=== PATIENT | male | born 1935 | race Caucasian/White ===

== ENCOUNTER 2018-03-19 13:29 | Observation (INO) | payer OTHER ==
[2018-03-19 15:13] LABS: Albumin 4.1 g/dL (3.2-5.5); Bilirubin Total 0.6 mg/dL (0.3-1.2); Protein, Total 7.3 g/dL (6.0-8.3)
--- NOTE | 2018-03-19 15:19 | RAD REPORT ---
EXAM DESCRIPTION: RAD - Chest Pa And Lat (2 Views) - 03/19/2018 3:00 pm CLINICAL HISTORY: Chest pain COMPARISON: September 2017 TECHNIQUE: PA and lateral views of the chest were obtained. FINDINGS: The lungs are clear of an acute infiltrate, failure or mass. Interstitial markings are pro minent but unchanged. Sternotomy wires are in place. Heart size is normal and central vasculature i s within normal limits. No pleural effusion or pneumothorax seen. No acute bony finding noted. Den se aortic calcifications are present without aneurysm. IMPRESSION: No acute cardiopulmonary process. Above detailed chest findings are stable from compari son.
[2018-03-19 15:27] LABS: Absolute Monocytes 0.8 K/uL (0.1-1.3); Absolute Neutrophil 3.9 K/uL (1.8-8.0); Basophils % 0.6 % (0-1.3); Eosinophils % 1.6 % (0-4.4); Hematocrit 42.4 % (39.6-49.0); Lymphocytes % 29.4 % (15.3-44.8); MCH 30.4 pg (27.0-35.0); MCV 90.2 fL (80-100); MPV 9.1 fL (7.6-11.3); Monocytes % 11.5 % (3.3-12.3)
[2018-03-19 15:45] LABS: CKMB Creatine Kinase MB 2.7 ng/ml (0.3-4.0)
[2018-03-19 16:15] LABS: Thyroid Stimulating Hormone 1.14 uIU/mL (0.34-5.60)
[2018-03-19] MEDS ORDERED: CLONIDINE HCL 0.1 MG PO PRN (18:49)
[2018-03-19] MEDS ORDERED: FINASTERIDE 5 MG PO SCH (21:00)
[2018-03-19] MEDS ORDERED: MULTIVIT MIN PO SCH (21:00)
[2018-03-19] MEDS ORDERED: SOTALOL HCL 80 MG PO SCH (21:00)
[2018-03-19] MEDS ORDERED: HYDRALAZINE 10 MG PO SCH (21:00)
[2018-03-19] MEDS ORDERED: Rosuvastatin Calcium (Crestor) 40 MG TABLET PO SCH (21:00)
[2018-03-19] MEDS ORDERED: AMLODIPINE 10 MG PO SCH (21:00)
[2018-03-19] MEDS ORDERED: LYCOPEN PO SCH (21:00)
[2018-03-19] MEDS ORDERED: LUTEIN PO SCH (21:00)
[2018-03-19] MEDS ORDERED: [UNRECOGNIZED DRUG - OTHER] PO SCH (21:00)
--- NOTE | 2018-03-19 22:52 | EKG ---
Test Date: 2018-03-19 Test Time: 15:27:30 Geology Scientist: DELMA MEASUREMENT RESULTS: Intervals: Rate: 72 HI: 192 QRSD: 84 QT: 404 QTc: 442 Grulla: P: 42 HI: 192 QRS: 30 T: 59 INTERPRETIVE STATEMENTS: Normal sinus rhythm Nonspecific ST and T wave abnormality Abnormal ECG Compared to ECG 10/25/2017 12:05:15 ST (T wave) deviation now present Sinus bradycardia no longer present Electronically Signed On 03-19-18 22:51:38 CDT by Aneudy Joel
--- NOTE | 2018-03-20 02:12 | HP ---
Date of Admission: 03/19/2018 Chief Complaint: Chest pain. History Of Present Illness: This is an 82-year-old male patient with multiple comorbidities includin g hypertension, prior history of coronary artery disease, atrial fibrillation, hyperlipidemia, takes his medications regularly. He was feeling fine until today he started to have some chest pain. The patient says that yesterday he noted that his heart rate was faster than normal and it was around 80 to 90 beats per minute and same thing happened today and today he also felt like having some chest pa in describing as pressure type of sensation in the center of his chest and this was while he was rest ing. It lasted for a while, had some associated shortness of breath. No nausea, vomiting. No diaph oresis. He has similar type of chest discomfort about 2 weeks ago as he says. After he was evaluate d at the office, decision was made to admit him to the hospital. Medications: List reviewed. Review of Systems: Cardiovascular: As mentioned above. All other systems reviewed and negative. Allergies: TO IODINE, CIPRO, AND PENICILLIN. Social History: Prior history of smoking in the past, not at present time. Use of alcohol negative. Family History: Significant for hypertension and coronary artery disease. Past Medical History: Significant for coronary artery disease, hypertension, hypothyroidism, impaire d fasting glucose, gastroesophageal reflux disease, hyperlipidemia, benign prostatic hypertrophy, ost eoarthritis at multiple sites, depression, hyperlipidemia. Cardiac cath done August 31, 2015 showed that 2 out of 3 grafts were patent and the patient did not require any intervention at that time. Past Surgical History: Significant for coronary artery bypass surgery in 2013, back surgery, laparos copic knee surgery, appendectomy, cholecystectomy, hernia repair, tonsillectomy, angioplasty with yola nt placement in leg. Physical Examination: Vital Signs: Last temperature 98, pulse 72, respiratory rate 16, blood pressure 132/68, oxygen satur ation 96%. Height 5 feet 8 inches. Weight 197 pounds. General: Awake, alert, oriented, not in distress. HEENT: Head atraumatic, normocephalic. Conjunctivae nonerythematous. Sclerae white. Mouth, no thr ush or edema noted. Ears/Nose, no mass, lesion, discharge noted. Neck: Supple. No JVD, lymph nodes, bruit, thyromegaly noted. Lungs: Bilateral good equal air entry. Clear to auscultation. No rhonchi. No rales. Heart: Presence of systolic murmur. No gallop. Abdomen: Soft, bowel sounds normal. No guarding, rigidity, tenderness, mass, hepatosplenomegaly, di stention, or bruit noted. Extremities: No leg edema. No calf tenderness. Skin: No rash, ulcer, cellulitis. Lymphatics: No lymph node enlargement in neck, supraclavicular, infraclavicular region. Neuro: No focal neurological deficit. Chest: Unremarkable. External Genitalia: Deferred. Rectal: Deferred. Diagnostic Data: Chest x-ray: No acute intrathoracic changes. EKG: No acute ST-T changes. Laboratory Data: White count 6.8, hemoglobin 14.3, platelets 170. Sodium 136, potassium 4, chloride 101, bicarb 26, BUN 15, creatinine 1.13, glucose 112. Liver function tests unremarkable. Troponin less than 0.03. TSH 1.14. Impression: 1.Angina. 2.Coronary artery disease. 3.Hypertension. 4.Hyperlipidemia. 5.Impaired fasting glucose. 6.Hypothyroidism. 7.Gastroesophageal reflux disease. 8.Benign prostatic hypertrophy. 9.Osteoarthritis, multiple sites. 10.Depression. Plan: Admit the patient to hospital for further evaluation and management of this problem. The marissa ent is appropriate for observation and we will admit him to telemetry. Consult Cardiology. We will repeat cardiac enzymes tonight. Home medications will be continued per order including his Xarelto a nd we will get echo with Doppler tomorrow. Follow up with building engineer and I will see him tomorrow m orning for followup. Details and plan of treatment discussed with the patient. APRIL/MODL Voice ID: [id number]
[2018-03-20 04:34] VITALS: O2SAT 96
--- NOTE | 2018-03-20 07:54 | ECHO ---
HEIGHT: 5 ft 8 in WEIGHT: 197 lb 8 oz DATE OF STUDY: 03/19/[address]: Kirit Justice MD 2-DIMENSIONAL: YES M.MODE: YES DOPPLER: YES COLOR FLOW: YES TDS: NO PORTABLE: NO DEFINITY: NO BUBBLE STUDY: NO DIAGNOSIS: CONGESTIVE HEART FAILURE CARDIAC HISTORY: CATHERIZATION: YES SURGERY: YES PROSTHETIC VALVE: NO PACEMAKER: NO MEASUREMENTS (cm) DIASTOLIC (NORMALS) SYSTOLIC (NORMALS) IVSd 1.2 (0.6-1.2) LA Diam 4.3 (1.9-4.0) LVEF 61% LVIDd 3.5 (3.5-5.7) LVIDs 2.4 (2.0-3.5) %FS 32% LVPWd 1.2 (0.6-1.2) Ao Diam 2.6 (2.0-3.7) 2 DIMENSIONAL ASSESSMENT: RIGHT ATRIUM: NORMAL LEFT ATRIUM: DILATED RIGHT VENTRICLE: NORMAL LEFT VENTRICLE: LEFT VENTRICULAR HYPERTROPHY TRICUSPID VALVE: NORMAL MITRAL VALVE: MILD MITRAL ANNULAR CALCIFICATION PULMONIC VALVE: NORMAL AORTIC VALVE: SCLEROSIS PERICARDIAL EFFUSION: NONE AORTIC ROOT: NORMAL LEFT VENTRICULAR WALL MOTION: PARADOXICAL SEPTAL MOTION. DOPPLER/COLOR FLOW: MILD AORTIC, MITRAL AND TRICUSPID REGURGITATION. NORMAL RIGHT VENTRICULAR SYSTOLIC PRESSURE. COMMENTS: NORMAL LEFT VENTRICULAR EJECTION FRACTION WITH PARADOXICAL SEPTAL MOTION. DILATED LEFT ATRIUM. LEFT VENTRICULAR HYPERTROPHY. MILD MITRAL ANNULAR CALCIFICATION. AORTIC SCLEROSIS WITH NO STENOSIS. MILD AORTIC, MITRAL AND TRICUSPID REGURGITATION. TECHNOLOGIST: Giovanny RAMIREZ
[2018-03-20] MEDS ORDERED: OMEPRAZOLE 40 MG PO SCH (09:00)
[2018-03-20] MEDS ORDERED: LEVOTHYROXINE 0.1 MG PO SCH (09:00)
[2018-03-20] MEDS ORDERED: CITALOPRAM HYDROBROMIDE 20 MG PO SCH (09:00)
[2018-03-20] MEDS ORDERED: NITROGLYCERIN 0.4 MG/TAB SL PRN (11:02)
[2018-03-20] MEDS ORDERED: ALPRAZOLAM 0.25 MG TABLET PO PRN (12:00)
--- NOTE | 2018-03-20 16:37 | CON ---
Date of Consultation: 03/20/[address] Justice's service on 03/19/2018. I saw the patient on 03/20/2018. Reason For Consultation: Chest pain. History Of Present Illness: Mr. FONSECA is an 82-year-old white male. He is very well known to Dr. Zachary carpenter and myself from previous office visits and admissions. He normally sees Dr. Joel as an outpat ient. He saw Dr. Justice yesterday with symptoms that are consistent with angina. Dr. Justice admitted aníbal mitchell for further evaluation and treatment. He has ruled out for an SC. His troponin was negative. CPK s, MBs, and BNPs are negative. His EKG showed nonspecific changes. Chest x-ray is negative. Echoca rdiogram, which was done before I saw him showed normal ejection fraction with paradoxical septal wal l motion, which is old. The symptoms are basically some chest pain with and without exertion that ar e substernal. They last 10-15 minutes, resolved spontaneously. Recently, Dr. Joel suddenly decrea sed his Betapace dose to 40 b.i.d. from 80 b.i.d. He does not know why. He was not aware of any issu es himself, but Dr. Joel I believe must have noticed significant bradycardia. He since then has be en noticing rapid heartbeat in the 90s, which is high for him. Whenever his heart races, he had ches t pain. Past Medical History: Include atrial fibrillation, hypertension, coronary artery disease, gastroesop hageal reflux disease, dyslipidemia, and depression. Heart catheterization in 2014, showed patent LI MA and another vein graft. He had 1 vein graft that was occluded. A stress Cardiolite, which was do ne in our office in January 2017 was normal with an ejection fraction of 75%. Allergies: IODINE, PENICILLIN, AND CIPROFLOXACIN. Review of Systems: Negative. Social History: Negative. Family History: Negative. Medications: Include Xarelto, Crestor, Betapace 40 b.i.d., hydralazine, thyroid, Neurontin, Proscar, Xanax, Norvasc, and clonidine. Physical Examination: Vital Signs: Stable. He was in normal rhythm. Heart rate was 68. HEENT: Negative. Neck: Supple. No bruits. Chest: Clear. CARDIAC: Revealed a regular rhythm and rate with S4 gallops. No murmurs or rubs. Abdomen: Benign. EXTREMITIES: Revealed no clubbing, cyanosis, or edema. Diagnostic Data: As stated earlier. Impression: 1.Coronary disease with stable angina. 2.Elevated heart rate for him with more palpitation, probably secondary to lowering the dose of Beta pace. 3.History of hypertension. 4.History of atrial fibrillation that has resolved. 5.History of gastroesophageal reflux disease. 6.Depression. 7.Dyslipidemia. Plan: I will definitely continue his present regimen for now except, I would like to go back on the Betapace to 80 mg 1 p.o. b.i.d. The patient had never complained of bradycardia type symptoms. I wi ll make sure he sees Dr. Joel sooner than his usual appointment in May. We may want to repeat a nother stress test on him. I will do that as an outpatient. The case was discussed with Dr. Justice. TORRI/RUFINA Voice ID: [id number] Report ID: [id number]
[2018-03-20] MEDS ORDERED: RIVAROXABAN 20 MG PO SCH (17:00)
[2018-03-20 17:29] VITALS: BP 143/69; TEMP 98.2
--- NOTE | 2018-03-21 18:31 | DS ---
Date of Discharge: 03/20/2018 Disposition: Discharged to go home. Physical Examination: HEENT Examination: Unremarkable. Lungs: Clear to auscultation. Heart: Sounds normal. Abdomen: Soft, bowel sounds normal. No guarding, rigidity, tenderness, or distention. Extremity Exam: No leg edema. Discharge Medications And Instructions: Continue all prior home medication, except change sotalol 80 mg, patient to take 1 tablet p.o. 2 times a day. Follow up with Dr. Joel in 2 weeks and follow up at my office in 1 month. Hospital Course: An 82-year-old male patient, admitted to the hospital with complaints of chest pain . Please see dictated H and P for more information. The patient says normally, his heart rate is ar ound 50 to 60 beats per minute, but in the last couple of days prior to admission. He noted that hea rt rate was around 80 to 90 beats per minute and he was having some chest pressure type of feeling wi th some associated shortness of breath. He has history of atrial fibrillation, and in November is year, his professional employer consultant, Dr. Joel, reduced dose of his sotalol. After he came in to see me ben souza, he was admitted to the hospital. His IA was ruled out by getting serial cardiac enzymes. The patient was seen in consultation by professional employer consultant, Dr. Miranda, and details were discussed with him to day. Echocardiogram done during this hospitalization, showed normal ejection fraction of 61%, mild a ortic, mitral and tricuspid regurgitation. The patient was asymptomatic after his admission. Detail s were discussed with Dr. Miranda, who recommended for patient to go up on the dose of his sotalol fr om half tablet 2 times a day to 1 tablet 2 times a day, and for the patient to follow up with cardiol ogist, Dr. Joel. Dr. Miranda also informed me that about a year ago, patient had a negative stress test done at office of professional employer consultant. So, another stress test was not recommended during this hospit alization. Final Diagnoses: 1.Angina. 2.Coronary artery disease. 3.Hypertension. 4.Hyperlipidemia. 5.Impaired fasting glucose. 6.Hypothyroidism. 7.Paroxysmal atrial fibrillation. 8.Gastroesophageal reflux disease. 9.Benign prostatic hypertrophy. 10.Osteoarthritis, multiple sites. 11.Depression. APRIL/MODL Voice ID: [id number] Report ID: [id number]
== END 2018-03-20 17:24 | disposition home or self-care (01) ==
LOC: 4TH 13:46
PROVIDERS: ADMIT Internal Medicine; ATTEND Internal Medicine
DX: I25.119 Atherosclerotic heart disease of native coronary artery with unspecified angina pectoris (principal); E03.9 Hypothyroidism, unspecified; I48.0 Paroxysmal atrial fibrillation; I10 Essential (primary) hypertension; K21.9 Gastro-esophageal reflux disease without esophagitis; E78.5 Hyperlipidemia, unspecified; N40.0 Benign prostatic hyperplasia without lower urinary tract symptoms; M19.90 Unspecified osteoarthritis, unspecified site; F32.9 Major depressive disorder, single episode, unspecified; R73.01 Impaired fasting glucose; Z95.1 Presence of aortocoronary bypass graft; Z88.0 Allergy status to penicillin; Z91.041 Radiographic dye allergy status
CPT/HCPCS: 36415; 71046; 80053; 82550; 82553; 83735; 84443; 84484 ×2; 85025; 93005; 93306; G0378; G0379

== ENCOUNTER 2018-10-15 12:12 | Observation (INO) | payer OTHER ==
[2018-10-15 12:32] LABS: Absolute Lymphocytes (CBC) 1.5 K/uL (0.7-4.9); Absolute Monocytes 0.5 K/uL (0.1-1.3); Absolute Neutrophil 2.4 K/uL (1.8-8.0); Basophils % 1.1 % (0-1.3); Hematocrit 42.7 % (39.6-49.0); Lymphocytes % 32.8 % (15.3-44.8); MPV 9.2 fL (7.6-11.3); Monocytes % 11.6 % (3.3-12.3)
[2018-10-15 12:35] LABS: Protime INR 1.52
[2018-10-15 12:52] LABS: ALT/SGPT 22 U/L (12-78); AST/SGOT 15 U/L (15-37); Albumin 3.6 g/dL (3.4-5.0); Alkaline Phosphatase 65 U/L (45-117); BUN Blood Urea Nitrogen 15 mg/dL (7-18); Bicarbonate 27 mmol/L (21-32); Bilirubin Direct < 0.1 mg/dL (0-0.2); Bilirubin Total 0.5 mg/dL (0.2-1.0); Glucose Level 109 mg/dL (74-106); Magnesium 2.4 mg/dL (1.8-2.4); NT PRO-BNP 177 pg/mL (<450); Potassium 4.1 mmol/L (3.5-5.1); Protein, Total 7.3 g/dL (6.4-8.2); Sodium Level 138 mmol/L (136-145); Troponin (Emerg Dept Use Only) < 0.02 ng/mL (0.0-0.045)
--- NOTE | 2018-10-15 13:17 | RAD REPORT ---
EXAM DESCRIPTION: RAD - Chest Single View - 10/15/2018 1:08 pm CLINICAL HISTORY: Left-sided chest pain COMPARISON: October 06 TECHNIQUE: AP portable chest image was obtained 1255 hour . FINDINGS: Lung volumes are low and exam is underpenetrated in technique. No peripheral mass or conso lidation. Patient has mild chronic interstitial lung disease similar to comparison. No acute failure or volume overload. Heart and vasculature are normal. No measurable pleural effusion and no pneumotho rax. No acute bony abnormality seen. No acute aortic findings suspected. IMPRESSION: Limited shallow inspiration film without acute cardiopulmonary finding. No significant change from comparison.
--- NOTE | 2018-10-15 16:33 | ER ---
Nurse's Notes [facility] Name: Thomas Glass Jr Age: 82 yrs Sex: Male : 1935 Arrival Date: 10/15/2018 Time: 12:16 Bed 6 Private MD: Diagnosis: Chest pain, unspecified Presentation: 10/15 12:06 Presenting complaint: EMS states: left sided chest pain described as "vibration" sv started around 0800 and then moved to the left lower chest wall and now describes as "throbbing pain", c/o mild SOB but has subsided. c/o generalized weakness and dizziness yesterday but has subsided. ASA 324 mg PO given. Transition of care: patient was not received from another setting of care. Onset of symptoms was October 15, 2018 at 08:00. Risk Assessment: Do you want to hurt yourself or someone else? Patient reports no desire to harm self or others. Initial Sepsis Screen: Does the patient meet any 2 criteria? No. Patient's initial sepsis screen is negative. Does the patient have a suspected source of infection? No. Patient's initial sepsis screen is negative. Care prior to arrival: Medication(s) given: ASA, 81 mg, x 4. 12:06 Method Of Arrival: EMS: [facility] sv 12:06 Acuity: NI 3 sv Triage Assessment: 12:10 General: Appears in no apparent distress. comfortable, Behavior is calm, cooperative, sv appropriate for age. Pain: Denies pain. Neuro: Level of Consciousness is awake, alert, obeys commands, Oriented to person, place, time, situation, Moves all extremities. Full function Gait is steady. Cardiovascular: Heart tones S1 S2 present Patient's skin is warm and dry. Pulses are 3+ in right radial artery and left radial artery Rhythm is sinus bradycardia. Respiratory: Airway is patent Respiratory effort is even, unlabored, Respiratory pattern is regular, symmetrical, Breath sounds are clear bilaterally. Derm: Skin is pink, warm \\T\\ dry. Historical: - Allergies: 12:37 Ciprofloxacin HCl; sv 12:37 Iodinated Contrast Media - IV Dye; sv 12:37 PENICILLINS; sv - Home Meds: 12:37 finasteride 5 mg Oral tab 1 tab nightly for Symptomatic Benign Prostatic Hyperplasia sv [Active]; levothyroxine 100 mcg tab 1 tab once daily for Hypothyroidism [Active]; gabapentin 300 mg Oral cap twice a day for Neuropathic Pain [Active]; sotalol 120 mg Oral tab 1 tab 2 times per day [Active]; Xarelto 20 mg Oral tab 1 tab nightly [Active]; alprazolam 0.25 mg Oral tab nightly for Anxiety with Depression [Active]; Crestor 40 mg Oral tab 1 tab nightly for Hypercholesterolemia [Active]; citalopram 10 mg tab 1 tab once daily for Anxiety with Depression [Active]; amlodipine 10 mg tab 1 tab once daily for Hypertension [Active]; clonidine HCl 0.1 mg Oral tab as needed [Active]; omeprazole 40 mg Oral cpDR 1 cap once daily for Gastroesophageal reflux [Active]; Centrum Silver Oral daily [Active]; furosemide 40 mg Oral tab 1 tab once daily [Active]; - PMHx: 12:37 ATHEROSCLEROSIS; BPH; Cholelithiasis; GERD; High Cholesterol; Hypertension; sv Hypothyroidism; - PSHx: 12:37 CABG; sv - Immunization history:: Flu vaccine is up to date. - Social history:: Smoking status: unknown Patient/guardian denies using alcohol. - Ebola Screening: : No symptoms or risks identified at this time. Screenin:10 Abuse screen: Denies threats or abuse. Denies injuries from another. Nutritional sv screening: No deficits noted. Tuberculosis screening: No symptoms or risk factors identified. Fall Risk None identified. Assessment: 12:44 Reassessment: Patient appears in no apparent distress at this time. No changes from sv previously documented assessment. Patient and/or family updated on plan of care and expected duration. Pain level reassessed. Patient is alert, oriented x 3, equal unlabored respirations, skin warm/dry/pink. 15:40 Reassessment: Patient appears in no apparent distress at this time. No changes from sv previously documented assessment. Patient and/or family updated on plan of care and expected duration. Pain level reassessed. Patient is alert, oriented x 3, equal unlabored respirations, skin warm/dry/pink. 17:08 Reassessment: Patient appears in no apparent distress at this time. No changes from sv previously documented assessment. Patient and/or family updated on plan of care and expected duration. Pain level reassessed. Patient is alert, oriented x 3, equal unlabored respirations, skin warm/dry/pink. Nurse to call back for report. 17:29 Reassessment: Patient appears in no apparent distress at this time. No changes from sv previously documented assessment. Patient and/or family updated on plan of care and expected duration. Pain level reassessed. Patient is alert, oriented x 3, equal unlabored respirations, skin warm/dry/pink. 17:50 Reassessment: Pt eating his dinner tray before going upstairs. sv Vital Signs: 12:10 BP 144 / 71; Pulse 57; Resp 15; Temp 98; Pulse Ox 96% ; Weight 87.54 kg; Height 5 ft. 8 sv in. (172.72 cm); Pain 0/10; 13:19 BP 114 / 65; Pulse 54; Resp 14; Pulse Ox 95% ; sv 14:05 BP 134 / 66; Pulse 53; Resp 12; Pulse Ox 95% ; sv 14:44 BP 140 / 63; Pulse 60; Resp 17; Pulse Ox 99% ; sv 15:39 BP 146 / 76; Pulse 53; Resp 14; Pulse Ox 99% ; sv 16:18 BP 137 / 68; Pulse 52; Resp 14; Pulse Ox 99% ; sv 17:09 BP 155 / 70; Pulse 53; Resp 16; Pulse Ox 99% ; sv 12:10 Body Mass Index 29.35 (87.54 kg, 172.72 cm) sv ED Course: 12:10 Arm band placed on. sv 12:10 Patient has correct armband on for positive identification. Placed in gown. Bed in low sv position. Call light in reach. Side rails up X 1. eyelet riveter on. Pulse ox on. NIBP on. Door closed. Head of bed elevated. 12:16 Patient arrived in ED. sv 12:17 Jenni Padgett, MARIANN is Primary Nurse. sv 12:25 Initial lab(s) drawn, by nm, sent to lab. Inserted saline lock: 20 gauge in left sv forearm, using aseptic technique. Blood collected. Flushed left forearm with 5 ml normal saline. 12:27 EKG done, by remanufacturing technician. reviewed by Harry Leigh MD. at1 12:30 Harry Leigh MD is Attending Physician. kdr 12:33 Triage completed. sv 12:44 ED physician to see patient. sv 12:44 Awaiting lab results, Awaiting for x-ray. sv 12:44 Patient maintains SpO2 saturation greater than 95% on room air. sv 12:57 X-ray completed. Portable x-ray completed in exam room. Patient tolerated procedure jb2 well. 13:09 XRAY Chest (1 view) In Process Unspecified. EDMS 13:19 Awaiting radiology results. Awaiting re-evaluation by ER provider. sv 14:06 Awaiting re-evaluation by ER provider. sv 16:32 Tracy Justice MD is Hospitalizing Provider. kdr 17:07 Patient admitted, IV remains in place. intact. sv 17:08 No provider procedures requiring assistance completed. sv Administered Medications: No medications were administered Outcome: 16:32 Decision to Hospitalize by Provider. kdr 17:29 Admitted to Tele accompanied by tech, via stretcher, room 413, with chart, Report sv called to Xiomara WAITE 17:29 Condition: stable 17:29 Instructed on the need for admit. 18:01 Patient left the ED. sv Signatures: Dispatcher [employer] Jenni Narayan RN RN sv Harry Leigh MD MD kdr Buechter, Jesse jb2 Kelly Glass, fire investigation manager EKG Tat1 Corrections: (The following items were deleted from the chart) 14:45 14:44 Pulse 60bpm; Resp 17bpm; Pulse Ox 99%; sv sv
--- NOTE | 2018-10-15 16:33 | EDPHYS ---
Physician Documentation [facility] Name: Thomas Glass Jr Age: 82 yrs Sex: Male : 1935 Arrival Date: 10/15/2018 Time: 12:16 Bed 6 Private MD: ED Physician Harry Leigh HPI: 10/15 18:12 This 82 yrs old Male presents to ER via EMS with complaints of Chest Pain. kdr 18:12 The patient or guardian reports chest pain that is located primarily in the anterior kdr chest wall, left, left clavicle. Onset: suddenly, at 08:30. The pain does not radiate. Initially had an unusual sensation to left shoulder that they drifted down into left chest. 18:12 Associated signs and symptoms: The patient has no apparent associated signs or kdr symptoms. The chest pain is described as aching, sharp. Duration: The patient or guardian reports multiple episodes, that are intermittent, that wax and wane, with no pattern. Modifying factors: The symptoms are alleviated by nothing. the symptoms are aggravated by nothing. Severity of pain: At its worst the pain was mild in the emergency department the pain has improved moderately. The patient has not experienced similar symptoms in the past. The patient has not recently seen a physician. Historical: - Allergies: 12:37 Ciprofloxacin HCl; sv 12:37 Iodinated Contrast Media - IV Dye; sv 12:37 PENICILLINS; sv - Home Meds: 12:37 finasteride 5 mg Oral tab 1 tab nightly for Symptomatic Benign Prostatic Hyperplasia sv [Active]; levothyroxine 100 mcg tab 1 tab once daily for Hypothyroidism [Active]; gabapentin 300 mg Oral cap twice a day for Neuropathic Pain [Active]; sotalol 120 mg Oral tab 1 tab 2 times per day [Active]; Xarelto 20 mg Oral tab 1 tab nightly [Active]; alprazolam 0.25 mg Oral tab nightly for Anxiety with Depression [Active]; Crestor 40 mg Oral tab 1 tab nightly for Hypercholesterolemia [Active]; citalopram 10 mg tab 1 tab once daily for Anxiety with Depression [Active]; amlodipine 10 mg tab 1 tab once daily for Hypertension [Active]; clonidine HCl 0.1 mg Oral tab as needed [Active]; omeprazole 40 mg Oral cpDR 1 cap once daily for Gastroesophageal reflux [Active]; Centrum Silver Oral daily [Active]; furosemide 40 mg Oral tab 1 tab once daily [Active]; - PMHx: 12:37 ATHEROSCLEROSIS; BPH; Cholelithiasis; GERD; High Cholesterol; Hypertension; sv Hypothyroidism; - PSHx: 12:37 CABG; sv - Immunization history:: Flu vaccine is up to date. - Social history:: Smoking status: unknown Patient/guardian denies using alcohol. - Ebola Screening: : No symptoms or risks identified at this time. ROS: 18:12 Constitutional: Negative for fever, chills, and weight loss, Eyes: Negative for injury, kdr pain, redness, and discharge, ENT: Negative for injury, pain, and discharge, Neck: Negative for injury, pain, and swelling, Respiratory: Negative for shortness of breath, cough, wheezing, and pleuritic chest pain, Abdomen/GI: Negative for abdominal pain, nausea, vomiting, diarrhea, and constipation, Back: Negative for injury and pain, : Negative for injury, bleeding, discharge, and swelling, MS/Extremity: Negative for injury and deformity, Skin: Negative for injury, rash, and discoloration, Neuro: Negative for headache, weakness, numbness, tingling, and seizure activity. Psych: Negative for depression, anxiety, suicide ideation, homicidal ideation, and hallucinations, Allergy/Immunology: Negative for hives, rash, and allergies, Endocrine: Negative for neck swelling, polydipsia, polyuria, polyphagia, and marked weight changes, Hematologic/Lymphatic: Negative for swollen nodes, abnormal bleeding, and unusual bruising. 18:12 Cardiovascular: Positive for chest pain, of the left supraclavicular area, left clavicle and anterior aspect of left upper chest, Negative for edema, orthopnea, palpitations, paroxysmal nocturnal dyspnea. Exam: 18:12 Constitutional: This is a well developed, well nourished patient who is awake, alert, kdr and in no acute distress. Head/Face: Normocephalic, atraumatic. Eyes: Pupils equal round and reactive to light, extra-ocular motions intact. Lids and lashes normal. Conjunctiva and sclera are non-icteric and not injected. Cornea within normal limits. Periorbital areas with no swelling, redness, or edema. Neck: Trachea midline, no thyromegaly or masses palpated, and no cervical lymphadenopathy. Supple, full range of motion without nuchal rigidity, or vertebral point tenderness. No Meningismus. Chest/axilla: Normal chest wall appearance and motion. Nontender with no deformity. No lesions are appreciated. Cardiovascular: Regular rate and rhythm with a normal S1 and S2. No gallops, murmurs, or rubs. Normal PMI, no JVD. No pulse deficits. Respiratory: Lungs have equal breath sounds bilaterally, clear to auscultation and percussion. No rales, rhonchi or wheezes noted. No increased work of breathing, no retractions or nasal flaring. Abdomen/GI: Soft, non-tender, with normal bowel sounds. No distension or tympany. No guarding or rebound. No evidence of tenderness throughout. Back: No spinal tenderness. No costovertebral tenderness. Full range of motion. Skin: Warm, dry with normal turgor. Normal color with no rashes, no lesions, and no evidence of cellulitis. MS/ Extremity: Pulses equal, no cyanosis. Neurovascular intact. Full, normal range of motion. Neuro: Awake and alert, GCS 15, oriented to person, place, time, and situation. Cranial nerves II-XII grossly intact. Motor strength 5/5 in all extremities. Sensory grossly intact. Cerebellar exam normal. Normal gait. Psych: Awake, alert, with orientation to person, place and time. Behavior, mood, and affect are within normal limits. Vital Signs: 12:10 BP 144 / 71; Pulse 57; Resp 15; Temp 98; Pulse Ox 96% ; Weight 87.54 kg; Height 5 ft. 8 sv in. (172.72 cm); Pain 0/10; 13:19 BP 114 / 65; Pulse 54; Resp 14; Pulse Ox 95% ; sv 14:05 BP 134 / 66; Pulse 53; Resp 12; Pulse Ox 95% ; sv 14:44 BP 140 / 63; Pulse 60; Resp 17; Pulse Ox 99% ; sv 15:39 BP 146 / 76; Pulse 53; Resp 14; Pulse Ox 99% ; sv 16:18 BP 137 / 68; Pulse 52; Resp 14; Pulse Ox 99% ; sv 17:09 BP 155 / 70; Pulse 53; Resp 16; Pulse Ox 99% ; sv 12:10 Body Mass Index 29.35 (87.54 kg, 172.72 cm) sv MDM: 16:32 Patient medically screened. kdr 18:12 HEART Score: History: Moderately Suspicious (1), ECG: Non specific repolarization kdr disturbance / LBTB / PM (1), Age: > or = 65 years (2), Risk Factors: 1 or 2 risk factors (1), Troponin: < or = 1 x Normal Limit (0), Total Score =. Data reviewed: vital signs, nurses notes, lab test result(s), EKG, radiologic studies. Counseling: I had a detailed discussion with the patient and/or guardian regarding: the historical points, exam findings, and any diagnostic results supporting the discharge/admit diagnosis, lab results, radiology results, the need for further work-up and treatment in the hospital. 10/15 12:17 Order name: Basic Metabolic Panel; Complete Time: 15:11 sv 10/15 12:17 Order name: CBC with Diff; Complete Time: 15:11 sv 10/15 12:17 Order name: LFT's; Complete Time: 15:11 sv 10/15 12:17 Order name: Magnesium; Complete Time: 15:11 sv 10/15 12:17 Order name: NT PRO-BNP; Complete Time: 15:11 sv 10/15 12:17 Order name: PT-INR; Complete Time: 15:11 sv 10/15 12:17 Order name: Troponin (emerg Dept Use Only); Complete Time: 15:11 sv 10/15 16:53 Order name: Basic Metabolic Panel EDNY 10/15 16:53 Order name: Basic Metabolic Panel EDNY 10/15 16:53 Order name: CBC with Automated Diff EDMS 10/15 16:53 Order name: CBC with Automated Diff EDMS 10/15 16:54 Order name: Troponin I EDNY 10/15 16:54 Order name: Troponin I EDNY 10/15 16:54 Order name: Troponin I EDNY 10/15 12:17 Order name: XRAY Chest (1 view); Complete Time: 15:11 sv 10/15 12:17 Order name: EKG; Complete Time: 12:20 sv 10/15 12:17 Order name: Cardiac monitoring; Complete Time: 12:41 sv 10/15 12:17 Order name: EKG - Nurse/Tech; Complete Time: 12:41 sv 10/15 12:17 Order name: IV Saline Lock; Complete Time: 12:41 sv 10/15 12:17 Order name: Labs collected and sent; Complete Time: 12:41 sv 10/15 12:17 Order name: O2 Per Protocol; Complete Time: 12:41 sv 10/15 12:17 Order name: O2 Sat Monitoring; Complete Time: 12:41 sv 10/15 16:53 Order name: CONS Physician Consult EDMS 10/15 16:53 Order name: Regular EDMS 10/15 16:53 Order name: EKG Electrocardiogram EDMS 10/15 16:53 Order name: EKG Electrocardiogram EDMS 10/15 16:53 Order name: EKG Electrocardiogram EDMS 10/15 16:53 Order name: EKG Electrocardiogram EDMS Administered Medications: No medications were administered Disposition: 10/15/18 16:32 Hospitalization ordered by Tracy Justice for Observation. Preliminary diagnosis is Chest pain, unspecified. - Bed requested for Telemetry/MedSurg (observation). - Status is Observation. sv - Condition is Fair. - Problem is new. - Symptoms have improved. UTI on Admission? No Signatures: Dispatcher [facility] EDNY Jenni Padgett RN RN Cordelia David RN RN Harry Gong MD MD kdr Corrections: (The following items were deleted from the chart) 17:00 16:32 Hospitalization Ordered by A Reshma MCWILLIAMS for Observation. Preliminary diagnosis is dw Chest pain, unspecified. Bed requested for Telemetry/MedSurg (observation). Status is Observation. Condition is Fair. Problem is new. Symptoms have improved. UTI on Admission? No. kdr 18:01 17:00 10/15/2018 16:32 Hospitalization Ordered by A Reshma MCWILLIAMS for Observation. sv Preliminary diagnosis is Chest pain, unspecified. Bed requested for Telemetry/MedSurg (observation). Status is Observation. Condition is Fair. Problem is new. Symptoms have improved. UTI on Admission? No. dw
[2018-10-15] MEDS ORDERED: ACETAMINOPHEN 500 MG TAB PO PRN (16:50)
[2018-10-15] MEDS ORDERED: ONDANSETRON 4 MG/2 ML VIAL IV PRN (16:50)
--- NOTE | 2018-10-15 17:16 | EKG ---
Test Date: 2018-10-15 Test Time: 12:21:08 Needle Grader: DELMA MEASUREMENT RESULTS: Intervals: Rate: 58 AL: 194 QRSD: 78 QT: 470 QTc: 461 [place]: P: 21 AL: 194 QRS: 13 T: 60 INTERPRETIVE STATEMENTS: Sinus bradycardia Possible Left atrial enlargement Nonspecific T wave abnormality Abnormal ECG Compared to ECG 03/19/2018 15:27:30 T-wave abnormality now present Sinus rhythm no longer present ST (T wave) deviation no longer present Electronically Signed On 10-15-18 17:15:55 VAMP PRESSER by Aneudy Joel
[2018-10-15] MEDS ORDERED: NITROGLYCERIN SL PRN (19:21)
[2018-10-15] MEDS ORDERED: CLONIDINE HCL 0.1 MG PO PRN (19:21)
[2018-10-15] MEDS ORDERED: ALPRAZOLAM 0.25 MG PO PRN (19:21)
[2018-10-15] MEDS ORDERED: LYCOPEN PO SCH (21:00)
[2018-10-15] MEDS ORDERED: HOME MED 1 EA UNK (Rivaroxaban [Xarelto] 20 MG) PO SCH (21:00)
[2018-10-15] MEDS ORDERED: [UNRECOGNIZED DRUG - OTHER] PO SCH (21:00)
[2018-10-15] MEDS ORDERED: FINASTERIDE 5 MG PO SCH (21:00)
[2018-10-15] MEDS ORDERED: GABAPENTIN 300 MG PO SCH (21:00)
[2018-10-15] MEDS ORDERED: SOTALOL HCL 80 MG PO SCH (21:00)
[2018-10-15] MEDS ORDERED: HYDRALAZINE PO SCH (21:00)
[2018-10-15] MEDS ORDERED: HOME MED 1 EA UNK (Amlodipine [Norvasc*] 5 MG) PO SCH (21:00)
[2018-10-15] MEDS ORDERED: LUTEIN PO SCH (21:00)
[2018-10-15] MEDS ORDERED: MULTIVIT MIN PO SCH (21:00)
[2018-10-15] MEDS ORDERED: HOME MED 1 EA UNK (Rosuvastatin Calcium [Crestor] 40 MG) PO SCH (21:00)
[2018-10-15 23:07] VITALS: BMI 29.6
[2018-10-16 04:31] LABS: Absolute Lymphocytes (CBC) 1.8 K/uL (0.7-4.9); Absolute Monocytes 0.7 K/uL (0.1-1.3); Absolute Neutrophil 1.9 K/uL (1.8-8.0); Basophils % 1.2 % (0-1.3); Eosinophils % 3.5 % (0-4.4); Hematocrit 43.2 % (39.6-49.0); Lymphocytes % 38.6 % (15.3-44.8); MPV 9.1 fL (7.6-11.3); Monocytes % 15.4 % (3.3-12.3); RBC Red Blood Cell Count 4.78 M/uL (4.33-5.43)
[2018-10-16 05:09] LABS: BUN Blood Urea Nitrogen 15 mg/dL (7-18); Bicarbonate 26 mmol/L (21-32); Glucose Level 94 mg/dL (74-106); Potassium 3.6 mmol/L (3.5-5.1); Sodium Level 139 mmol/L (136-145)
--- NOTE | 2018-10-16 05:30 | HP ---
Date of Admission: 10/15/2018 Chief Complaint: Chest pain. History Of Present Illness: This is an 82-year-old male patient who lives at [facility] with multi ple comorbidities including underlying history of coronary artery disease, who was doing fine in his usual normal state of health until yesterday evening, started to have left-sided chest pain in the ar ea above the left breast. The pain lasted for approximately 2 hours and then got relieved. The pain originally started in the left shoulder region and then concentrated in the left chest area as menti oned here. He had some associated chills and shortness of breath type of feeling with this pain. Af ter the pain went away, he was able to go to sleep; and this morning when he woke up, he started to h ave this pain again. Denies any fall or injury. No cough, cold, or congestion. No expectoration. No hemoptysis. He called my office with this complaints, and he was advised to come to the emergency room. After he was evaluated in the ER, he was admitted to the hospital. I saw him this evening. The patient's pain has improved since he came in to emergency room. Medications: List reviewed. Review of Systems: Cardiovascular: As mentioned above. All other systems reviewed and negative. Allergies: TO IODINE, CIPRO, AND PENICILLIN. Social History: Prior history of smoking, not at present time. Use of alcohol is negative. Family History: Significant for hypertension and coronary artery disease. Past Medical History: Significant for coronary artery disease, hypertension, hyperlipidemia, hypothy roidism, impaired fasting glucose, gastroesophageal reflux disease, benign prostatic hypertrophy, ost eoarthritis at multiple sites, depression, and paroxysmal atrial fibrillation. Cardiac catheterizati on done on August 31, 2015, showing 2 out of 3 grafts were patent, and the patient did not require a ny intervention at that time. Past Surgical History: Significant for coronary artery bypass surgery in 2014, back surgery, laparos copic knee surgery, appendectomy, cholecystectomy, hernia repair, tonsillectomy, angioplasty with yola nt placement in leg. Physical Examination: Vital Signs: Temperature 98.1, pulse 58, respiratory rate 18, blood pressure 162/65, and oxygen satu ration 96%. His height 5 feet 8 inches, weight 195 pounds. General: Awake, alert, oriented, not in distress. HEENT: Head atraumatic, normocephalic. Conjunctivae nonerythematous. Sclerae white. Mouth, no thr ush or edema noted. Ears/Nose, no mass, lesion, discharge noted. Neck: Supple. No JVD, lymph nodes, bruit, thyromegaly noted. Lungs: Bilateral good equal air entry. Clear to auscultation. No rhonchi. No rales. Heart: Normal heart sounds, no murmur or gallop. Abdomen: Soft, bowel sounds normal. No guarding, rigidity, tenderness, mass, hepatosplenomegaly, dis tention, or bruit noted. Extremities: No leg edema. No calf tenderness. Skin: No rash, ulcer, cellulitis. Lymphatics: No lymph node enlargement in neck, supraclavicular, infraclavicular region. Neuro: No focal neurological deficit. Chest: Unremarkable. External Genitalia: Deferred. Rectal: Deferred. Laboratory Data: White count 4.6, hemoglobin 14.6, and platelets 198. Sodium 138, potassium 4.1, ch loride 106, bicarb 27, BUN 15, creatinine 1, glucose 109, and magnesium 2.4. Liver function tests un remarkable. Troponin less than 0.02. EKG; sinus bradycardia. No acute ST-T changes. Chest x-ray; no acute cardiopulmonary changes. Impression: 1.Chest pain. 2.Coronary artery disease. 3.Hypertension. 4.Hyperlipidemia. 5.Paroxysmal atrial fibrillation. 6.Chronic anticoagulation therapy. 7.Hypothyroidism. 8.Impaired fasting glucose. 9.Gastroesophageal reflux disease. 10.Benign prostatic hypertrophy. 11.Osteoarthritis, multiple sites. Plan: Admit the patient to hospital for further evaluation and management of this problem. The marissa ent is appropriate for observation. We will admit him to telemetry. Continue home medications per o rder. The patient has his medication supply from home. I have instructed him to take his nighttime medication dose including his Xarelto. So far, 2 sets of cardiac enzymes are negative. We will cons t audio visual arts director in the morning, and I will see him tomorrow morning for followup. APRIL/MODL Voice ID: [id number]
[2018-10-16] MEDS ORDERED: [UNRECOGNIZED DRUG - OTHER] PO SCH (09:00)
[2018-10-16] MEDS ORDERED: HOME MED 1 EA UNK (Citalopram Hydrobromide [Citalopram Hbr] 40 MG) PO SCH (09:00)
[2018-10-16] MEDS ORDERED: LYCOP PO SCH (09:00)
[2018-10-16] MEDS ORDERED: ASPIRIN EC 81 MG TAB PO SCH (09:00)
[2018-10-16] MEDS ORDERED: LEVOTHYROXINE 0.1 MG PO SCH (09:00)
[2018-10-16] MEDS ORDERED: IRON PO SCH (09:00)
[2018-10-16] MEDS ORDERED: MULTIVITS CA MIN PO SCH (09:00)
[2018-10-16] MEDS ORDERED: HOME MED 1 EA UNK (Omeprazole [Prilosec] 40 MG) PO SCH (09:00)
[2018-10-16 12:08] VITALS: O2SAT 94
[2018-10-16 13:14] VITALS: BP 125/62; TEMP 99
--- NOTE | 2018-10-17 04:28 | CON ---
Date of Consultation: 10/16/2018 Admitted on 10/15/[address] Justice's service. Reason For Consultation: Chest pain. History Of Present Illness: Mr. Glass is an 82-year-old white male. He is very well known to us fro m previous office visits and admissions. Over the last 2 days or so, has been having this chest pain that is more in the left shoulder and the left upper chest area. He has also been having some diarr hea and nausea but no vomiting or diaphoresis. Denied any shortness of breath. He denied fevers or chills or cough. Denied PND, orthopnea, pedal edema, palpitations, or syncope. Has already ruled ou t for RI. His CPKs and MBs were negative. Troponin was negative. Chest x-ray was negative. EKG sh owed nonspecific changes. Past Medical History: Includes hypertension, dyslipidemia, status post CABG, gastroesophageal reflux disease, hypothyroidism, and gallstones. His last catheterization in 2014 showed a patent CARLSON to t he LAD, patent vein graft to the RCA, and occluded vein graft to the OM. His last stress test was ne gative in January 2017. Allergies: HE IS ALLERGIC TO IODINE, CIPROFLOXACIN, AND PENICILLIN. Review of Systems: Negative. Social History: Negative. Family History: Noncontributory. Medications At Home: Include sotalol, Xanax, Norvasc, Crestor, Xarelto, Prilosec, clonidine as neede d, hydralazine, Synthroid, Neurontin, and finasteride. Physical Examination: Vital Signs: Stable. He was afebrile. General: He was alert, oriented x3. He was in no acute distress. HEENT: Negative. Neck: Supple without any bruit, lymphadenopathy, JVD, or thyromegaly. Chest: Clear to auscultation and percussion. Cardiac: Revealed a regular rhythm and rate with an aortic sclerosis murmur, but no gallops or rubs. Abdomen: Benign. Extremities: Revealed no clubbing, cyanosis, or edema. Skin: Dry and intact. Vascular: Revealed positive dorsalis pedis and posterior tibial bilaterally. Diagnostic Data: All within normal limit as stated earlier. Impression And Plan: 1.Atypical chest pain, although it could be possibly stable angina knowing his coronary anatomy. Hi s last stress test was in January 2017. I will make sure he gets another one as an outpatient and see us in the near future. I would continue his present regimen, although it is possible that we could a dd Imdur or certainly could add Ranexa as well. 2.Atrial fibrillation and sinus rhythm, on sotalol and Xarelto. We will continue monitoring that. 3.Dyslipidemia, on Crestor. He has adequate LDL. 4.Gastroesophageal reflux, on Prilosec. 5.Anxiety, on Xanax. 6.Hypertension, on Norvasc, hydralazine, and clonidine. This is well controlled. 7.Hypothyroidism, on Synthroid. 8.Neuropathy, on Neurontin. 9.Benign prostatic hypertrophy, on finasteride. 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 11.History of gallstones. The case was discussed with Dr. Justice. Case was discussed with the patient and the nurses. 45 minute s approximate were spent in the care of Mr. Glass. TORRI/RUFINA Voice ID: [id number] Report ID: [id number]
--- NOTE | 2018-10-17 07:02 | EKG ---
Test Date: 2018-10-16 Test Time: 08:20:59 Cremator: DELMA MEASUREMENT RESULTS: Intervals: Rate: 60 IL: 226 QRSD: 84 QT: 452 QTc: 452 [place]: P: 44 IL: 226 QRS: 21 T: 46 INTERPRETIVE STATEMENTS: Sinus rhythm with sinus arrhythmia with 1st degree AV block Nonspecific T wave abnormality Abnormal ECG Compared to ECG 10/15/2018 12:21:08 First degree AV block now present Sinus bradycardia no longer present T-wave abnormality still present Electronically Signed On 10-17-18 06:53:28 TOUCH UP PAINTER HAND by Toni Miranda
--- NOTE | 2018-10-17 20:10 | DS ---
Date of Discharge: 10/16/2018 The patient was seen this morning for followup. Denies any chest pain or shortness of breath. No co mplaints reported this morning. Physical Examination: Vital Signs: Reviewed. HEENT: Unremarkable. Lungs: Clear to auscultation. Heart: Sounds normal. Abdomen: Soft. Bowel sounds normal. No guarding, rigidity, tenderness, or distention. Extremities: No leg edema. Laboratory Data: This morning, white count 4.6, hemoglobin 14.8, and platelets 183. Sodium 139, pot assium 3.6, chloride 105, bicarb 26, BUN 15, creatinine 0.80, and glucose 94. Troponin less than 0.0 2 x3. Hospital Course: This is an 82-year-old male patient with multiple comorbidities including hypertens ion, hyperlipidemia, atrial fibrillation, and coronary artery disease, came into emergency room with complaints of chest pain and after he was evaluated in the ER, he was admitted to the hospital. Taj nunez see dictated H and P for more information. After the patient was admitted to the hospital, his [place] was ruled out by getting serial cardiac enzymes. This morning, cardiology consultation was obtained from Dr. Miranda. He evaluated the patient and I did talk to him after his evaluation and he inform ed me that from cardiology point of view, the patient is cleared for discharge and he will review off ice record and decide if the patient needs to have elective outpatient stress test. Depending on whe n he had one done, the patient was instructed to follow up with Dr. Miranda's office as Dr. Ruth dean informed him. Dr. Miranda suggested to start him on isosorbide mononitrate or Ranexa, so pres cription was sent for isosorbide mononitrate 30 mg daily and the patient will continue all his previo us home medications as he was taking prior to this admission. He will follow up at my office as per his scheduled appointment, which is beginning part of the next year. Final Diagnoses: 1.Chest pain. 2.Coronary artery disease. 3.Hypertension. 4.Hyperlipidemia. 5.Paroxysmal atrial fibrillation. 6.Chronic anticoagulation therapy. 7.Hypothyroidism. 8.Impaired fasting glucose. 9.Gastroesophageal reflux disease. 10.Benign prostatic hypertrophy. 11.Osteoarthritis, multiple sites. APRIL/MODL Voice ID: [id number] Report ID: [id number]
== END 2018-10-16 16:00 | disposition home or self-care (01) ==
LOC: ER 12:12 → ERHOLD 16:49 → 4TH 17:29
PROVIDERS: ADMIT Internal Medicine; ATTEND Internal Medicine
DX: R07.9 Chest pain, unspecified (principal); I25.10 Atherosclerotic heart disease of native coronary artery without angina pectoris; I10 Essential (primary) hypertension; E78.5 Hyperlipidemia, unspecified; I48.2 Chronic atrial fibrillation; E03.9 Hypothyroidism, unspecified; R73.01 Impaired fasting glucose; K21.9 Gastro-esophageal reflux disease without esophagitis; N40.0 Benign prostatic hyperplasia without lower urinary tract symptoms; M19.90 Unspecified osteoarthritis, unspecified site; G62.9 Polyneuropathy, unspecified; Z79.01 Long term (current) use of anticoagulants; Z95.1 Presence of aortocoronary bypass graft; Z88.0 Allergy status to penicillin
CPT/HCPCS: 36415; 71045; 80048 ×2; 80076; 83735; 83880; 84484 ×3; 85025 ×2; 85610; 93005 ×2; 99285; G0378 ×2

== ENCOUNTER 2020-09-05 19:43 | Emergency (ER) | payer OTHER ==
[2020-09-05 20:22] LABS: Absolute Lymphocytes (CBC) 1.9 K/uL (0.7-4.9); Basophils % 1.1 % (0-1.3); Hematocrit 42.7 % (39.6-49.0); Lymphocytes % 33.3 % (15.3-44.8); MPV 9.1 fL (7.6-11.3); RBC Red Blood Cell Count 4.76 M/uL (4.33-5.43)
[2020-09-05 20:23] LABS: Protime INR 0.95
[2020-09-05 20:50] LABS: ALT/SGPT 21 U/L (12-78); Albumin 3.7 g/dL (3.4-5.0); Alkaline Phosphatase 81 U/L (45-117); BUN Blood Urea Nitrogen 15 mg/dL (7-18); Bicarbonate 30 mmol/L (21-32); Bilirubin Direct < 0.1 mg/dL (0-0.2); Bilirubin Total 0.5 mg/dL (0.2-1.0); Glucose Level 108 mg/dL (74-106); NT PRO-BNP 283 pg/mL (<450); Protein, Total 7.8 g/dL (6.4-8.2); Sodium Level 138 mmol/L (136-145); Troponin (Emerg Dept Use Only) < 0.02 ng/mL (0.0-0.045)
[2020-09-05 20:51] LABS: AST/SGOT 27 U/L (15-37); Magnesium 2.3 mg/dL (1.8-2.4); Potassium 4.2 mmol/L (3.5-5.1)
--- NOTE | 2020-09-05 20:51 | RAD REPORT ---
EXAM DESCRIPTION: RAD - Chest Single View - 09/05/2020 8:37 pm CLINICAL HISTORY: CHEST PAIN COMPARISON: Portable May 2019 TECHNIQUE: AP portable chest image was obtained 09/05/2020 8:37 pm . FINDINGS: Lung volumes are low. No peripheral mass or consolidation. Hazy left base opacification is primarily portable technique and pericardial fat pad. Minimal left base infiltrate cannot be exclude d given a left chest pain history. Heart and vasculature are normal. No measurable pleural effusion a nd no pneumothorax. No acute bony abnormality seen. No acute aortic findings. Sternotomy wires are in place. Patient does have dense aortic calcification. IMPRESSION: Limited portable examination shows hazy left base opacification. In a patient with history of left-sided chest pain, early infiltrate while not suspected, cannot be e xcluded.
--- NOTE | 2020-09-05 22:44 | ER ---
Nurse's Notes [facility] Name: Thomas Glass Jr Age: 84 yrs Sex: Male : 1935 Arrival Date: 09/05/2020 Time: 19:44 Bed 19 Private MD: Diagnosis: Chest pain. Uncontrolled hypertension Presentation: 09/05 20:02 Chief complaint: EMS states: "pt called us reporting chest pain and high blood jd3 pressure. he took his Clonidine which took care of his blood pressure but he was still reporting that dull left sided chest pain.". Coronavirus screen: At this time, the client does not indicate any symptoms associated with coronavirus-19. Ebola Screen: Patient negative for fever greater than or equal to 101.5 degrees Fahrenheit, and additional compatible Ebola Virus Disease symptoms. Initial Sepsis Screen: Does the patient meet any 2 criteria? No. Patient's initial sepsis screen is negative. Does the patient have a suspected source of infection? No. Patient's initial sepsis screen is negative. Risk Assessment: Do you want to hurt yourself or someone else? Patient reports no desire to harm self or others. Onset of symptoms was September 05, 2020. 20:02 Method Of Arrival: EMS: [facility] jd3 20:02 Acuity: NI 3 jd3 Historical: - Allergies: 20:04 Ciprofloxacin HCl; jd3 20:04 Iodinated Contrast Media - IV Dye; jd3 20:04 PENICILLINS; jd3 - PMHx: 20:04 Hypertension; High Cholesterol; Hypothyroidism; Cholelithiasis; GERD; ATHEROSCLEROSIS; jd3 BPH; - PSHx: 20:04 Cholecystectomy; Appendectomy; Tonsillectomy; CABG; Spinal Surgery; triple bypass; jd3 - Immunization history:: Adult Immunizations up to date. - Social history:: Smoking status: Patient denies any tobacco usage or history of. Screenin:15 Abuse screen: Denies threats or abuse. Denies injuries from another. Nutritional rr5 screening: No deficits noted. Tuberculosis screening: No symptoms or risk factors identified. Fall Risk IV access (20 points). Gait- Impaired (20 pts.). Mental Status- Oriented to own ability (0 pts). Total Arriola Fall Scale indicates Low Risk Score (25-44 pts). Fall prevention measures have been instituted. Side Rails Up X 2 Placed close to Nursing Station Frequent Obs/Assesments occuring As available Patient and Family Educated on Fall Prevention Program and strategies. Assessment: 20:10 General: Appears in no apparent distress. comfortable, Behavior is calm, cooperative, rr5 appropriate for age. Pain: Complains of pain in chest Pain does not radiate. Pain currently is 3 out of 10 on a pain scale. Quality of pain is described as pressure, Pain began gradually, Is intermittent. Neuro: Level of Consciousness is awake, alert, obeys commands, Oriented to person, place, time, situation. Cardiovascular: Reports chest pain, high BP Capillary refill < 3 seconds Patient's skin is warm and dry. Respiratory: Airway is patent Respiratory effort is even, unlabored, Respiratory pattern is regular, symmetrical. GI: No signs and/or symptoms were reported involving the gastrointestinal system. : No signs and/or symptoms were reported regarding the genitourinary system. EENT: No signs and/or symptoms were reported regarding the EENT system. Derm: Skin is intact, is healthy with good turgor, Skin temperature is warm. Musculoskeletal: Circulation, motion, and sensation intact. Capillary refill < 3 seconds. 21:45 Reassessment: Patient appears in no apparent distress at this time. Patient is alert, rr5 oriented x 3, equal unlabored respirations, skin warm/dry/pink. reassessment done by ED provider with order made and carriedout. 22:55 Reassessment: Patient appears in no apparent distress at this time. Patient is alert, rr5 oriented x 3, equal unlabored respirations, skin warm/dry/pink. discharge instruction given and explained without complaints made. Vital Signs: 20:04 BP 167 / 81; Pulse 65; Resp 17 S; Pulse Ox 97% on R/A; jd3 21:00 BP 155 / 62; Pulse 69; Resp 17; Pulse Ox 98% ; rr5 21:45 BP 146 / 72; Pulse 64; Resp 19; Temp 98.4; Pulse Ox 99% ; rr5 22:55 BP 135 / 62; Pulse 60; Resp 16; Temp 98.5; Pulse Ox 99% ; rr5 ED Course: 19:44 Patient arrived in ED. am2 20:03 Mau Chakraborty, RN is Primary Nurse. rr5 20:03 Triage completed. jd3 20:05 Arm band placed on. EKG completed in triage. Results shown to MD. cheryl 20:09 Laurent Hernandez MD is Attending Physician. pkl 20:10 Patient has correct armband on for positive identification. Placed in gown. Bed in low rr5 position. Call light in reach. Side rails up X2. awake overnight monitor on. Pulse ox on. NIBP on. 20:10 Maintain EMS IV. Dressing intact. Site clean \\T\\ dry. Gauge \\T\\ site: G20 ight hand. rr 5 20:15 EKG done, by ED staff, reviewed by Laurent Hernandez MD. rr5 20:33 Patient maintains SpO2 saturation greater than 95% on room air. rr5 20:37 XRAY Chest (1 view) In Process Unspecified. EDMS 23:00 No provider procedures requiring assistance completed. IV discontinued, intact, rr5 bleeding controlled, No redness/swelling at site. Pressure dressing applied. Administered Medications: No medications were administered Outcome: 22:43 Discharge ordered by . pkl 22:55 Discharged to home via wheelchair. rr5 22:55 Condition: stable 22:55 Discharge instructions given to patient, Instructed on discharge instructions, follow up and referral plans. Demonstrated understanding of instructions, follow-up care. 23:00 Patient left the ED. rr5 Signatures: Dispatcher [employer] EDMS Laurent Hernandez MD MD pkKelly Argueta Jonathon RN RN jMau West RN RN rr5
--- NOTE | 2020-09-05 22:44 | EDPHYS ---
Physician Documentation [facility] Name: Thomas Glass Jr Age: 84 yrs Sex: Male : 1935 Arrival Date: 09/05/2020 Time: 19:44 Bed 19 Private MD: ED Physician Laurent Hernandez HPI: 09/05 20:23 This 84 yrs old Male presents to ER via EMS with complaints of High Blood pkl Pressure, Chest Pressure. 20:23 The patient or guardian reports chest pain that is located primarily in the left upper pkl chest. Onset: just prior to arrival, 4 hour(s) ago. The pain does not radiate. Associated signs and symptoms: Pertinent positives: Elevated blood pressure. The chest pain is described as a pressure. Patient said he took a Clonidine 0.1 mg earlier and noticed his BP is coming down. Historical: - Allergies: 20:04 Ciprofloxacin HCl; jd3 20:04 Iodinated Contrast Media - IV Dye; jd3 20:04 PENICILLINS; jd3 - PMHx: 20:04 Hypertension; High Cholesterol; Hypothyroidism; Cholelithiasis; GERD; ATHEROSCLEROSIS; jd3 BPH; - PSHx: 20:04 Cholecystectomy; Appendectomy; Tonsillectomy; CABG; Spinal Surgery; triple bypass; jd3 - Immunization history:: Adult Immunizations up to date. - Social history:: Smoking status: Patient denies any tobacco usage or history of. ROS: 20:23 Eyes: Negative for injury, pain, redness, and discharge, ENT: Negative for injury, pkl pain, and discharge, Neck: Negative for injury, pain, and swelling. 20:23 Cardiovascular: Positive for chest pain, of the left upper chest. 20:23 Respiratory: Negative for cough, shortness of breath. 20:23 Abdomen/GI: Negative for abdominal pain, nausea, vomiting, and diarrhea. 20:23 Back: Negative for acute changes. 20:23 : Negative for injury or acute deformity. 20:23 MS/extremity: Negative for acute changes. 20:23 Skin: Negative for rash. 20:23 Neuro: Negative for altered mental status. Exam: 20:23 Head/Face: Normocephalic, atraumatic. Eyes: Pupils equal round and reactive to light, pkl extra-ocular motions intact. Lids and lashes normal. Conjunctiva and sclera are non-icteric and not injected. Cornea within normal limits. Periorbital areas with no swelling, redness, or edema. ENT: Nares patent. No nasal discharge, no septal abnormalities noted. Tympanic membranes are normal and external auditory canals are clear. Oropharynx with no redness, swelling, or masses, exudates, or evidence of obstruction, uvula midline. Mucous membranes moist. Neck: Trachea midline, no thyromegaly or masses palpated, and no cervical lymphadenopathy. Supple, full range of motion without nuchal rigidity, or vertebral point tenderness. No Meningismus. Chest/axilla: Normal chest wall appearance and motion. Nontender with no deformity. No lesions are appreciated. Cardiovascular: Regular rate and rhythm with a normal S1 and S2. No gallops, murmurs, or rubs. Normal PMI, no JVD. No pulse deficits. Respiratory: Lungs have equal breath sounds bilaterally, clear to auscultation and percussion. No rales, rhonchi or wheezes noted. No increased work of breathing, no retractions or nasal flaring. Abdomen/GI: Soft, non-tender, with normal bowel sounds. No distension or tympany. No guarding or rebound. No evidence of tenderness throughout. Back: No spinal tenderness. No costovertebral tenderness. Full range of motion. Skin: Warm, dry with normal turgor. Normal color with no rashes, no lesions, and no evidence of cellulitis. MS/ Extremity: Pulses equal, no cyanosis. Neurovascular intact. Full, normal range of motion. Neuro: Awake and alert, GCS 15, oriented to person, place, time, and situation. Cranial nerves II-XII grossly intact. Motor strength 5/5 in all extremities. Sensory grossly intact. Cerebellar exam normal. Normal gait. Vital Signs: 20:04 BP 167 / 81; Pulse 65; Resp 17 S; Pulse Ox 97% on R/A; jd3 21:00 BP 155 / 62; Pulse 69; Resp 17; Pulse Ox 98% ; rr5 21:45 BP 146 / 72; Pulse 64; Resp 19; Temp 98.4; Pulse Ox 99% ; rr5 22:55 BP 135 / 62; Pulse 60; Resp 16; Temp 98.5; Pulse Ox 99% ; rr5 MDM: 20:09 Patient medically screened. pkl 22:38 Data reviewed: vital signs, nurses notes, lab test result(s), EKG, radiologic studies, pkl plain films. ED course: Patient feeling better. BP is now normal. Chest pain has resolved. Patient not in any distress. Discussed lab, EKG and X "rays results with patient. Advised to follow up with PCP in 2 to 3 days. Patient understood instructions. 09/05 20:04 Order name: Basic Metabolic Panel; Complete Time: 21:42 rr5 09/05 20:04 Order name: CBC with Diff; Complete Time: 21:42 rr5 09/05 20:04 Order name: LFT's; Complete Time: 21:42 rr5 09/05 20:04 Order name: Magnesium; Complete Time: 21:42 rr5 09/05 20:04 Order name: NT PRO-BNP; Complete Time: 21:42 rr5 09/05 20:04 Order name: PT-INR; Complete Time: 21:42 rr5 09/05 20:04 Order name: Troponin (emerg Dept Use Only); Complete Time: 21:42 rr5 09/05 20:04 Order name: XRAY Chest (1 view); Complete Time: 21:42 rr5 09/05 20:04 Order name: EKG; Complete Time: 20:05 rr5 09/05 20:04 Order name: Cardiac monitoring; Complete Time: 20:22 rr5 09/05 20:04 Order name: EKG - Nurse/Tech; Complete Time: 20:22 rr5 09/05 20:04 Order name: IV Saline Lock; Complete Time: 20:23 rr5 09/05 21:47 Order name: EKG; Complete Time: 21:47 pkl 09/05 21:47 Order name: Troponin (emerg Dept Use Only); Complete Time: 22:44 pkl 09/05 20:04 Order name: Labs collected and sent; Complete Time: 20:23 rr5 09/05 20:04 Order name: O2 Per Protocol; Complete Time: 20:23 rr5 09/05 20:04 Order name: O2 Sat Monitoring; Complete Time: 20:23 rr5 Administered Medications: No medications were administered Disposition: 09/05/20 22:43 Discharged to Home. Impression: Chest pain. Uncontrolled hypertension. - Condition is Stable. - Medication Reconciliation Form, Thank You Letter, Antibiotic Education, Prescription Opioid Use form. - Follow up: Private Physician; When: 2 - 3 days; Reason: Re-evaluation by your physician. - Problem is new. - Symptoms have improved. Signatures: Dispatcher [employer] Laurent Miller MD MD pkKip Whitt RN RN jd3 Mau Chakraborty RN RN rr5 Corrections: (The following items were deleted from the chart) 23:00 22:43 09/05/2020 22:43 Discharged to Home. Impression: Chest pain. Uncontrolled rr5 hypertension. Condition is Stable. Forms are Medication Reconciliation Form, Thank You Letter, Antibiotic Education, Prescription Opioid Use. Follow up: Private Physician; When: 2 - 3 days; Reason: Re-evaluation by your physician. Problem is new. Symptoms have improved. pkl
[2020-09-06 07:53] VITALS: BP 146/72; TEMP 98.4; O2SAT 99
--- NOTE | 2020-09-06 12:05 | EKG ---
Test Date: 2020-09-05 Test Time: 19:49:31 Lab Clerk: RR MEASUREMENT RESULTS: Intervals: Rate: 63 IN: 212 QRSD: 82 QT: 446 QTc: 456 Basile: P: 48 IN: 212 QRS: 53 T: 34 INTERPRETIVE STATEMENTS: Sinus rhythm with 1st degree AV block Nonspecific T wave abnormality Abnormal ECG Compared to ECG 06/10/2019 07:47:50 Sinus bradycardia no longer present Prolonged QT interval no longer present T-wave abnormality still present Electronically Signed On 09-06-20 12:03:11 [employer]GER [employer] by Toni Miranda
--- NOTE | 2020-09-06 12:05 | EKG ---
Test Date: 2020-09-05 Test Time: 21:50:22 Hide Paster: RR MEASUREMENT RESULTS: Intervals: Rate: 59 LA: 206 QRSD: 86 QT: 470 QTc: 465 [place]: P: 31 LA: 206 QRS: 35 T: 73 INTERPRETIVE STATEMENTS: Sinus bradycardia Cannot rule out Anterior infarct, age undetermined Abnormal ECG Compared to ECG 09/05/2020 19:49:31 Myocardial infarct finding now present Sinus rhythm no longer present First degree AV block no longer present T-wave abnormality no longer present Electronically Signed On 09-06-20 12:03:09 SECURITY [employer] by Toni Miranda
== END 2020-09-05 23:00 | disposition home or self-care (01) ==
LOC: ER 19:43
DX: I10 Essential (primary) hypertension (principal); Z88.0 Allergy status to penicillin; Z88.1 Allergy status to other antibiotic agents; Z95.1 Presence of aortocoronary bypass graft; Z91.041 Radiographic dye allergy status
CPT/HCPCS: 36415; 71045; 80048; 80076; 83735; 83880; 84484; 85025; 85610; 93005; 99285

== ENCOUNTER 2020-11-29 10:34 | Observation (INO) | payer OTHER ==
--- NOTE | 2020-11-29 11:18 | RAD REPORT ---
EXAM DESCRIPTION: RAD - Chest Single View - 11/29/2020 11:07 am CLINICAL HISTORY: CHEST PAIN Chest pain. COMPARISON: Chest Single View dated 09/05/2020; Chest Single View dated 06/09/2019; Chest Single View dated 10/15/2018; Chest Pa And Lat (2 Views) dated 10/06/2018 FINDINGS: Portable technique limits examination quality. Mild interstitial pulmonary edema. The heart is mildly prominent size with aortic atherosclerosis. St ernotomy wires present. IMPRESSION: Mild CHF.
[2020-11-29 11:39] LABS: Absolute Lymphocytes (CBC) 1.5 K/uL (0.7-4.9); Hematocrit 40.7 % (39.6-49.0); Lymphocytes % 29.5 % (15.3-44.8); MPV 9.4 fL (7.6-11.3); RBC Red Blood Cell Count 4.46 M/uL (4.33-5.43)
[2020-11-29 11:45] LABS: Protime INR 1.27
[2020-11-29 11:54] LABS: ALT/SGPT 21 U/L (12-78); AST/SGOT 14 U/L (15-37); Albumin 3.4 g/dL (3.4-5.0); Alkaline Phosphatase 64 U/L (45-117); BUN Blood Urea Nitrogen 14 mg/dL (7-18); Bicarbonate 29 mmol/L (21-32); Bilirubin Direct 0.1 mg/dL (0-0.2); Bilirubin Total 0.4 mg/dL (0.2-1.0); Glucose Level 103 mg/dL (74-106); Magnesium 2.3 mg/dL (1.8-2.4); NT PRO-BNP 287 pg/mL (<450); Potassium 4.7 mmol/L (3.5-5.1); Protein, Total 6.9 g/dL (6.4-8.2); Sodium Level 142 mmol/L (136-145); Troponin (Emerg Dept Use Only) < 0.02 ng/mL (0.0-0.045)
[2020-11-29] MEDS ORDERED: NA CHLORIDE 0.9% 500 ML ONE (12:23)
[2020-11-29] MEDS ORDERED: FUROSEMIDE 20 MG/ 2ML VIAL ONE (13:02)
--- NOTE | 2020-11-29 13:36 | EDPHYS ---
Physician Documentation [facility] Name: Thomas Glass Jr Age: 85 yrs Sex: Male : 1935 Arrival Date: 11/29/2020 Time: 10:47 Bed 13 Private MD: ED Physician Alice Wiggins HPI: 11/29 11:00 This 85 yrs old Male presents to ER via EMS with complaints of Chest Pain > cp 30 y/o. 11:00 The patient or guardian reports chest pain that is located primarily in the anterior cp chest wall, left. 11:00 Onset: 1 hour(s) ago. cp 11:00 The pain does not radiate. Associated signs and symptoms: Pertinent negatives: cp abdominal pain, diaphoresis, dizziness, lower extremity pain, lower extremity swelling, palpitations, shortness of breath, syncope. The chest pain is described as crushing. Duration: The patient or guardian reports a single episode, that is still ongoing, but improving. Modifying factors: The symptoms are alleviated by ASA, 325mg NTG, X2. Severity of pain: in the emergency department the pain has improved markedly. EMS care prior to arrival includes: aspirin, nitroglycerin, x 2 with marked improvement. Historical: - Allergies: 10:58 Ciprofloxacin HCl; ca1 10:58 Iodinated Contrast Media - IV Dye; ca1 10:58 PENICILLINS; ca1 - PMHx: 10:58 ATHEROSCLEROSIS; BPH; Cholelithiasis; GERD; High Cholesterol; Hypertension; ca1 Hypothyroidism; - PSHx: 10:58 Cholecystectomy; Appendectomy; Tonsillectomy; CABG; Spinal Surgery; triple bypass; ca1 - Immunization history:: Pneumococcal vaccine is up to date, Flu vaccine is up to date. Covid 1st shot. - Social history:: Smoking status: Patient denies any tobacco usage or history of. ROS: 11:05 Constitutional: Negative for body aches, chills, fever, poor PO intake. cp 11:05 Eyes: Negative for injury, pain, redness, and discharge. cp 11:05 ENT: Negative for ear pain, sore throat, difficulty swallowing, difficulty handling secretions. 11:05 Neck: Negative for pain with movement, pain at rest, stiffness. 11:05 Cardiovascular: Positive for chest pain, Negative for edema, palpitations. 11:05 Respiratory: Negative for cough, shortness of breath, wheezing. 11:05 Abdomen/GI: Negative for abdominal pain, nausea, vomiting, and diarrhea. 11:05 Back: Negative for radiated pain. 11:05 Neuro: Negative for altered mental status, dizziness, headache, numbness, syncope, weakness. 11:05 All other systems are negative. Exam: 10:50 ECG was reviewed by the Attending Physician. cp 11:10 Head/Face: Normocephalic, atraumatic. cp 11:10 Constitutional: The patient appears in no acute distress, alert, awake, non-diaphoretic, non-toxic, well developed, well nourished. 11:10 Eyes: Periorbital structures: appear normal, Conjunctiva: normal, no exudate, no injection, Sclera: no appreciated abnormality, Lids and lashes: appear normal, bilaterally. 11:10 ENT: External ear(s): are unremarkable, Nose: is normal, Mouth: Lips: moist, Oral mucosa: pink and intact, moist, Posterior pharynx: Airway: no evidence of obstruction, patent. 11:10 Neck: ROM/movement: is normal, is supple, without pain, no range of motions limitations, no nuchal rigidity. 11:10 Chest/axilla: Inspection: normal, Palpation: is normal, no crepitus, no tenderness. 11:10 Cardiovascular: Rate: bradycardic, Rhythm: regular, Pulses: Pulses are 2+ in right radial artery and left radial artery. Edema: is not appreciated, JVD: is not appreciated. 11:10 Respiratory: the patient does not display signs of respiratory distress, Respirations: normal, no use of accessory muscles, no retractions, labored breathing, is not present, Breath sounds: are clear throughout, no decreased breath sounds, no stridor, no wheezing. 11:10 Abdomen/GI: Inspection: abdomen appears normal, Bowel sounds: active, all quadrants, Palpation: abdomen is soft and non-tender, in all quadrants, rebound tenderness, is not appreciated, voluntary guarding, is not appreciated, involuntary guarding, is not appreciated. 11:10 Back: pain, is absent, ROM is normal. 11:10 Skin: no rash present. 11:10 Neuro: Orientation: to person, place \T\ time. Mentation: is normal, Cerebellar function: is grossly normal, Motor: moves all fours, strength is normal, Sensation: is normal. Vital Signs: 10:51 BP 124 / 63; Pulse 56; Resp 15 S; Temp 98.2(O); Pulse Ox 97% on R/A; Weight 92.99 kg ca1 (R); Height 5 ft. 8 in. (172.72 cm) (R); Pain 3/10; 11:48 BP 91 / 55; Pulse 51; Resp 14 S; Pulse Ox 97% on R/A; ca1 12:30 BP 144 / 69; Pulse 53; Resp 16 S; Pulse Ox 98% on R/A; ca1 13:50 BP 95 / 63; Pulse 49; Resp 15 S; Pulse Ox 95% on R/A; ca1 14:44 BP 108 / 65; Pulse 47; Resp 15 S; Pulse Ox 95% on R/A; ca1 15:50 BP 146 / 72; Pulse 52; Resp 16 S; Pulse Ox 96% on R/A; ca1 16:57 BP 143 / 72; Pulse 61; Resp 15 S; Pulse Ox 99% on R/A; ca1 10:51 Body Mass Index 31.17 (92.99 kg, 172.72 cm) ca1 MDM: 11:02 Patient medically screened. cp 11:40 Differential diagnosis: abnormal EKG, acute myocardial infarction, chest wall pain, cp pleurisy, pneumonia, pneumothorax, pulmonary embolus, stable angina, thoracic aortic disection, unstable angina. 13:21 Physician consultation: A Reshma MCWILLIAMS was called at 13:21, will call back to discuss cp patient. 13:30 Test interpretation: by ED physician or midlevel provider: ECG, plain radiologic cp studies. 13:32 The patient was not given aspirin in the Emergency Department. Administered by EMS. cp Data reviewed: vital signs, nurses notes, lab test result(s), radiologic studies, plain films, and as a result, I will admit patient. Physician consultation: Tracy Justice MD was contacted at 13:33, regarding admission, to the telemetry unit. patient's condition, would like consultation with Dr. Miranda. 11/29 10:52 Order name: Basic Metabolic Panel cp 11/29 10:52 Order name: CBC with Diff cp 11/29 10:52 Order name: LFT's cp 11/29 10:52 Order name: Magnesium cp 11/29 10:52 Order name: NT PRO-BNP cp 11/29 10:52 Order name: PT-INR cp 11/29 10:52 Order name: Troponin (emerg Dept Use Only) cp 11/29 11:45 Order name: CBC with Automated Diff; Complete Time: 12:06 EDMS 11/29 11:48 Order name: Protime (+INR); Complete Time: 12:06 EDMS 11/29 11:55 Order name: Basic Metabolic Panel; Complete Time: 12:06 EDMS 11/29 11:55 Order name: Liver (Hepatic) Function; Complete Time: 12:06 EDMS 11/29 11:55 Order name: Troponin (Emerg Dept Use Only); Complete Time: 12:06 EDMS 11/29 11:55 Order name: NT PRO-BNP; Complete Time: 12:06 EDMS 11/29 11:55 Order name: Magnesium; Complete Time: 12:06 EDMS 11/29 10:52 Order name: XRAY Chest (1 view) 11/29 10:52 Order name: EKG; Complete Time: 11:42 11/29 11:44 Order name: RAD; Complete Time: 12:06 EDMS 11/29 13:14 Order name: Urine Dipstick--Ancillary (enter results) bd 11/29 13:57 Order name: SARS-COV-2 RT PCR EDDC 11/29 14:01 Order name: Basic Metabolic Panel EDDC 11/29 14:01 Order name: Basic Metabolic Panel EDDC 11/29 14:01 Order name: CBC with Automated Diff EDDC 11/29 14:01 Order name: CBC with Automated Diff EDDC 11/29 14:01 Order name: Troponin I EDDC 11/29 14:01 Order name: Troponin I EDDC 11/29 14:01 Order name: Troponin I EDDC 11/29 10:52 Order name: Cardiac monitoring; Complete Time: 11:01 11/29 10:52 Order name: EKG - Nurse/Tech; Complete Time: 11:01 11/29 10:52 Order name: IV Saline Lock; Complete Time: 11: 11/29 10:52 Order name: Labs collected and sent; Complete Time: 11:30 11/29 10:52 Order name: O2 Per Protocol; Complete Time: 11: 11/29 10:52 Order name: O2 Sat Monitoring; Complete Time: 11: 11/29 12:08 Order name: Urine Dipstick-Ancillary (obtain specimen); Complete Time: 13:12 cp 11/29 14:01 Order name: CONS Physician Consult EDDC 11/29 14:01 Order name: Regular EDMS 11/29 14:01 Order name: EKG Electrocardiogram EDMS 11/29 14:01 Order name: EKG Electrocardiogram EDMS 11/29 14:01 Order name: EKG Electrocardiogram EDDC 11/29 14:01 Order name: EKG Electrocardiogram EDDC EC:50 Rate is 56 beats/min. Rhythm is regular. RI interval is prolonged at 212 msec. QRS cp interval is normal. QT interval is normal. Interpreted by me. Reviewed by me. Administered Medications: 12:12 Not Given (Hemodynamic Parameters): morphine 2 mg IVP once; RASS on ADMIN: Combtv4, ca1 Very Agttd3, Agttd2, Rstlss1, AlertClm0, Drwsy-1, Lt Sdtn-2, Mod Sdtn-3, Dp Sdtn-4, UnArsble-5 12:12 Drug: NS 0.9% 500 ml Route: IV; Rate: bolus; Site: left forearm; ca1 13:00 Follow up: Response: No adverse reaction; IV Status: Completed infusion; IV Intake: ca1 500ml 12:40 Drug: Lasix 20 mg Route: IVP; Site: left forearm; ca1 16:00 Follow up: Urine output 1500 ml; Response: No adverse reaction ca1 Disposition: 18:22 Co-signature as Attending Physician, Alice Wiggins MD. ma2 Disposition: 11/29/20 13:35 Hospitalization ordered by Tracy Justice for Observation. Preliminary diagnosis are Chest pain, unspecified, Unspecified combined systolic (congestive) and diastolic (congestive) heart failure. - Bed requested for Telemetry/MedSurg (observation). - Status is Observation. ca1 - Condition is Stable. - Problem is new. - Symptoms have improved. Signatures: Dispatcher [employer] EDDC Cordelia See RN RN Buddy Garvey PA PA cp Alzahri, Mohammad, MD MD ma2 Acob, Cheryl, RN RN ca1 Corrections: (The following items were deleted from the chart) 12:59 12:08 CORONAVIRUS+MR.LAB.BRZ ordered. EDDC EDMS 16:33 13:35 Hospitalization Ordered by A Reshma MCWILLIAMS for Observation. Preliminary diagnosis is dw Chest pain, unspecified; Unspecified combined systolic (congestive) and diastolic (congestive) heart failure. Bed requested for Telemetry/MedSurg (observation). Status is Observation. Condition is Stable. Problem is new. Symptoms have improved. cp 17:19 16:33 11/29/2020 13:35 Hospitalization Ordered by A Reshma MCWILLIAMS for Observation. ca1 Preliminary diagnosis is Chest pain, unspecified; Unspecified combined systolic (congestive) and diastolic (congestive) heart failure. Bed requested for Telemetry/MedSurg (observation). Status is Observation. Condition is Stable. Problem is new. Symptoms have improved. dw
--- NOTE | 2020-11-29 13:36 | ER ---
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 Pain described as crushing on ca1 the upper L chest. Given ASA 324, Nitro SL x 2. IV G20 RAC. EKG12L NSR with 1st degree heart block. HX of Double CABG 5 years ago. BGL 85. Negative Respi s/s. Negative fever. Coronavirus screen: Client denies travel out of the [place] in the last 14 days. At this time, the client does not indicate any symptoms associated with coronavirus-19. Ebola Screen: Patient negative for fever greater than or equal to 101.5 degrees Fahrenheit, and additional compatible Ebola Virus Disease symptoms Patient denies exposure to infectious person. Patient denies travel to an Ebola-affected area in the 21 days before illness onset. No symptoms or risks identified at this time. Initial Sepsis Screen: Does the patient meet any 2 criteria? No. Patient's initial sepsis screen is negative. Does the patient have a suspected source of infection? No. Patient's initial sepsis screen is negative. Risk Assessment: Do you want to hurt yourself or someone else? Patient reports no desire to harm self or others. Onset of symptoms was November 29, 2020 at 10:00. 10:51 Acuity: NI 3 ca1 10:51 Method Of Arrival: EMS: [facility] ca1 Triage Assessment: 10:58 General: Appears in no apparent distress. comfortable, Behavior is calm, cooperative, ca1 appropriate for age. Pain: Complains of pain in anterior aspect of left upper chest Pain does not radiate. Pain currently is 3 out of 10 on a pain scale. Quality of pain is described as crushing, Pain began 1 hour ago. Is continuous. EENT: No signs and/or symptoms were reported regarding the EENT system. Neuro: Level of Consciousness is awake, alert, obeys commands, Oriented to person, place, time, situation. Cardiovascular: Heart tones S1 S2 present Capillary refill < 3 seconds Patient's skin is warm and dry. Rhythm is sinus rhythm with 1st degree heart block. Respiratory: Airway is patent Respiratory effort is even, unlabored, Respiratory pattern is regular, symmetrical, Breath sounds are clear bilaterally. GI: Abdomen is round non-distended, Bowel sounds present X 4 quads. Abd is soft and non tender X 4 quads. : No signs and/or symptoms were reported regarding the genitourinary system. Derm: Skin is intact, is healthy with good turgor, Skin is pink, warm \T\ dry. Musculoskeletal: Circulation, motion, and sensation intact. Capillary refill < 3 seconds. Historical: - Allergies: 10:58 Ciprofloxacin HCl; ca1 10:58 Iodinated Contrast Media - IV Dye; ca1 10:58 PENICILLINS; ca1 - PMHx: 10:58 ATHEROSCLEROSIS; BPH; Cholelithiasis; GERD; High Cholesterol; Hypertension; ca1 Hypothyroidism; - PSHx: 10:58 Cholecystectomy; Appendectomy; Tonsillectomy; CABG; Spinal Surgery; triple bypass; ca1 - Immunization history:: Pneumococcal vaccine is up to date, Flu vaccine is up to date. Covid 1st shot. - Social history:: Smoking status: Patient denies any tobacco usage or history of. Screenin:00 Abuse screen: Denies threats or abuse. Denies injuries from another. Nutritional ca1 screening: No deficits noted. Tuberculosis screening: No symptoms or risk factors identified. Fall Risk IV access (20 points). Assessment: 11:00 Reassessment: see triage notes. Pain: Complains of pain in anterior aspect of left ca1 upper chest Pain does not radiate. Pain currently is 3 out of 10 on a pain scale. Quality of pain is described as crushing, Pain began 1 hour ago. Is continuous. 11:48 Reassessment: Patient appears in no apparent distress at this time. Patient and/or ca1 family updated on plan of care and expected duration. Pain level reassessed. Patient is alert, oriented x 3, equal unlabored respirations, skin warm/dry/pink. Patient states feeling better. Patient states symptoms have improved. 12:49 Reassessment: Patient appears in no apparent distress at this time. Patient and/or ca1 family updated on plan of care and expected duration. Pain level reassessed. Patient is alert, oriented x 3, equal unlabored respirations, skin warm/dry/pink. 13:50 Reassessment: Patient appears in no apparent distress at this time. Patient and/or ca1 family updated on plan of care and expected duration. Pain level reassessed. Patient is alert, oriented x 3, equal unlabored respirations, skin warm/dry/pink. 14:52 Reassessment: Patient appears in no apparent distress at this time. Patient and/or ca1 family updated on plan of care and expected duration. Pain level reassessed. Patient is alert, oriented x 3, equal unlabored respirations, skin warm/dry/pink. 15:50 Reassessment: Patient appears in no apparent distress at this time. Patient and/or ca1 family updated on plan of care and expected duration. Pain level reassessed. Patient is alert, oriented x 3, equal unlabored respirations, skin warm/dry/pink. 16:57 Reassessment: Patient appears in no apparent distress at this time. Patient and/or ca1 family updated on plan of care and expected duration. Pain level reassessed. Patient is alert, oriented x 3, equal unlabored respirations, skin warm/dry/pink. Vital Signs: 10:51 BP 124 / 63; Pulse 56; Resp 15 S; Temp 98.2(O); Pulse Ox 97% on R/A; Weight 92.99 kg ca1 (R); Height 5 ft. 8 in. (172.72 cm) (R); Pain 3/10; 11:48 BP 91 / 55; Pulse 51; Resp 14 S; Pulse Ox 97% on R/A; ca1 12:30 BP 144 / 69; Pulse 53; Resp 16 S; Pulse Ox 98% on R/A; ca1 13:50 BP 95 / 63; Pulse 49; Resp 15 S; Pulse Ox 95% on R/A; ca1 14:44 BP 108 / 65; Pulse 47; Resp 15 S; Pulse Ox 95% on R/A; ca1 15:50 BP 146 / 72; Pulse 52; Resp 16 S; Pulse Ox 96% on R/A; ca1 16:57 BP 143 / 72; Pulse 61; Resp 15 S; Pulse Ox 99% on R/A; ca1 10:51 Body Mass Index 31.17 (92.99 kg, 172.72 cm) ca1 ED Course: 10:47 Patient arrived in ED. ca1 10:52 Buddy Mcmullen PA is PHCP. cp 10:52 Alice Wiggins MD is Attending Physician. cp 10:57 Triage completed. ca1 10:58 Arm band placed on right wrist. ca1 11:00 Patient has correct armband on for positive identification. Placed in gown. Bed in low ca1 position. Call light in reach. Side rails up X2. monitoring engineer on. Pulse ox on. NIBP on. Warm blanket given. 11:01 Cande De La Garza RN is Primary Nurse. ca1 11:01 No provider procedures requiring assistance completed. Patient maintains SpO2 ca1 saturation greater than 95% on room air. 11:15 IV discontinued, intact, bleeding controlled, No redness/swelling at site. Pressure ca1 dressing applied, EMS IV not flushing and drawing blood. 11:31 Initial lab(s) drawn, by ED staff, sent to lab. Inserted saline lock: 20 gauge in left ca1 forearm, using aseptic technique. 13:34 Tracy Justice MD is Hospitalizing Provider. cp Administered Medications: 12:12 Not Given (Hemodynamic Parameters): morphine 2 mg IVP once; RASS on ADMIN: Combtv4, ca1 Very Agttd3, Agttd2, Rstlss1, AlertClm0, Drwsy-1, Lt Sdtn-2, Mod Sdtn-3, Dp Sdtn-4, UnArsble-5 12:12 Drug: NS 0.9% 500 ml Route: IV; Rate: bolus; Site: left forearm; ca1 13:00 Follow up: Response: No adverse reaction; IV Status: Completed infusion; IV Intake: ca1 500ml 12:40 Drug: Lasix 20 mg Route: IVP; Site: left forearm; ca1 16:00 Follow up: Urine output 1500 ml; Response: No adverse reaction ca1 Intake: 13:00 IV: 500ml; Total: 500ml. ca1 Output: 16:00 Urine: 1500ml; Total: 1500ml. ca1 Outcome: 13:35 Decision to Hospitalize by Provider. cp 16:58 Admitted to Med/surg accompanied by tech, via wheelchair, room 224. ca1 16:58 Condition: stable 16:58 Instructed on the need for admit. 17:19 Patient left the ED. ca1 Signatures: Buddy Mcmullen PA PA cp Cande De La Garza RN RN ca1 Corrections: (The following items were deleted from the chart) 11:32 11:01 Maintain EMS IV. Dressing intact. Good blood return noted. Site clean \T\ dry. ca1 Gauge \T\ site: 20G RAC. ca1
[2020-11-29 13:57] LABS: Urine Blood NEGATIVE (NEG); Urine Glucose NEGATIVE (NEG); Urine Protein NEGATIVE (NEG)
[2020-11-29] MEDS ORDERED: ONDANSETRON 4 MG/2 ML VIAL IV PRN (13:58)
[2020-11-29] MEDS ORDERED: MORPHINE 2 MG/ML SYR IV PRN (13:58)
[2020-11-29 17:40] VITALS: BMI 32.8
[2020-11-30 05:38] LABS: Absolute Lymphocytes (CBC) 1.6 K/uL (0.7-4.9); Basophils % 1.1 % (0-1.3); Hematocrit 40.9 % (39.6-49.0); Lymphocytes % 33.2 % (15.3-44.8); MPV 9.1 fL (7.6-11.3); RBC Red Blood Cell Count 4.48 M/uL (4.33-5.43)
[2020-11-30 05:58] LABS: Potassium 3.7 mmol/L (3.5-5.1)
--- NOTE | 2020-11-30 07:03 | HP ---
Date of Admission: 11/29/2020 Chief Complaint: Chest pain. History Of Present Illness: This is an 85-year-old very pleasant male patient, who lives at [facility] and was in his usual state of health until yesterday late evening. He started to have some vague ch est pain in the left upper anterior chest area. The patient says that this chest pain was mild and w as continuous and it persisted since it started all throughout the night and this morning when he wok e up and as he went for breakfast and came back, he noted that the pain had intensified. His blood p ressure was high, when he checked it was around 174/94. He took his blood pressure medication and bl ood pressure did not come down, went up and he was still having chest pain, so he came to emergency r oom. After he came to ER, he was evaluated and admitted to the hospital. Gelatin Maker Utility, Dr. Miranda has evaluated him and when I saw him, he was asymptomatic. Denies any aggravating or relieving facto r for the chest pain. Allergies: TO PENICILLIN, CAUSING SHORTNESS OF BREATH; CIPRO AND IODINE, CAUSING THROAT SWELLING TYP E OF FEELING. Medications: List reviewed. Review of Systems: Cardiovascular: As mentioned above. All other systems reviewed and negative. Past Medical History: Significant for peripheral neuropathy, impaired fasting glucose, hypothyroidis m, hypertension, mixed hyperlipidemia, coronary artery disease, chronic atrial fibrillation, chronic anticoagulation therapy, diverticulosis, leg edema, osteoarthritis at multiple sites, vitamin B12 def iciency, anxiety, vitamin D deficiency. Past Surgical History: Cataract surgery, tonsillectomy, coronary artery bypass surgery in June 10, 2014, cholecystectomy, appendectomy, hernia repair, back surgery. Family History: Father , details unknown. Mother had hypertension and uterine cancer. Sister h ad hepatitis C. Social History: Prior history of smoking, not at present time. Use of alcohol negative. Physical Examination: Vital Signs: Temperature 97.6, pulse 47, respiratory rate 18, blood pressure 158/73, oxygen saturati on 96%. Height 5 feet 8 inches, weight 216 pounds. General: Awake, alert, oriented, not in distress. HEENT: Head atraumatic, normocephalic. Conjunctivae nonerythematous. Sclerae white. Mouth, no thr ush or edema noted. Ears/Nose, no mass, lesion, discharge noted. Neck: Supple. No JVD, lymph nodes, bruit, thyromegaly noted. Lungs: Bilateral good equal air entry. Clear to auscultation. No rhonchi. No rales. Heart: Normal heart sounds, no murmur or gallop. Abdomen: Soft, bowel sounds normal. No guarding, rigidity, tenderness, mass, hepatosplenomegaly, di stention, or bruit noted. Extremities: No leg edema. No calf tenderness. Skin: No rash, ulcer, cellulitis. Lymphatics: No lymph node enlargement in neck, supraclavicular, infraclavicular region. Neuro: No focal neurological deficit. Chest: Unremarkable. External Genitalia: Deferred. Rectal: Deferred. Laboratory Data: White count 5, hemoglobin 13.4, platelets 185. Sodium 142, potassium 4.7, chloride 106, bicarb 29, BUN 14, creatinine 1, glucose 103. Liver function tests normal. Troponin less than 0.02. Urinalysis negative. COVID-19 test negative. Chest x-ray shows mild CHF pattern. EKG, no a cute ST-T changes. Impression: 1.Chest pain. 2.Coronary artery disease. 3.Hypertension. 4.Mixed hyperlipidemia. 5.Hypothyroidism. 6.Peripheral neuropathy. 7.Chronic atrial fibrillation. 8.Chronic anticoagulation therapy. 9.Osteoarthritis, multiple sites. 10.Anxiety. Plan: We will go ahead and admit patient to hospital. Keep him on telemetry. Get serial cardiac en zymes. Consult ladle handler and Dr. Miranda has evaluated him, details were discussed with him. Irena e medications will be continued and I will see him tomorrow for followup. Dr. Miranda will evaluate his office record to see when was the last time patient had echocardiogram and stress test and then h e will provide appropriate recommendation about those test to be done. Details were discussed with t he patient. APRIL/MODL Voice ID: [id number]
[2020-11-30 08:46] VITALS: TEMP 97.8
[2020-11-30] MEDS ORDERED: ASPIRIN EC 81 MG TAB PO SCH (09:00)
[2020-11-30 11:48] VITALS: O2SAT 95
--- NOTE | 2020-11-30 12:19 | EKG ---
Test Date: 2020-11-29 Test Time: 10:43:09 Wrapper Layer And Examiner Soft Work: DEDRA MEASUREMENT RESULTS: Intervals: Rate: 56 MA: 212 QRSD: 78 QT: 460 QTc: 443 [place]: P: 38 MA: 212 QRS: 40 T: 103 INTERPRETIVE STATEMENTS: Sinus bradycardia with 1st degree AV block Nonspecific ST and T wave abnormality Abnormal ECG Compared to ECG 09/05/2020 21:50:22 First degree AV block now present ST (T wave) deviation now present Myocardial infarct finding no longer present Electronically Signed On 11-30-20 12:15:38 HOME HEALTH CARE PROVIDER by Toni Miranda
[2020-11-30 13:44] VITALS: BP 130/65
--- NOTE | 2020-12-03 21:31 | CON ---
Date of Consultation: 11/29/2020 Reason For Consultation: Chest pain. History Of Present Illness: Mr. Glass is an 85-year-old male. He is known to me from previous [facility] visits and admissions. He has a history of hypertension, dyslipidemia, gastroesophageal reflux dis ease, cholelithiasis, benign prostatic hypertrophy, coronary artery disease, and hypothyroidism. He has had a history of CABG in the past along other surgeries including spinal surgery, tonsillectomy, appendectomy, and cholecystectomy. Came in with left upper chest pain that was sharp, did not radiat e. No nausea, vomiting, diaphoresis, PND, orthopnea, pedal edema, palpitation, or syncope. At one oi, he described the pain as crushing and his symptoms were alleviated in the hospital with aspirin and nitroglycerin. Allergies: INCLUDE CIPROFLOXACIN, IODINE, AND PENICILLIN. Past Medical History: As stated above. Review of Systems: Negative. Social History: Negative. Family History: Noncontributory. Medications: At home include Xanax, Norvasc, citalopram, Proscar, gabapentin, hydralazine, Imdur, Sy nthroid, magnesium, omeprazole, Xarelto, Crestor, sotalol, clonidine. Physical Examination: General: When I saw him, he was pleasant. He was in no acute distress. He weighed 216 pounds. Vital Signs: Blood pressure is 137/67. He was in sinus rhythm at 56. Room air saturation was 95%. HEENT: Negative. Neck: Supple without any bruit, lymphadenopathy, JVD, or thyromegaly. Chest: Clear to auscultation and percussion. Cardiac: Regular rhythm and rate with an S4 gallops. Abdomen: Benign. Extremities: No clubbing, cyanosis, or edema. Laboratory Data: Chest x-ray showed mild congestive heart failure. EKG shows sinus bradycardia with first-degree AV block. His laboratory evaluation was fairly unremarkable with a negative troponin. Impression And Plan: 1.Atypical chest pain, except that it was relieved with nitroglycerin and aspirin, and certainly cou ld be related to his coronary artery disease. I will check my office records and see when was the la st time he had a stress test and an echocardiogram, and I will see him in the office in the near [facility], but I am comfortable with him going home with his home regimen. 2.Paroxysmal atrial fibrillation and sinus rhythm, on sotalol and Xarelto. 3.Anxiety. 4.Hypertension. 5.Hypothyroidism. 6.Dyslipidemia, on Crestor. 7.Allergy to contrast media. I am comfortable with Mr. Glass going home whenever it is okay with Dr. Justice. I will see him in the near future in the office. No cardiac workup recommended at this point. TORRI/RUFINA Voice ID: [id number] Report ID: [id number]
--- NOTE | 2020-12-13 15:52 | DS ---
Date of Discharge: 11/30/2020 Disposition: Discharged to go home. Physical Examination: HEENT: Unremarkable. Lungs: Clear to auscultation. Heart: Sounds normal. Abdomen: Soft. Bowel sounds normal. No guarding, rigidity, tenderness, distention. Extremities: No leg edema. Discharge Medications And Instructions: 1. Continue all prior home medications. 2. Follow up at my office next week on Saturday. Call office to schedule appointment. 3. Follow up with Dr. Miranda, staff research scientist and call his office to schedule appointment. Hospital Course: This is an 85-year-old pleasant male patient, who was admitted to the hospital with complaints of chest pain. Please see dictated H and P for more information. After the patient came into emergency room, he was evaluated and admitted to the hospital. He has underlying history of coronary artery disease. Cardiology consultation was requested from Dr. Miranda. The patient's OH was ruled out by getting serial cardiac enzymes. He did not have any recurrence of chest pain during this hospital stay. His home medications were continued. He is on chronic anticoagulation therapy because of atrial fibrillation and Dr. Miranda did not recommend any change in the medication during this hospital stay and he will pursue further cardiac workup on outpatient basis through his office. Laboratory Data: His chest x-ray; no acute cardiopulmonary changes noted except chest x-ray was reported as mild CHF pattern, but clinically the patient has no sign and symptoms of congestive heart failure. Initial white count 5, hemoglobin 13.4, platelets 185. Sodium 142, potassium 4.7, chloride 106, bicarb 29, BUN 14, creatinine 1, glucose 103. Liver function test unremarkable. Troponin less than 0.02 x3. Urinalysis negative. COVID-19 test negative. Final Diagnoses: 1. Chest pain. 2. Coronary artery disease. 3. Hypertension. 4. Mixed hyperlipidemia. 5. Hypothyroidism. 6. Peripheral neuropathy. 7. Chronic atrial fibrillation. 8. Chronic anticoagulation therapy. 9. Osteoarthritis, multiple sites. 10. Anxiety. APRIL/MODL Voice ID: [id number] Report ID: [id number] HANSEL
== END 2020-11-30 12:47 | disposition home or self-care (01) ==
LOC: ER 10:34 → ERHOLD 14:26 → 2ND 17:04
PROVIDERS: ADMIT Internal Medicine; ATTEND Internal Medicine
DX: R07.9 Chest pain, unspecified (principal); Z20.822 Contact with and (suspected) exposure to COVID-19; R94.31 Abnormal electrocardiogram [ECG] [EKG]; I11.0 Hypertensive heart disease with heart failure; I50.9 Heart failure, unspecified; E78.5 Hyperlipidemia, unspecified; K21.9 Gastro-esophageal reflux disease without esophagitis; K80.20 Calculus of gallbladder without cholecystitis without obstruction; N40.0 Benign prostatic hyperplasia without lower urinary tract symptoms; I25.10 Atherosclerotic heart disease of native coronary artery without angina pectoris; E03.9 Hypothyroidism, unspecified; Z95.1 Presence of aortocoronary bypass graft; I48.0 Paroxysmal atrial fibrillation; F41.9 Anxiety disorder, unspecified; G62.9 Polyneuropathy, unspecified; E78.2 Mixed hyperlipidemia; E53.8 Deficiency of other specified B group vitamins; E55.9 Vitamin D deficiency, unspecified; Z87.891 Personal history of nicotine dependence; I48.20 Chronic atrial fibrillation, unspecified
CPT/HCPCS: 96361; 93005 ×2; 85025 ×2; 80048 ×2; 36415; 83735; 85610; 80076; 81003; 84484 ×3; 83880; 71045; 96374; 99285; U0003; J1940; J7040; G0378

== ENCOUNTER 2021-01-02 14:52 | Emergency (ER) | payer OTHER ==
[2021-01-02 19:47] LABS: Absolute Lymphocytes (CBC) 2.2 K/uL (0.7-4.9); Basophils % 1.2 % (0-1.3); Hematocrit 44.3 % (39.6-49.0); Lymphocytes % 35.5 % (15.3-44.8); MPV 8.9 fL (7.6-11.3); RBC Red Blood Cell Count 4.86 M/uL (4.33-5.43)
[2021-01-02 20:00] LABS: Bilirubin Direct 0.2 mg/dL (0-0.2); Bilirubin Total 0.6 mg/dL (0.2-1.0); Potassium 4.6 mmol/L (3.5-5.1); Protein, Total 8.3 g/dL (6.4-8.2)
[2021-01-02 20:20] LABS: Urine Blood TRACE (NEG); Urine Glucose NEGATIVE (NEG); Urine Protein NEGATIVE (NEG); Urine pH 7.5 (5.0-7.0)
[2021-01-02] MEDS ORDERED: NA CHLORIDE 0.9% 500 ML ONE (20:49)
[2021-01-02] MEDS ORDERED: CEFTRIAXONE/SWI 1gm 1 GM/10 ML SYR ONE (20:49)
[2021-01-02] MEDS ORDERED: METRONIDAZOLE 500mg IVPB 500 MG/100 ML BAG IV ONE (20:50)
--- NOTE | 2021-01-02 22:36 | ER ---
Nurse's Notes [facility] Name: Thomas Glass Jr Age: 85 yrs Sex: Male : 1935 Arrival Date: 01/02/2021 Time: 14:53 Bed 23 Private MD: Diagnosis: Abdominal tenderness;Diverticular disease of intestine Presentation: 01/02 14:54 Chief complaint: EMS states: RLQ pain that began yesterday. Pt believed it was ss constipation and felt better after having a BM, but states that it is coming back and he noticed black streaking in stool. Coronavirus screen: Client denies travel out of the [place] in the last 14 days. Ebola Screen: Patient denies exposure to infectious person. Patient denies travel to an Ebola-affected area in the 21 days before illness onset. Onset of symptoms was January 01, 2021. 14:54 Method Of Arrival: EMS: [facility] ss 14:54 Acuity: NI 3 ss 15:03 Initial Sepsis Screen: Does the patient meet any 2 criteria? No. Patient's initial ll1 sepsis screen is negative. Does the patient have a suspected source of infection? Yes: Acute abdominal pain. Risk Assessment: Do you want to hurt yourself or someone else? Patient reports no desire to harm self or others. Historical: - Allergies: 14:58 Ciprofloxacin HCl; ss 14:58 Iodinated Contrast Media - IV Dye; ss 14:58 PENICILLINS; ss - Home Meds: 21:27 Xarelto 20 mg Oral tab 1 tab nightly [Active]; sotalol 120 mg Oral tab 1 tab 2 times sf per day [Active]; alprazolam 0.25 mg Oral tab nightly for Anxiety with Depression [Active]; amlodipine 10 mg tab 1 tab once daily for Hypertension [Active]; Centrum Silver Oral daily [Active]; citalopram 10 mg tab 1 tab once daily for Anxiety with Depression [Active]; clonidine HCl 0.1 mg Oral tab as needed [Active]; Crestor 40 mg Oral tab 1 tab nightly for Hypercholesterolemia [Active]; finasteride 5 mg Oral tab 1 tab nightly for Symptomatic Benign Prostatic Hyperplasia [Active]; furosemide 40 mg Oral tab 1 tab once daily [Active]; gabapentin 300 mg Oral cap twice a day for Neuropathic Pain [Active]; Isosorbide Mononitrate Oral [Active]; levothyroxine 100 mcg tab 1 tab once daily for Hypothyroidism [Active]; Nitrostat 0.4 mg SL subl 1 tab [Active]; omeprazole 40 mg Oral cpDR 1 cap once daily for Gastroesophageal reflux [Active]; rosuvastatin Oral [Active]; - PMHx: 14:58 ATHEROSCLEROSIS; Hypothyroidism; High Cholesterol; Hypertension; Cholelithiasis; GERD; ss BPH; - PSHx: 14:58 Cholecystectomy; Appendectomy; Tonsillectomy; CABG; Spinal Surgery; triple bypass; ss - Immunization history:: Adult Immunizations up to date, Flu vaccine is up to date. - Social history:: Smoking status: Patient denies any tobacco usage or history of. - Family history:: not pertinent. Screenin:10 Abuse screen: Denies threats or abuse. Denies injuries from another. Nutritional sf screening: No deficits noted. Tuberculosis screening: No symptoms or risk factors identified. Never had TB. Possible symptoms: None Risk factors: None. Fall Risk No fall in past 12 months (0 pts). No secondary diagnosis (0 pts). IV access (20 points). Ambulatory Aid- Crutches/Cane/Walker (15 pts). Gait- Weak (10 pts.). Mental Status- Oriented to own ability (0 pts). Total Arriola Fall Scale indicates High Risk Score (45 or more points). Fall prevention measures have been instituted. Side Rails Up X 2 Placed Close to Nursing Station. Assessment: 19:10 General: Appears in no apparent distress. comfortable, Behavior is calm, cooperative, sf appropriate for age. Pain: Complains of pain in right lower quadrant. Neuro: No deficits noted. Level of Consciousness is awake, alert, obeys commands, Oriented to person, place, time, situation, Appropriate for age. Cardiovascular: No deficits noted. Patient's skin is warm and dry. Respiratory: No deficits noted. Airway is patent Respiratory effort is even, unlabored, Respiratory pattern is regular, symmetrical. GI: Abdomen is non-distended, Abd is soft and non tender X 4 quads. Reports lower abdominal pain, Patient currently denies normal bowel habits. : No signs and/or symptoms were reported regarding the genitourinary system. Vital Signs: 15:03 BP 111 / 60; Pulse 60; Resp 17; Temp 98.2; Pulse Ox 97% ; Weight 89.36 kg; Height 5 ft. ll1 8 in. (172.72 cm); Pain 6/10; 20:15 BP 158 / 82; Pulse 56; Resp 16; Pulse Ox 93% ; sf 21:21 BP 137 / 72; Pulse 72; Resp 16; Pulse Ox 93% ; sf 23:20 BP 155 / 75; Pulse 62; Resp 17; Temp 97.9; Pulse Ox 98% on R/A; Pain 2/10; ar5 15:03 Body Mass Index 29.95 (89.36 kg, 172.72 cm) ll1 ED Course: 14:53 Patient arrived in ED. ll1 14:56 Triage completed. ss 14:58 Arm band placed on right wrist. ss 19:06 Buddy Mccall MD is Attending Physician. rivka 19:10 Donte Argueta RN is Primary Nurse. sf 19:10 Patient has correct armband on for positive identification. Placed in gown. Bed in low sf position. Call light in reach. Side rails up X 1. Pulse ox on. NIBP on. Door closed. Noise minimized. Visitors limited. Lights dimmed. Warm blanket given. Verbal reassurance given. 20:11 Basic Metabolic Panel Sent. sf 20:11 CBC with Diff Sent. sf 20:20 Inserted saline lock: 20 gauge in right antecubital area, using aseptic technique. sf 21:13 Abdomen Sent. sf 21:28 Abdomen In Process Unspecified. EDMS 22:35 Tracy Justice MD is Referral Physician. rivka 23:33 No provider procedures requiring assistance completed. IV discontinued, intact, sf bleeding controlled, No redness/swelling at site. Pressure dressing applied. Administered Medications: 20:30 Drug: NS 0.9% 500 ml Route: IV; Rate: bolus; Site: right antecubital; sf 21:05 Follow up: IV Status: Completed infusion; IV Intake: 500ml sf 21:05 Follow up: Response: No adverse reaction sf 20:32 Drug: Rocephin 1 grams Route: IV; Rate: per protocol; Site: right antecubital; sf 20:38 Follow up: IV Status: Completed infusion; IV Intake: 10ml sf 21:05 Follow up: Response: No adverse reaction sf 20:38 Drug: Flagyl 500 mg Volume: 100 ml; Route: IVPB; Rate: 200 ml/hr; Infused Over: 30 sf mins; Site: right antecubital; 21:05 Follow up: IV Status: Completed infusion; IV Intake: 200ml sf Intake: 20:38 IV: 10ml; Total: 10ml. sf 21:05 IV: 500ml; Total: 510ml. sf 21:05 IV: 200ml; Total: 710ml. sf Output: 23:33 Urine: 325ml (Voided); Total: 325ml. sf Outcome: 22:35 Discharge ordered by MD. tineo 23:33 Discharged to home ambulatory. sf 23:33 Condition: stable 23:33 Discharge instructions given to patient, Instructed on discharge instructions, follow up and referral plans. medication usage, Demonstrated understanding of instructions, follow-up care, medications, Prescriptions given X 2. 23:52 Patient left the ED. mw2 Signatures: Dispatcher [employer] EDMS Buddy Mccall MD MD cha Smirch, Shelby RN RN Emily Han mw2 Sonya Aggarwal ar5 Tamia Bell RN RN 1 Donte Argueta RN RN sf
--- NOTE | 2021-01-02 22:36 | EDPHYS ---
Physician Documentation [facility] Name: [facility] Glass [facility] Age: 85 yrs Sex: Male : 1935 Arrival Date: 01/02/2021 Time: 14:53 Bed 23 Private MD: NED Physician Buddy Mccall HPI: 01/02 19:23 This 85 yrs old Male presents to ER via EMS with complaints of Abdominal Pain.rivka 19:23 The patient presents with abdominal pain right lower quadrant, abdominal distention in rivka the upper abdomen, in the lower abdomen. Onset: The symptoms/episode began/occurred 2 day(s) ago. The patient presents to the emergency department with rectal bleeding, a small amount, dark red blood with bowel movement. Onset: The symptoms/episode began/occurred 2 day(s) ago. Abdominal pain: described as achy, crampy, located in the right lower quadrant. Modifying factors: The symptoms are alleviated by nothing, the symptoms are aggravated by nothing. Associated signs and symptoms: The patient has no apparent associated signs or symptoms. The symptoms do not radiate. Modifying factors: The symptoms are alleviated by nothing, the symptoms are aggravated by movement. Historical: - Allergies: 14:58 Ciprofloxacin HCl; ss 14:58 Iodinated Contrast Media - IV Dye; ss 14:58 PENICILLINS; ss - Home Meds: 21:27 Xarelto 20 mg Oral tab 1 tab nightly [Active]; sotalol 120 mg Oral tab 1 tab 2 times sf per day [Active]; alprazolam 0.25 mg Oral tab nightly for Anxiety with Depression [Active]; amlodipine 10 mg tab 1 tab once daily for Hypertension [Active]; Centrum Silver Oral daily [Active]; citalopram 10 mg tab 1 tab once daily for Anxiety with Depression [Active]; clonidine HCl 0.1 mg Oral tab as needed [Active]; Crestor 40 mg Oral tab 1 tab nightly for Hypercholesterolemia [Active]; finasteride 5 mg Oral tab 1 tab nightly for Symptomatic Benign Prostatic Hyperplasia [Active]; furosemide 40 mg Oral tab 1 tab once daily [Active]; gabapentin 300 mg Oral cap twice a day for Neuropathic Pain [Active]; Isosorbide Mononitrate Oral [Active]; levothyroxine 100 mcg tab 1 tab once daily for Hypothyroidism [Active]; Nitrostat 0.4 mg SL subl 1 tab [Active]; omeprazole 40 mg Oral cpDR 1 cap once daily for Gastroesophageal reflux [Active]; rosuvastatin Oral [Active]; - PMHx: 14:58 ATHEROSCLEROSIS; Hypothyroidism; High Cholesterol; Hypertension; Cholelithiasis; GERD; ss BPH; - PSHx: 14:58 Cholecystectomy; Appendectomy; Tonsillectomy; CABG; Spinal Surgery; triple bypass; ss - Immunization history:: Adult Immunizations up to date, Flu vaccine is up to date. - Social history:: Smoking status: Patient denies any tobacco usage or history of. - Family history:: not pertinent. ROS: 19:23 Constitutional: Negative for fever, chills, and weight loss, Eyes: Negative for injury, rivka pain, redness, and discharge, ENT: Negative for injury, pain, and discharge, Neck: Negative for injury, pain, and swelling, Cardiovascular: Negative for chest pain, palpitations, and edema, Respiratory: Negative for shortness of breath, cough, wheezing, and pleuritic chest pain, Back: Negative for injury and pain, : Negative for injury, bleeding, discharge, and swelling, MS/Extremity: Negative for injury and deformity, Skin: Negative for injury, rash, and discoloration, Neuro: Negative for headache, weakness, numbness, tingling, and seizure, Psych: Negative for depression, anxiety, suicide ideation, homicidal ideation, and hallucinations, Allergy/Immunology: Negative for hives, rash, and allergies, Endocrine: Negative for neck swelling, polydipsia, polyuria, polyphagia, and marked weight changes, Hematologic/Lymphatic: Negative for swollen nodes, abnormal bleeding, and unusual bruising. 19:23 Abdomen/GI: Positive for abdominal pain, black/tarry stool, of the right lower quadrant. Exam: 19:23 Constitutional: This is a well developed, well nourished patient who is awake, alert, rivka and in no acute distress. Head/Face: Normocephalic, atraumatic. Eyes: Pupils equal round and reactive to light, extra-ocular motions intact. Lids and lashes normal. Conjunctiva and sclera are non-icteric and not injected. Cornea within normal limits. Periorbital areas with no swelling, redness, or edema. ENT: Nares patent. No nasal discharge, no septal abnormalities noted. Tympanic membranes are normal and external auditory canals are clear. Oropharynx with no redness, swelling, or masses, exudates, or evidence of obstruction, uvula midline. Mucous membranes moist. Neck: Trachea midline, no thyromegaly or masses palpated, and no cervical lymphadenopathy. Supple, full range of motion without nuchal rigidity, or vertebral point tenderness. No Meningismus. Chest/axilla: Normal chest wall appearance and motion. Nontender with no deformity. No lesions are appreciated. Cardiovascular: Regular rate and rhythm with a normal S1 and S2. No gallops, murmurs, or rubs. Normal PMI, no JVD. No pulse deficits. Respiratory: Lungs have equal breath sounds bilaterally, clear to auscultation and percussion. No rales, rhonchi or wheezes noted. No increased work of breathing, no retractions or nasal flaring. Back: No spinal tenderness. No costovertebral tenderness. Full range of motion. Male : Normal genitalia with no discharge or lesions. Skin: Warm, dry with normal turgor. Normal color with no rashes, no lesions, and no evidence of cellulitis. MS/ Extremity: Pulses equal, no cyanosis. Neurovascular intact. Full, normal range of motion. Neuro: Awake and alert, GCS 15, oriented to person, place, time, and situation. Cranial nerves II-XII grossly intact. Motor strength 5/5 in all extremities. Sensory grossly intact. Cerebellar exam normal. Normal gait. Psych: Awake, alert, with orientation to person, place and time. Behavior, mood, and affect are within normal limits. 19:23 Abdomen/GI: Inspection: abdomen appears normal, Bowel sounds: normal, Palpation: mild abdominal tenderness, in the right lower quadrant, Liver: no appreciated palpable abnormalities, Hernia: not appreciated. 19:37 Abdomen/GI: Rectal exam: is unremarkable, rectal tone normal, Stool: guaiac negative, rivka hemorrhoid(s), are not appreciated, mass, is not appreciated, swelling, is not appreciated, tenderness, is not appreciated, fecal impaction, is not appreciated. Vital Signs: 15:03 BP 111 / 60; Pulse 60; Resp 17; Temp 98.2; Pulse Ox 97% ; Weight 89.36 kg; Height 5 ft. ll1 8 in. (172.72 cm); Pain 6/10; 20:15 BP 158 / 82; Pulse 56; Resp 16; Pulse Ox 93% ; sf 21:21 BP 137 / 72; Pulse 72; Resp 16; Pulse Ox 93% ; sf 23:20 BP 155 / 75; Pulse 62; Resp 17; Temp 97.9; Pulse Ox 98% on R/A; Pain 2/10; ar5 15:03 Body Mass Index 29.95 (89.36 kg, 172.72 cm) ll1 MDM: 19:07 Patient medically screened. [facility] 19:38 Differential diagnosis: diverticulitis, hemorrhoids, bowel obstruction, diverticulitis, rikva GI Bleed, Mesenteric ischemia or infarction, non-specific abd pain, pancreatitis, Prostatitis, Pyelonephritis, urinary tract infection. Data reviewed: vital signs, nurses notes, lab test result(s), radiologic studies, CT scan. Data interpreted: desk monitor: rate is 60 beats/min, rhythm is regular, Pulse oximetry: on room air is 97 %. Counseling: I had a detailed discussion with the patient and/or guardian regarding: the historical points, exam findings, and any diagnostic results supporting the discharge/admit diagnosis, lab results, radiology results. 01/02 19:21 Order name: Basic Metabolic Panel [facility] 01/02 19:21 Order name: CBC with Diff [facility] 01/02 19:21 Order name: Hepatic Function; Complete Time: 20:12 [facility] 01/02 19:21 Order name: Lipase; Complete Time: 20:12 [facility] 01/02 19:21 Order name: Urine Culture [facility] 01/02 19:22 Order name: Basic Metabolic Panel; Complete Time: 20:12 [facility] 01/02 19:21 Order name: IV Saline Lock; Complete Time: 20:25 [facility] 01/02 19:22 Order name: CBC with Automated Diff; Complete Time: 20:12 [facility] 01/02 19:45 Order name: Abdomen [facility] 01/02 19:58 Order name: Urine Dipstick--Ancillary (enter results); Complete Time: 21:28 [facility] 01/02 19:21 Order name: Labs collected and sent; Complete Time: 19:57 [facility] 01/02 19:21 Order name: Urine Dipstick-Ancillary (obtain specimen); Complete Time: 19:57 [facility] Administered Medications: 20:30 Drug: NS 0.9% 500 ml Route: IV; Rate: bolus; Site: right antecubital; sf 21:05 Follow up: IV Status: Completed infusion; IV Intake: 500ml sf 21:05 Follow up: Response: No adverse reaction sf 20:32 Drug: Rocephin 1 grams Route: IV; Rate: per protocol; Site: right antecubital; sf 20:38 Follow up: IV Status: Completed infusion; IV Intake: 10ml sf 21:05 Follow up: Response: No adverse reaction sf 20:38 Drug: Flagyl 500 mg Volume: 100 ml; Route: IVPB; Rate: 200 ml/hr; Infused Over: 30 sf mins; Site: right antecubital; 21:05 Follow up: IV Status: Completed infusion; IV Intake: 200ml sf Disposition: 01/02/21 22:35 Discharged to Home. Impression: Abdominal tenderness, Diverticular disease of intestine. - Condition is Stable. - Discharge Instructions: Abdominal Pain, Adult, High-Fiber Diet, Diverticulosis, Abdominal Pain, Adult, [id number], Fiber Content in Foods. - Prescriptions for Bentyl 20 mg Oral Tablet - take 1 tablet by ORAL route every 6 hours As needed; 20 tablet. Flagyl 500 mg Oral Tablet - take 1 tablet by ORAL route every 12 hours for 7 days; 14 tablet. - Medication Reconciliation Form, Thank You Letter, Antibiotic Education, Prescription Opioid Use form. - Follow up: A Justice; When: 2 - 3 days; Reason: Recheck today's complaints, Continuance of care, Re-evaluation by your physician. - Problem is new. - Symptoms have improved. Signatures: Dispatcher [employer] [facility] Buddy Mccall MD MD cha Smirch, Shelby, RN RN Emily Han mw2 Tamia Bell RN RN ll1 Donte Argueta RN RN sf Corrections: (The following items were deleted from the chart) 19:45 19:22 Abdomen Pelvis W Con+CT.[id number].[id number] ordered. [facility] 23:52 22:35 01/02/2021 22:35 Discharged to Home. Impression: Abdominal tenderness; mw2 Diverticular disease of intestine. Condition is Stable. Discharge Instructions: Abdominal Pain, Adult, Diverticulosis, Abdominal Pain, Adult, [id number], High-Fiber Diet, Fiber Content in Foods. Prescriptions for Bentyl 20 mg Oral Tablet - take 1 tablet by ORAL route every 6 hours As needed; 20 tablet, Flagyl 500 mg Oral Tablet - take 1 tablet by ORAL route every 12 hours for 7 days; 14 tablet. and Forms are Medication Reconciliation Form, Thank You Letter, Antibiotic Education, Prescription Opioid Use. Follow up: Tracy Justice; When: 2 - 3 days; Reason: Recheck today's complaints, Continuance of care, Re-evaluation by your physician. Problem is new. Symptoms have improved. rivka
[2021-01-03 00:17] VITALS: BP 155/75; TEMP 97.9; O2SAT 98
--- NOTE | 2021-01-03 10:44 | RAD REPORT ---
EXAM DESCRIPTION: CT - Abdomen Pelvis Wo Contrast - 01/03/2021 6:54 am CLINICAL HISTORY: Right lower quadrant pain. COMPARISON: None. TECHNIQUE: CT scan of the abdomen and pelvis was performed without IV contrast. This exam was perfor med according to our departmental dose-optimization program, which includes automated exposure contro l, adjustment of the mA and/or kV according to patient size and/or use of iterative reconstruction te chnique. FINDINGS: The lung bases are clear. No pleural or pericardial effusions. There is no hiatal hernia. There has been a prior cholecystectomy. The liver, spleen, pancreas, and adrenal glands are unremarka ble. There is a tiny nonobstructing calcification in the right kidney. There is also a simple cyst in the left kidney. No hydronephrosis. The pelvic organs are normal. Oral contrast is seen throughout the small and large bowel. There is no evidence of bowel obstruction or inflammation. There has been a prior appendectomy. The stomach is also normal. There is no intrap eritoneal adenopathy, free fluid, or free air. There is fixation hardware throughout the lumbosacral spine. The aorta is normal caliber and contains atherosclerotic calcifications. No abnormal body wall hernia is evident. IMPRESSION: No acute abdominal or pelvic findings. Electronically signed by: Mckinley Crocker MD 01/02/2021 10:21 PM [employer] Due to temporary technical issues with the PACS/Fluency reporting system, reports are being signed by the in house radiologist without review as a courtesy to ensure prompt reporting. The interpreting r adiologist is fully responsible for the content of the report.
== END 2021-01-02 23:52 | disposition home or self-care (01) ==
LOC: ER 14:52
DX: K57.90 Diverticulosis of intestine, part unspecified, without perforation or abscess without bleeding (principal); I10 Essential (primary) hypertension; E78.00 Pure hypercholesterolemia, unspecified; E03.9 Hypothyroidism, unspecified; F41.8 Other specified anxiety disorders; Z79.01 Long term (current) use of anticoagulants; Z88.0 Allergy status to penicillin; Z88.1 Allergy status to other antibiotic agents; Z91.041 Radiographic dye allergy status
CPT/HCPCS: 96365; 87088; 85025; 87086; 80048; 36415; 80076; 81003; 83690; 74176; 96375; 99284; J0696; J7040

== ENCOUNTER 2021-10-24 12:03 | Emergency (ER) | payer OTHER ==
[2021-10-24 12:45] LABS: Absolute Lymphocytes (CBC) 1.4 K/uL (0.7-4.9); Hematocrit 39.9 % (39.6-49.0); Lymphocytes % 28.4 % (15.3-44.8); MPV 8.2 fL (7.6-11.3); RBC Red Blood Cell Count 4.34 M/uL (4.33-5.43)
[2021-10-24 12:50] LABS: Protime INR 1.01
--- NOTE | 2021-10-24 12:52 | RAD REPORT ---
EXAM DESCRIPTION: RAD - Chest Single View - 10/24/2021 12:34 pm CLINICAL HISTORY: CHEST PAIN Chest pain. COMPARISON: Chest Single View dated 11/29/2020; Chest Single View dated 09/05/2020; Chest Single View d ated 06/09/2019; Chest Single View dated 10/15/2018 FINDINGS: Portable technique limits examination quality. Mild bilateral interstitial lung opacities are seen which probably represent viral infection or mild pulmonary edema. . The heart is moderately enlarged with changes of a prior CABG noted. No displaced fractures.Aortic atherosclerosis. IMPRESSION: Mild CHF versus viral infection pattern.
[2021-10-24 13:04] LABS: ALT/SGPT 24 U/L (12-78); AST/SGOT 12 U/L (15-37); Alkaline Phosphatase 72 U/L (45-117); BUN Blood Urea Nitrogen 16 mg/dL (7-18); Bicarbonate 26 mmol/L (21-32); Bilirubin Direct 0.1 mg/dL (0-0.2); Bilirubin Total 0.5 mg/dL (0.2-1.0); Glucose Level 117 mg/dL (74-106); Magnesium 2.3 mg/dL (1.8-2.4); NT PRO-BNP 256 pg/mL (<450); Potassium 3.7 mmol/L (3.5-5.1); Protein, Total 6.7 g/dL (6.4-8.2); Sodium Level 138 mmol/L (136-145); Troponin (Emerg Dept Use Only) < 0.02 ng/mL (0.0-0.045)
--- NOTE | 2021-10-24 14:30 | EDPHYS ---
Physician Documentation [facility] Name: Thomas Glass Jr Age: 85 yrs Sex: Male : 1935 Arrival Date: 10/24/2021 Time: 12:06 Bed 9 Private MD: ED Physician Harry Leigh HPI: 10/24 14:30 This 85 yrs old Male presents to ER via EMS with complaints of Chest Pain. kdr 14:30 The patient or guardian reports chest pain that is located primarily in the substernal kdr area. Onset: suddenly, just prior to arrival. The pain does not radiate. Associated signs and symptoms: The patient has no apparent associated signs or symptoms. Patient states that he awoke from a nap and felt that his blood pressure was elevated. When he took his blood pressure it was noted to be approximately 210/100. He also experienced some chest discomfort at that time, mid chest nonradiating. He did not have any other associated signs or symptoms at the time. He took 1 clonidine (0.1 mg) and began to feel better within a few minutes. He presented to the ED in no pain and was otherwise comfortable and nontoxic. Historical: - Allergies: 12:07 Ciprofloxacin HCl; ll1 12:07 Iodinated Contrast Media - IV Dye; ll1 12:07 PENICILLINS; ll1 - PMHx: 12:07 ATHEROSCLEROSIS; GERD; Hypertension; High Cholesterol; Cholelithiasis; Hypothyroidism; ll1 BPH; - PSHx: 12:07 Coronary artery bypass graft; ll1 - Immunization history:: Adult Immunizations up to date, Client reports receiving the 2nd dose of the Covid vaccine. - Social history:: Smoking status: Patient denies any tobacco usage or history of. ROS: 14:30 Constitutional: Negative for fever, chills, and weight loss, Eyes: Negative for injury, kdr pain, redness, and discharge, ENT: Negative for injury, pain, and discharge, Neck: Negative for injury, pain, and swelling, Respiratory: Negative for shortness of breath, cough, wheezing, and pleuritic chest pain, Abdomen/GI: Negative for abdominal pain, nausea, vomiting, diarrhea, and constipation, Back: Negative for injury and pain, : Negative for injury, bleeding, discharge, and swelling, MS/Extremity: Negative for injury and deformity, Skin: Negative for injury, rash, and discoloration, Neuro: Negative for headache, weakness, numbness, tingling, and seizure activity. Psych: Negative for depression, anxiety, suicide ideation, homicidal ideation, and hallucinations, Allergy/Immunology: Negative for hives, rash, and allergies, Endocrine: Negative for neck swelling, polydipsia, polyuria, polyphagia, and marked weight changes, Hematologic/Lymphatic: Negative for swollen nodes, abnormal bleeding, and unusual bruising. 14:30 Cardiovascular: Positive for chest pain, of the chest, Negative for edema, orthopnea, palpitations, paroxysmal nocturnal dyspnea, acute changes. Exam: 14:30 Constitutional: This is a well developed, well nourished patient who is awake, alert, kdr and in no acute distress. Head/Face: Normocephalic, atraumatic. Eyes: Pupils equal round and reactive to light, extra-ocular motions intact. Lids and lashes normal. Conjunctiva and sclera are non-icteric and not injected. Cornea within normal limits. Periorbital areas with no swelling, redness, or edema. Neck: Trachea midline, no thyromegaly or masses palpated, and no cervical lymphadenopathy. Supple, full range of motion without nuchal rigidity, or vertebral point tenderness. No Meningismus. Chest/axilla: Normal chest wall appearance and motion. Nontender with no deformity. No lesions are appreciated. Cardiovascular: Regular rate and rhythm with a normal S1 and S2. No gallops, murmurs, or rubs. Normal PMI, no JVD. No pulse deficits. Respiratory: Lungs have equal breath sounds bilaterally, clear to auscultation and percussion. No rales, rhonchi or wheezes noted. No increased work of breathing, no retractions or nasal flaring. Abdomen/GI: Soft, non-tender, with normal bowel sounds. No distension or tympany. No guarding or rebound. No evidence of tenderness throughout. Back: No spinal tenderness. No costovertebral tenderness. Full range of motion. Skin: Warm, dry with normal turgor. Normal color with no rashes, no lesions, and no evidence of cellulitis. MS/ Extremity: Pulses equal, no cyanosis. Neurovascular intact. Full, normal range of motion. Neuro: Awake and alert, GCS 15, oriented to person, place, time, and situation. Cranial nerves II-XII grossly intact. Motor strength 5/5 in all extremities. Sensory grossly intact. Cerebellar exam normal. Normal gait. Psych: Awake, alert, with orientation to person, place and time. Behavior, mood, and affect are within normal limits. 16:14 ECG was reviewed by the Attending Physician. kdr Vital Signs: 12:29 BP 110 / 63; Pulse 60; Resp 17; Temp 98.0; Pulse Ox 95% on R/A; Pain 0/10; ll1 16:30 BP 148 / 77; Pulse 58; Resp 16; ll1 18:10 BP 136 / 69; Pulse 60; ll1 MDM: 14:29 Patient medically screened. kdr 16:20 Data reviewed: vital signs, nurses notes, lab test result(s), EKG, radiologic studies. kdr Counseling: I had a detailed discussion with the patient and/or guardian regarding: the historical points, exam findings, and any diagnostic results supporting the discharge/admit diagnosis, lab results, radiology results, the need for further work-up and treatment in the hospital. 10/24 12:15 Order name: Basic Metabolic Panel kdr 10/24 12:15 Order name: CBC with Diff; Complete Time: 14:27 kdr 10/24 12:15 Order name: LFT's; Complete Time: 14:27 kdr 10/24 12:15 Order name: Magnesium; Complete Time: 14:27 kdr 10/24 12:15 Order name: NT PRO-BNP; Complete Time: 14:27 kdr 10/24 12:15 Order name: PT-INR; Complete Time: 14:27 kdr 10/24 12:15 Order name: Troponin (emerg Dept Use Only); Complete Time: 14:27 kdr 10/24 12:15 Order name: XRAY Chest (1 view); Complete Time: 14:27 kdr 10/24 12:15 Order name: EKG; Complete Time: 12:16 kdr 10/24 12:15 Order name: Cardiac monitoring; Complete Time: 12:33 kdr 10/24 12:15 Order name: EKG - Nurse/Tech; Complete Time: 12:33 kdr 10/24 12:16 Order name: Basic Metabolic Panel; Complete Time: 14:27 EDMS 10/24 16:50 Order name: Troponin (emerg Dept Use Only) kdr 10/24 16:50 Order name: Troponin (Emerg Dept Use Only); Complete Time: 17:43 EDIN 10/24 12:15 Order name: IV Saline Lock; Complete Time: 12:19 kdr 10/24 12:15 Order name: Labs collected and sent; Complete Time: 12:19 kdr 10/24 12:15 Order name: O2 Per Protocol; Complete Time: 12:19 kdr 10/24 12:15 Order name: O2 Sat Monitoring; Complete Time: 12:19 kdr EC:14 Rate is 63 beats/min. Rhythm is regular, Sinus Rhythm with No ectopy. QRS Plummer is kdr Normal. FL interval is normal. QRS interval is normal. QT interval is normal. Administered Medications: No medications were administered Disposition Summary: 10/24/21 17:45 Discharge Ordered Location: Home(10/24/21 17:45) kdr Problem: new(10/24/21 17:45) kdr Symptoms: have improved(10/24/21 17:45) kdr Condition: Stable(10/24/21 17:45) kdr Diagnosis - Chest pain, unspecified kdr - Hypertensive heart disease without heart failure - Acute exacerbation, resolved kdr Followup: kdr - With: Tracy Justice MD - When: 1 week - Reason: If symptoms return, Further diagnostic work-up, Recheck today's complaints, Continuance of care, Re-evaluation by your physician Discharge Instructions: - Discharge Summary Sheet kdr - Nonspecific Chest Pain, Adult, [id number] kdr - Hypertension, Adult, [id number] kdr Forms: - Medication Reconciliation Form kdr - Thank You Letter kdr Signatures: Dispatcher [employer] EDIN Harry Leigh MD MD kdr Tamia Bell RN RN ll1 Corrections: (The following items were deleted from the chart) 17:44 14:29 Inpatient Admission kdr kdr 17:44 14:29 Tracy Justice kdr kdr 17:44 14:29 Telemetry/MedSurg (Inpatient) kdr kdr 17:44 14:29 Stable kdr kdr 17:44 14:29 new kdr kdr 17:44 14:29 are resolved kdr kdr 17:44 14:29 Standard kdr kdr 17:44 14:29 kdr kdr 17:44 14:29 Unstable angina kdr kdr 17:44 14:29 Hypertensive heart disease with heart failure kdr kdr
--- NOTE | 2021-10-24 14:30 | ER ---
Nurse's Notes [facility] Name: Thomas Glass Jr Age: 85 yrs Sex: Male : 1935 Arrival Date: 10/24/2021 Time: 12:06 Bed 9 Private MD: Diagnosis: Chest pain, unspecified;Hypertensive heart disease without heart failure-Acute exacerbation, resolved Presentation: 10/24 12:07 Chief complaint: Patient states: L sided CP for 1 day. Took BP at home 240's systolic, ll1 took clonidine and CP resolved. Coronavirus screen: Vaccine status:. Ebola Screen: Patient denies travel to an Ebola-affected area in the 21 days before illness onset. Initial Sepsis Screen: Does the patient meet any 2 criteria? No. Patient's initial sepsis screen is negative. Does the patient have a suspected source of infection? No. Patient's initial sepsis screen is negative. Risk Assessment: Do you want to hurt yourself or someone else? Patient reports no desire to harm self or others. Onset of symptoms was October 24, 2021. 12:07 Method Of Arrival: EMS ll1 12:07 Acuity: NI 3 ll1 Triage Assessment: 12:10 General: Appears in no apparent distress. Behavior is calm, cooperative, appropriate ll1 for age. Pain: Denies pain. Neuro: No deficits noted. Cardiovascular: Reports chest pain, CP earlier that resolved after taking his clonidine. Heart tones S1 S2 Capillary refill < 3 seconds Clubbing of nail beds is absent JVD is absent Patient's skin is warm and dry. Rhythm is regular. Historical: - Allergies: 12:07 Ciprofloxacin HCl; ll1 12:07 Iodinated Contrast Media - IV Dye; ll1 12:07 PENICILLINS; ll1 - PMHx: 12:07 ATHEROSCLEROSIS; GERD; Hypertension; High Cholesterol; Cholelithiasis; Hypothyroidism; ll1 BPH; - PSHx: 12:07 Coronary artery bypass graft; ll1 - Immunization history:: Adult Immunizations up to date, Client reports receiving the 2nd dose of the Covid vaccine. - Social history:: Smoking status: Patient denies any tobacco usage or history of. Screenin:30 Abuse screen: Denies threats or abuse. Nutritional screening: No deficits noted. ll1 Tuberculosis screening: No symptoms or risk factors identified. Fall Risk IV access (20 points). Total Arriola Fall Scale indicates No Risk (0-24 pts). Assessment: 13:10 Reassessment: No changes from previously documented assessment. Patient and/or family ll1 updated on plan of care and expected duration. Pain level reassessed. Patient is alert, oriented x 3, equal unlabored respirations, skin warm/dry/pink. 14:10 Reassessment: No changes from previously documented assessment. Patient and/or family ll1 updated on plan of care and expected duration. Pain level reassessed. Patient is alert, oriented x 3, equal unlabored respirations, skin warm/dry/pink. 15:10 Reassessment: No changes from previously documented assessment. Patient and/or family ll1 updated on plan of care and expected duration. Pain level reassessed. Patient is alert, oriented x 3, equal unlabored respirations, skin warm/dry/pink. Pain: Denies pain. 16:10 Reassessment: No changes from previously documented assessment. Patient and/or family ll1 updated on plan of care and expected duration. Pain level reassessed. Patient is alert, oriented x 3, equal unlabored respirations, skin warm/dry/pink. 17:10 Reassessment: No changes from previously documented assessment. Patient and/or family ll1 updated on plan of care and expected duration. Pain level reassessed. Patient is alert, oriented x 3, equal unlabored respirations, skin warm/dry/pink. 18:17 Reassessment: No changes from previously documented assessment. Patient and/or family ll1 updated on plan of care and expected duration. Pain level reassessed. Patient is alert, oriented x 3, equal unlabored respirations, skin warm/dry/pink. 18:18 Pain: Pain does not radiate. Pain began 1 day ago. ll1 Vital Signs: 12:29 BP 110 / 63; Pulse 60; Resp 17; Temp 98.0; Pulse Ox 95% on R/A; Pain 0/10; ll1 16:30 BP 148 / 77; Pulse 58; Resp 16; ll1 18:10 BP 136 / 69; Pulse 60; ll1 ED Course: 12:06 Patient arrived in ED. ll1 12:07 Arm band placed on Patient placed in an exam room, on a stretcher. ll1 12:10 Maintain EMS IV. Dressing intact. Good blood return noted. Site clean \T\ dry. Gauge \T\ ll 1 site: 22 G L FA. 12:11 Triage completed. ll1 12:15 Harry Leigh MD is Attending Physician. kdr 12:18 Tamia Bell, MARIANN is Primary Nurse. ll1 12:34 XRAY Chest (1 view) In Process Unspecified. EDMS 14:28 Tracy Justice MD is Hospitalizing Provider. kdr 14:30 Patient has correct armband on for positive identification. Bed in low position. Call ll1 light in reach. Side rails up X 1. traffic monitor specialist on. 14:31 No provider procedures requiring assistance completed. Patient maintains SpO2 ll1 saturation greater than 95% on room air. 17:45 Tracy Justice MD is Referral Physician. kdr 18:17 IV discontinued, intact, bleeding controlled, No redness/swelling at site. Pressure ll1 dressing applied. Administered Medications: No medications were administered Outcome: 14:29 Decision to Hospitalize by Provider. kdr 17:45 Discharge ordered by MD. kdr 18:18 Discharged to home via wheelchair. ll1 18:18 Condition: stable 18:18 Discharge instructions given to patient, Instructed on discharge instructions, follow up and referral plans. Demonstrated understanding of instructions, follow-up care. 18:18 Patient left the ED. ll1 Signatures: Dispatcher [employer] EDKS Harry Leigh MD MD kdr Tamia Bell, RN RN ll1 Corrections: (The following items were deleted from the chart) 14:30 12:29 BP 110 / ???; Temp 98.0F; Pain 0/10; ll1 ll1 14:30 14:28 BP 110 / 63; Pulse 60bpm; Resp 17bpm; Pulse Ox 95% RA; ll1 ll1
[2021-10-24 18:23] VITALS: BP 110/63; TEMP 98; O2SAT 95
== END 2021-10-24 18:18 | disposition home or self-care (01) ==
LOC: ER 12:03
DX: R07.9 Chest pain, unspecified (principal); I11.9 Hypertensive heart disease without heart failure; I10 Essential (primary) hypertension; Z95.1 Presence of aortocoronary bypass graft; Z88.0 Allergy status to penicillin; Z88.1 Allergy status to other antibiotic agents; Z91.041 Radiographic dye allergy status
CPT/HCPCS: 36415; 71045; 80048; 80076; 83735; 83880; 84484; 85025; 85610; 93005; 99284

== ENCOUNTER 2022-04-14 11:50 | Emergency (ER) | payer OTHER ==
[2022-04-14] MEDS ORDERED: NA CHLORIDE 0.9% 1,000 ML ONE (12:07)
[2022-04-14] MEDS ORDERED: ONDANSETRON 4 MG/2 ML VIAL ONE (12:21)
[2022-04-14] MEDS ORDERED: MORPHINE 4 MG/ML SYR ONE (12:21)
[2022-04-14 12:24] LABS: Absolute Lymphocytes (CBC) 1.5 K/uL (0.7-4.9); Hematocrit 39.6 % (39.6-49.0); Lymphocytes % 27.4 % (15.3-44.8); MPV 8.2 fL (7.6-11.3); RBC Red Blood Cell Count 4.31 M/uL (4.33-5.43)
[2022-04-14 12:43] LABS: Albumin 3.3 g/dL (3.4-5.0); Bilirubin Direct 0.1 mg/dL (0-0.2); Bilirubin Total 0.4 mg/dL (0.2-1.0); Potassium 3.9 mmol/L (3.5-5.1); Protein, Total 6.9 g/dL (6.4-8.2)
[2022-04-14] MEDS ORDERED: METHYLPREDNISOLONE 125 MG INJ ONE (13:18)
[2022-04-14] MEDS ORDERED: DIPHENHYDRAMINE 50 MG/ML VIAL ONE (13:18)
--- NOTE | 2022-04-14 13:38 | RAD REPORT ---
EXAM DESCRIPTION: CTAbdomen Pelvis W Contrast - 04/14/2022 1:27 pm CLINICAL HISTORY: Abdominal pain. Epigastric pain COMPARISON: CT ABD PELVIS W CONTRAST dated 03/12/2009 TECHNIQUE: Biphasic CT imaging of the abdomen and pelvis was performed with 100 ml non-ionic IV cont rast. All CT scans are performed using dose optimization technique as appropriate and may include automated exposure control or mA/KV adjustment according to patient size. FINDINGS: The lung bases are clear. The liver, spleen, pancreas, adrenal glands and kidneys are within normal limits. Benign cysts presen t both kidneys. Heavy aortic atherosclerosis. No bowel obstruction, free air, free fluid or abscess. Sigmoid diverticulosis coli without diverticul itis. Nonvisualized appendix. No evidence of significant lymphadenopathy. Hardware is present lumbar spine with moderate degenerative changes. IMPRESSION: No acute intra-abdominal or pelvic finding.
--- NOTE | 2022-04-14 14:14 | ER ---
Nurse's Notes [facility] Name: Thomas Glass Jr Age: 86 yrs Sex: Male : 1935 Arrival Date: 04/14/2022 Time: 11:52 Bed 7 Private MD: Diagnosis: Diarrhea, unspecified Presentation: 04/14 11:52 Chief complaint: Patient states: diarrhea with dark black/yellow stool. Coronavirus patino screen: Vaccine status: Patient reports receiving the 2nd dose of the covid vaccine. Ebola Screen: Patient denies travel to an Ebola-affected area in the 21 days before illness onset. Initial Sepsis Screen: Does the patient meet any 2 criteria? No. Patient's initial sepsis screen is negative. Does the patient have a suspected source of infection? No. Patient's initial sepsis screen is negative. Risk Assessment: Do you want to hurt yourself or someone else? Patient reports no desire to harm self or others. Onset of symptoms was April 14, 2022. 11:52 Method Of Arrival: EMS: [facility] patino 11:52 Acuity: NI 3 patino Triage Assessment: 11:53 General: Appears in no apparent distress. Behavior is calm, cooperative. Pain: Denies patino pain. Historical: - Allergies: 11:53 Ciprofloxacin HCl; patino 11:53 Iodinated Contrast Media - IV Dye; patino 11:53 PENICILLINS; patino - Home Meds: 11:53 alprazolam 0.25 mg Oral tab nightly for Anxiety with Depression [Active]; amlodipine 10 patino mg tab 1 tab once daily for Hypertension [Active]; Centrum Silver Oral daily [Active]; citalopram 10 mg tab 1 tab once daily for Anxiety with Depression [Active]; clonidine HCl 0.1 mg Oral tab as needed [Active]; Crestor 40 mg Oral tab 1 tab nightly for Hypercholesterolemia [Active]; finasteride 5 mg Oral tab 1 tab nightly for Symptomatic Benign Prostatic Hyperplasia [Active]; furosemide 40 mg Oral tab 1 tab once daily [Active]; gabapentin 300 mg Oral cap twice a day for Neuropathic Pain [Active]; Isosorbide Mononitrate Oral [Active]; levothyroxine 100 mcg tab 1 tab once daily for Hypothyroidism [Active]; Nitrostat 0.4 mg SL subl 1 tab [Active]; omeprazole 40 mg Oral cpDR 1 cap once daily for Gastroesophageal reflux [Active]; rosuvastatin Oral [Active]; sotalol 120 mg Oral tab 1 tab 2 times per day [Active]; sotalol Oral 2 times per day [Active]; Xarelto 20 mg Oral tab 1 tab nightly [Active]; - PMHx: 11:53 ATHEROSCLEROSIS; BPH; Cholelithiasis; GERD; High Cholesterol; Hypertension; patino Hypothyroidism; - PSHx: 11:53 Coronary artery bypass graft; patino - Immunization history:: Adult Immunizations up to date. - Social history:: Smoking status: Patient denies any tobacco usage or history of. Patient/guardian denies using alcohol, street drugs, The patient lives with family. - Family history:: not pertinent. Screenin:55 Abuse screen: Denies threats or abuse. Denies injuries from another. Nutritional patino screening: No deficits noted. Tuberculosis screening: No symptoms or risk factors identified. Fall Risk None identified. Assessment: 11:56 General:. GI: Reports diarrhea, bloody stool. patino 13:20 Reassessment: Patient appears in no apparent distress at this time. Patient and/or ph family updated on plan of care and expected duration. Pain level reassessed. Patient is alert, oriented x 3, equal unlabored respirations, skin warm/dry/pink. Pt states that he does not recall what his reaction is to IV contrast, pt premedicated for allergy and accompanied to CT by RN. 13:37 Reassessment: Patient appears in no apparent distress at this time. Patient and/or ph family updated on plan of care and expected duration. Pain level reassessed. Patient is alert, oriented x 3, equal unlabored respirations, skin warm/dry/pink. Pt tolerated CT well, denies itching, SOB, or throat discomfort, no hives noted. Vital Signs: 11:52 BP 189 / 71; Pulse 71; Resp 18; Temp 98.6; Pulse Ox 98% ; Weight 81.65 kg; Height 5 ft. patino 6 in. (167.64 cm); 12:45 BP 187 / 86; Pulse 64; Resp 16; Pulse Ox 98% on R/A; ph 13:47 BP 167 / 81; Pulse 65; Resp 18; Pulse Ox 96% on R/A; ph 11:52 Body Mass Index 29.05 (81.65 kg, 167.64 cm) patino ED Course: 11:52 Patient arrived in ED. patino 11:53 Triage completed. patino 11:53 Arm band placed on. patino 11:55 Nellie Garcia, RN is Primary Nurse. patino 11:55 Patient has correct armband on for positive identification. Bed in low position. patino 11:55 No provider procedures requiring assistance completed. patino 11:56 Alice Wiggins MD is Attending Physician. ma2 13:29 CT Abd/Pelvis - IV Contrast Only In Process Unspecified. EDMS 14:16 Lasha Bearden MD is Referral Physician. ma2 14:53 IV discontinued, intact, bleeding controlled, No redness/swelling at site. Pressure ss dressing applied. Administered Medications: 12:12 Drug: NS 0.9% 1000 ml Route: IV; Rate: 1000 ml; Site: left antecubital; patino 12:20 Drug: Zofran (Ondansetron) 4 mg Route: IVP; Site: left forearm; ph 12:28 Drug: morphine 4 mg Route: IVP; Infused Over: 4 mins; Site: left forearm; ph 13:20 Drug: Benadryl (diphenhydrAMINE) 25 mg Route: IVP; Site: left forearm; ph 13:20 Drug: MethylPrednisoLONE 125 mg Route: IVP; Site: left forearm; ph Medication: 11:55 VIS not applicable for this client. Outcome: 14:14 Discharge ordered by . [facility] 14:53 Discharged to home via wheelchair, with family. 14:53 Condition: good 14:53 Discharge instructions given to patient, family, Instructed on discharge instructions, follow up and referral plans. medication usage, Demonstrated understanding of instructions, follow-up care, medications, Prescriptions given X 3. 14:54 Patient left the ED. ss Signatures: Dispatcher [employer] EDMT Janine Anaya RN RN Trudy Egan RN RN Alice Wiggins MD MD [facility] Nellie Garcia RN RN
--- NOTE | 2022-04-14 14:15 | EDPHYS ---
Physician Documentation [facility] Name: Thomas Glass Jr Age: 86 yrs Sex: Male : 1935 Arrival Date: 04/14/2022 Time: 11:52 Bed 7 Private MD: ED Physician Alice Wiggins HPI: 04/14 14:12 This 86 yrs old Male presents to ER via EMS with complaints of Diarrhea. ma2 14:12 The patient presents to the emergency department with diarrhea. Onset: The ma2 symptoms/episode began/occurred gradually, 2 week(s) ago. 14:12 Associated signs and symptoms: Pertinent negatives: belching, dysuria, flatulence, GI ma2 bleeding, nausea, vomiting. Severity of symptoms: At their worst the symptoms were mild in the emergency department the symptoms are unchanged. Historical: - Allergies: 11:53 Ciprofloxacin HCl; patino 11:53 Iodinated Contrast Media - IV Dye; patino 11:53 PENICILLINS; patino - Home Meds: 11:53 alprazolam 0.25 mg Oral tab nightly for Anxiety with Depression [Active]; amlodipine 10 patino mg tab 1 tab once daily for Hypertension [Active]; Centrum Silver Oral daily [Active]; citalopram 10 mg tab 1 tab once daily for Anxiety with Depression [Active]; clonidine HCl 0.1 mg Oral tab as needed [Active]; Crestor 40 mg Oral tab 1 tab nightly for Hypercholesterolemia [Active]; finasteride 5 mg Oral tab 1 tab nightly for Symptomatic Benign Prostatic Hyperplasia [Active]; furosemide 40 mg Oral tab 1 tab once daily [Active]; gabapentin 300 mg Oral cap twice a day for Neuropathic Pain [Active]; Isosorbide Mononitrate Oral [Active]; levothyroxine 100 mcg tab 1 tab once daily for Hypothyroidism [Active]; Nitrostat 0.4 mg SL subl 1 tab [Active]; omeprazole 40 mg Oral cpDR 1 cap once daily for Gastroesophageal reflux [Active]; rosuvastatin Oral [Active]; sotalol 120 mg Oral tab 1 tab 2 times per day [Active]; sotalol Oral 2 times per day [Active]; Xarelto 20 mg Oral tab 1 tab nightly [Active]; - PMHx: 11:53 ATHEROSCLEROSIS; BPH; Cholelithiasis; GERD; High Cholesterol; Hypertension; patino Hypothyroidism; - PSHx: 11:53 Coronary artery bypass graft; patino - Immunization history:: Adult Immunizations up to date. - Social history:: Smoking status: Patient denies any tobacco usage or history of. Patient/guardian denies using alcohol, street drugs, The patient lives with family. - Family history:: not pertinent. ROS: 14:12 Constitutional: Negative for fever, chills, and weight loss. ma2 14:12 All other systems are negative. Exam: 14:12 Constitutional: This is a well developed, well nourished patient who is awake, alert, ma2 and in no acute distress. Head/Face: Normocephalic, atraumatic. Eyes: Pupils equal round and reactive to light, extra-ocular motions intact. Lids and lashes normal. Conjunctiva and sclera are non-icteric and not injected. Cornea within normal limits. Periorbital areas with no swelling, redness, or edema. ENT: Nares patent. No nasal discharge, no septal abnormalities noted. Tympanic membranes are normal and external auditory canals are clear. Oropharynx with no redness, swelling, or masses, exudates, or evidence of obstruction, uvula midline. Mucous membranes moist. Neck: Trachea midline, no thyromegaly or masses palpated, and no cervical lymphadenopathy. Supple, full range of motion without nuchal rigidity, or vertebral point tenderness. No Meningismus. Chest/axilla: Normal chest wall appearance and motion. Nontender with no deformity. No lesions are appreciated. Cardiovascular: Regular rate and rhythm with a normal S1 and S2. No gallops, murmurs, or rubs. Normal PMI, no JVD. No pulse deficits. Respiratory: Lungs have equal breath sounds bilaterally, clear to auscultation and percussion. No rales, rhonchi or wheezes noted. No increased work of breathing, no retractions or nasal flaring. Abdomen/GI: Soft, non-tender, with normal bowel sounds. No distension or tympany. No guarding or rebound. No evidence of tenderness throughout. Back: No spinal tenderness. No costovertebral tenderness. Full range of motion. Skin: Warm, dry with normal turgor. Normal color with no rashes, no lesions, and no evidence of cellulitis. MS/ Extremity: Pulses equal, no cyanosis. Neurovascular intact. Full, normal range of motion. Neuro: Awake and alert, GCS 15, oriented to person, place, time, and situation. Cranial nerves II-XII grossly intact. Motor strength 5/5 in all extremities. Sensory grossly intact. Cerebellar exam normal. Normal gait. Vital Signs: 11:52 BP 189 / 71; Pulse 71; Resp 18; Temp 98.6; Pulse Ox 98% ; Weight 81.65 kg; Height 5 ft. patino 6 in. (167.64 cm); 12:45 BP 187 / 86; Pulse 64; Resp 16; Pulse Ox 98% on R/A; ph 13:47 BP 167 / 81; Pulse 65; Resp 18; Pulse Ox 96% on R/A; ph 11:52 Body Mass Index 29.05 (81.65 kg, 167.64 cm) patino MDM: 11:56 Patient medically screened. ma2 14:12 Differential diagnosis: diverticulitis, viral gastroenteritis, gastroenteritis. Data ma2 reviewed: vital signs, nurses notes. Counseling: I had a detailed discussion with the patient and/or guardian regarding: the historical points, exam findings, and any diagnostic results supporting the discharge/admit diagnosis, the presence of at least one elevated blood pressure reading (>120/80) during this emergency department visit, the need for outpatient follow up. Response to treatment: the patient's symptoms have markedly improved after treatment. 04/14 11:58 Order name: BMP; Complete Time: 13:34 [facility] 04/14 11:58 Order name: CBC with Diff; Complete Time: 12:34 [facility] 04/14 11:58 Order name: Hepatic Function; Complete Time: 13:34 [facility] 04/14 11:58 Order name: Lipase; Complete Time: 13:34 pr04/14 11:58 Order name: CT Abd/Pelvis - IV Contrast Only; Complete Time: 13:49 pr04/14 12:23 Order name: SARS-COV-2 RT PCR (Document "Date of Onset" if Symptomatic); Complete Time: eb 14:20 04/14 11:58 Order name: IV Saline Lock; Complete Time: 12:11 [facility] 04/14 11:58 Order name: Labs collected and sent; Complete Time: 12:11 [facility] 04/14 11:58 Order name: NPO; Complete Time: 12:11 ma2 Administered Medications: 12:12 Drug: NS 0.9% 1000 ml Route: IV; Rate: 1000 ml; Site: left antecubital; patino 12:20 Drug: Zofran (Ondansetron) 4 mg Route: IVP; Site: left forearm; ph 12:28 Drug: morphine 4 mg Route: IVP; Infused Over: 4 mins; Site: left forearm; ph 13:20 Drug: Benadryl (diphenhydrAMINE) 25 mg Route: IVP; Site: left forearm; ph 13:20 Drug: MethylPrednisoLONE 125 mg Route: IVP; Site: left forearm; ph Disposition Summary: 04/14/22 14:14 Discharge Ordered Location: Home ma2 Condition: Stable ma2 Diagnosis - Diarrhea, unspecified ma2 Followup: ma2 - With: Private Physician - When: Tomorrow - Reason: If symptoms return, Continuance of care Followup: ma2 - With: Lasha Bearden MD - When: Tomorrow - Reason: If symptoms return, Continuance of care Discharge Instructions: - Discharge Summary Sheet ma2 - Diarrhea, Adult ma2 Forms: - Medication Reconciliation Form ma2 - Thank You Letter ma2 - Antibiotic Education ma2 - Prescription Opioid Use ma2 Prescriptions: - Flagyl 500 mg Oral Tablet - take 4 tablets by ORAL route one time for 1 day; 4 tablet; Refills: 0, Product ma2 Selection Permitted - Zofran 4 mg Oral Tablet - take 1 tablet by ORAL route every 12 hours As needed; 20 tablet; Refills: 0, ma2 Product Selection Permitted - Cipro 500 mg Oral Tablet - take 1 tablet by ORAL route every 12 hours for 7 days; 14 tablet; Refills: 0, ma2 Product Selection Permitted Signatures: Dispatcher [employer] Trudy Ochoa, RN RN Alice Wiggins MD MD [facility] Nellie Garcia RN RN
[2022-04-14 14:58] VITALS: TEMP 98.6
[2022-04-14 15:04] VITALS: BP 167/81; O2SAT 96
== END 2022-04-14 14:54 | disposition home or self-care (01) ==
LOC: ER 11:50
DX: R19.7 Diarrhea, unspecified (principal); Z88.0 Allergy status to penicillin; Z91.09 Other allergy status, other than to drugs and biological substances; Z88.1 Allergy status to other antibiotic agents; E03.9 Hypothyroidism, unspecified; I10 Essential (primary) hypertension; E78.00 Pure hypercholesterolemia, unspecified; Z20.822 Contact with and (suspected) exposure to COVID-19
CPT/HCPCS: 85025; 80048; 36415; 80076; 83690; 74177; U0003; Q9967; J1200; J7030; J2930; J2405; 96374; 96375; 99284

== ENCOUNTER 2022-08-22 05:43 | Emergency (ER) | payer OTHER ==
--- OUTSIDE RECORDS SUMMARY | 2022-08-22 05:46 | XMS REPORT | Continuity of Care Document ---
:1935 Author Organization [facility] t Address [address] [place] [address] [place] [id number] Care Team Providers Name Role Phone Kirit Justice Attending Clinician Unavailable Kirit Justice Admitting Clinician Unavailable Problems This patient has no known problems. Allergies, Adverse Reactions, Alerts This patient has no known allergies or adverse reactions. Medications This patient has no known medications. Procedures This patient has no known procedures. Encounters Start End Encounter Admission Attending Care Care Encounter Source Date/Time Date/Time Type Type Clinicians Facility Department ID 2022-07-[address] [facility] [id number] Common 13:32:01 Kirit [id number] [facility] Results This patient has no known results.
[2022-08-22] MEDS ORDERED: ASPIRIN 81 MG CHEWABLE TABLET ONE (06:16)
[2022-08-22] MEDS ORDERED: FAMOTIDINE 20 MG/2 ML VIAL IV ONE (06:17)
[2022-08-22 06:24] LABS: Absolute Lymphocytes (CBC) 1.4 K/uL (0.7-4.9); Hematocrit 44.6 % (39.6-49.0); MCV 91.7 fL (80-100); MPV 8.3 fL (7.6-11.3); RBC Red Blood Cell Count 4.86 M/uL (4.33-5.43)
[2022-08-22 06:27] LABS: Protime INR 1.02
[2022-08-22 06:54] LABS: Albumin 3.5 g/dL (3.4-5.0); Bilirubin Direct 0.1 mg/dL (0-0.2); Bilirubin Total 0.6 mg/dL (0.2-1.0); Magnesium 2.2 mg/dL (1.8-2.4); Potassium 3.4 mmol/L (3.5-5.1); Protein, Total 7.5 g/dL (6.4-8.2); Thyroid Stimulating Hormone 2.29 uIU/mL (0.360-3.740); Troponin High Sensitivity 27.2 pg/mL (<58.9)
[2022-08-22 07:17] LABS: SARS-CoV-2 Antigen Rapid Res Negative (Negative)
--- NOTE | 2022-08-22 07:32 | RAD REPORT ---
EXAM DESCRIPTION: RAD - Chest Single View - 08/22/2022 6:01 am CLINICAL HISTORY: CHEST PAIN COMPARISON: Chest Single View dated 10/24/2021; Chest Single View dated 11/29/2020; Chest Single View dated 09/05/2020; Chest Single View dated 06/09/2019; Abdomen Pelvis W Contrast dated 04/14/2022 FINDINGS: Lines: None. Lungs: No evidence of edema or pneumonia. Similar appearance of the chest compared with 10/16/2021 an d 12/19/2020. The left lung base remains partially obscured. Pleural: No significant pleural effusions or pneumothorax. Cardiac: Similar size and configuration. Sternotomy. Mediastinum: Within normal limits. Bones: No acute fractures. Other: None IMPRESSION: No acute cardiopulmonary disease.
--- NOTE | 2022-08-22 07:34 | RAD REPORT ---
EXAM DESCRIPTION: CT - Thorax Wo Con - 08/22/2022 7:18 am CLINICAL HISTORY: pna COMPARISON: Chest Abd Pelvis Wo Con dated 06/01/2016; CT CHEST ABD PELVIS WO CONT dated 01/01/2015; CT C HEST ABD PELVIS WO CONT dated 01/05/2013; Chest Single View dated 08/22/2022 FINDINGS: Chest Wall: No suspicious thyroid nodules or pathologic lymphadenopathy. Lungs: No acute abnormality. Pleura: No significant effusions or pneumothorax. Mediastinum/keith: No pathologic lymphadenopathy. Pulmonary arteries/Aorta: Limited evaluation without contrast. No aortic aneurysm. Heart: No significant pericardial effusion. Normal heart size. Multi-vessel coronary artery disease. Aortic valve calcifications. Sternotomy. Upper abdomen: No acute abnormality. Bones: No acute abnormality. All CT scans are performed using dose optimization technique as appropriate and may include automated exposure control or mA/KV adjustment according to patient size. IMPRESSION: No acute findings in the chest.
--- NOTE | 2022-08-22 07:36 | ER ---
Nurse's Notes [facility] Name: Thomas Glass Jr Age: 86 yrs Sex: Male : 1935 Arrival Date: 08/22/2022 Time: 05:45 Bed 13 Private MD: Diagnosis: Palpitations;Paroxysmal atrial fibrillation;Hypokalemia Presentation: 08/22 05:48 Chief complaint: EMS states: "Pt stated he woke up with palpitations and abnormal vc1 breathing. He said my heart just doesn't feel right. No c/o pain, no c/o SOB.". Coronavirus screen: Vaccine status: Patient reports receiving the 2nd dose of the covid vaccine. 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 Ebola Screen: No symptoms or risks identified at this time. Initial Sepsis Screen: Does the patient meet any 2 criteria? No. Patient's initial sepsis screen is negative. Does the patient have a suspected source of infection? No. Patient's initial sepsis screen is negative. Risk Assessment: Do you want to hurt yourself or someone else? Patient reports no desire to harm self or others. Onset of symptoms was August 22, 2022. 05:48 Method Of Arrival: EMS: [facility] vc1 05:48 Acuity: NI 3 vc1 Triage Assessment: 05:51 General: Appears in no apparent distress. Behavior is calm, cooperative, appropriate vc1 for age. Pain: Denies pain. EENT: No deficits noted. Neuro: Level of Consciousness is awake, Oriented to person, place, time, situation. Cardiovascular: Reports palpitations, Denies chest pain, shortness of breath. Respiratory: Airway is patent Respiratory effort is even, unlabored, Respiratory pattern is regular, symmetrical. GI: No deficits noted. : No deficits noted. Derm: No deficits noted. Musculoskeletal: No deficits noted. Historical: - Allergies: 05:51 Ciprofloxacin HCl; vc1 05:51 Iodinated Contrast Media - IV Dye; vc1 05:51 PENICILLINS; vc1 - Home Meds: 05:51 alprazolam 0.25 mg Oral tab nightly for Anxiety with Depression [Active]; amlodipine 10 vc1 mg tab 1 tab once daily for Hypertension [Active]; Centrum Silver Oral daily [Active]; citalopram 10 mg tab 1 tab once daily for Anxiety with Depression [Active]; clonidine HCl 0.1 mg Oral tab as needed [Active]; Crestor 40 mg Oral tab 1 tab nightly for Hypercholesterolemia [Active]; finasteride 5 mg Oral tab 1 tab nightly for Symptomatic Benign Prostatic Hyperplasia [Active]; furosemide 40 mg Oral tab 1 tab once daily [Active]; gabapentin 300 mg Oral cap twice a day for Neuropathic Pain [Active]; Isosorbide Mononitrate Oral [Active]; levothyroxine 100 mcg tab 1 tab once daily for Hypothyroidism [Active]; Nitrostat 0.4 mg SL subl 1 tab [Active]; omeprazole 40 mg Oral cpDR 1 cap once daily for Gastroesophageal reflux [Active]; rosuvastatin Oral [Active]; sotalol 120 mg Oral tab 1 tab 2 times per day [Active]; sotalol Oral 2 times per day [Active]; Xarelto 20 mg Oral tab 1 tab nightly [Active]; - PMHx: 05:51 ATHEROSCLEROSIS; BPH; Cholelithiasis; GERD; High Cholesterol; Hypertension; vc1 Hypothyroidism; - PSHx: 05:51 Coronary artery bypass graft; vc1 - Immunization history:: Client reports receiving the 2nd dose of the Covid vaccine. - Social history:: Smoking status: Patient denies any tobacco usage or history of. - Family history:: not pertinent. Screenin:54 Abuse screen: Denies threats or abuse. Nutritional screening: No deficits noted. vc1 Tuberculosis screening: No symptoms or risk factors identified. Fall Risk None identified. Assessment: 05:45 General: Appears Behavior is calm, cooperative. Pain: Denies pain. Neuro: Level of ha1 Consciousness is awake, alert, obeys commands, Oriented to person, place, time, situation. Cardiovascular: Reports palpitations, Heart tones S1 S2 Capillary refill < 3 seconds Patient's skin is warm and dry. Rhythm is sinus rhythm. Respiratory: Airway is patent Trachea midline Respiratory effort is even, unlabored, Respiratory pattern is regular, symmetrical. GI: No signs and/or symptoms were reported involving the gastrointestinal system. Abdomen is flat, non-distended, Bowel sounds present X 4 quads. : No signs and/or symptoms were reported regarding the genitourinary system. Derm: Skin is pink, warm \\T\\ dry. 06:45 Reassessment: Patient and/or family updated on plan of care and expected duration. Pain ha1 level reassessed. Patient is alert, oriented x 3, equal unlabored respirations, skin warm/dry/pink. Vital Signs: 05:45 BP 154 / 79; Pulse 81; Resp 15; Pulse Ox 96% on R/A; ha1 05:48 BP 154 / 79; Pulse 81; Resp 14; Pulse Ox 96% on R/A; Weight 81.65 kg; Height 5 ft. 7 vc1 in. (170.18 cm); Pain 0/10; 06:20 BP 144 / 70; Pulse 69; Resp 16 S; Pulse Ox 96% on R/A; ha1 08:20 BP 162 / 82; Pulse 62; Pulse Ox 98% ; ap3 05:48 Body Mass Index 28.19 (81.65 kg, 170.18 cm) vc1 ED Course: 05:45 Patient arrived in ED. rivka 05:45 Buddy Mccall MD is Attending Physician. rivka 05:50 Triage completed. vc1 05:51 Shannon Stanton, RN is Primary Nurse. ha1 05:54 Arm band placed on left wrist. vc1 05:54 Patient has correct armband on for positive identification. Bed in low position. Call vc1 light in reach. Side rails up X2. Client placed on continuous cardiac and pulse oximetry monitoring. NIBP monitoring applied. 05:58 EKG done, by ED staff, reviewed by Buddy Mccall MD. jw7 06:03 XRAY Chest (1 view) In Process Unspecified. EDMS 06:13 Initial lab(s) drawn, by ia, sent to lab. Inserted saline lock: 20 gauge in left jw7 forearm, using aseptic technique. Blood collected. 06:59 SARS RAPID Sent. oe 07:05 SARS RAPID Sent. ha1 07:20 Thorax Wo Con In Process Unspecified. EDMS 07:36 Toni Miranda MD is Referral Physician. rivka 08:19 No provider procedures requiring assistance completed. IV discontinued, intact, ap3 bleeding controlled, No redness/swelling at site. Pressure dressing applied. Administered Medications: 06:18 Drug: Aspirin Chewable Tablet 162 mg Route: PO; ha1 08:20 Follow up: Response: No adverse reaction ap3 06:20 Drug: Pepcid (famotidine) 20 mg Route: IVP; Site: left forearm; ha1 06:40 Follow up: Response: No adverse reaction ha1 07:51 Drug: Potassium Effervescent Tablet 25 mEq Route: PO; ap3 08:20 Follow up: Response: No adverse reaction ap3 Medication: 05:54 VIS not applicable for this client. vc1 Outcome: 07:36 Discharge ordered by . rivka 08:20 Discharged to [facility]. ap3 08:20 Condition: good 08:20 Discharge instructions given to patient, Instructed on discharge instructions, follow up and referral plans. Demonstrated understanding of instructions, follow-up care. 08:51 Patient left the ED. kv1 Signatures: Dispatcher [employer] EDMS Buddy Mccall MD MD cha Espinosa, [place] oe Prokisch, Amanda RN RN ap3 Dany Sousa kv1 Buffy Nava RN RN vc1 Bárbara [id number] Shannon Stanton RN RN ha1
--- NOTE | 2022-08-22 07:36 | EDPHYS ---
Physician Documentation [facility] Name: Thomas Glass Jr Age: 86 yrs Sex: Male : 1935 Arrival Date: 08/22/2022 Time: 05:45 Bed 13 Private MD: ED Physician Buddy Mccall HPI: 08/22 06:13 This 86 yrs old Male presents to ER via EMS with complaints of palpitations. rivka 06:13 The patient presents with a history of heart racing. Context: The symptoms occur at rivka rest, during sleep. Onset: The symptoms/episode began/occurred just prior to arrival. Duration: The patient or guardian reports a single episode, that is now resolved. Modifying factors: The symptoms are aggravated by nothing. The symptoms are alleviated by nothing. Associated signs and symptoms: The patient has no apparent associated signs or symptoms. Severity of symptoms: At their worst the symptoms were mild in the emergency department the symptoms are unchanged. The patient has not experienced similar symptoms in the past. Historical: - Allergies: 05:51 Ciprofloxacin HCl; vc1 05:51 Iodinated Contrast Media - IV Dye; vc1 05:51 PENICILLINS; vc1 - Home Meds: 05:51 alprazolam 0.25 mg Oral tab nightly for Anxiety with Depression [Active]; amlodipine 10 vc1 mg tab 1 tab once daily for Hypertension [Active]; Centrum Silver Oral daily [Active]; citalopram 10 mg tab 1 tab once daily for Anxiety with Depression [Active]; clonidine HCl 0.1 mg Oral tab as needed [Active]; Crestor 40 mg Oral tab 1 tab nightly for Hypercholesterolemia [Active]; finasteride 5 mg Oral tab 1 tab nightly for Symptomatic Benign Prostatic Hyperplasia [Active]; furosemide 40 mg Oral tab 1 tab once daily [Active]; gabapentin 300 mg Oral cap twice a day for Neuropathic Pain [Active]; Isosorbide Mononitrate Oral [Active]; levothyroxine 100 mcg tab 1 tab once daily for Hypothyroidism [Active]; Nitrostat 0.4 mg SL subl 1 tab [Active]; omeprazole 40 mg Oral cpDR 1 cap once daily for Gastroesophageal reflux [Active]; rosuvastatin Oral [Active]; sotalol 120 mg Oral tab 1 tab 2 times per day [Active]; sotalol Oral 2 times per day [Active]; Xarelto 20 mg Oral tab 1 tab nightly [Active]; - PMHx: 05:51 ATHEROSCLEROSIS; BPH; Cholelithiasis; GERD; High Cholesterol; Hypertension; vc1 Hypothyroidism; - PSHx: 05:51 Coronary artery bypass graft; vc1 - Immunization history:: Client reports receiving the 2nd dose of the Covid vaccine. - Social history:: Smoking status: Patient denies any tobacco usage or history of. - Family history:: not pertinent. ROS: 06:13 Constitutional: Negative for fever, chills, and weight loss, Eyes: Negative for injury, rivka pain, redness, and discharge, ENT: Negative for injury, pain, and discharge, Neck: Negative for injury, pain, and swelling, Respiratory: Negative for shortness of breath, cough, wheezing, and pleuritic chest pain, Abdomen/GI: Negative for abdominal pain, nausea, vomiting, diarrhea, and constipation, Back: Negative for injury and pain, : Negative for injury, bleeding, discharge, and swelling, MS/Extremity: Negative for injury and deformity, Skin: Negative for injury, rash, and discoloration, Neuro: Negative for headache, weakness, numbness, tingling, and seizure, Psych: Negative for depression, anxiety, suicide ideation, homicidal ideation, and hallucinations, Allergy/Immunology: Negative for hives, rash, and allergies, Endocrine: Negative for neck swelling, polydipsia, polyuria, polyphagia, and marked weight changes, Hematologic/Lymphatic: Negative for swollen nodes, abnormal bleeding, and unusual bruising. 06:13 Cardiovascular: Positive for chest pain, palpitations. Exam: 06:13 Constitutional: This is a well developed, well nourished patient who is awake, alert, rivka and in no acute distress. Head/Face: Normocephalic, atraumatic. Eyes: Pupils equal round and reactive to light, extra-ocular motions intact. Lids and lashes normal. Conjunctiva and sclera are non-icteric and not injected. Cornea within normal limits. Periorbital areas with no swelling, redness, or edema. ENT: Nares patent. No nasal discharge, no septal abnormalities noted. Tympanic membranes are normal and external auditory canals are clear. Oropharynx with no redness, swelling, or masses, exudates, or evidence of obstruction, uvula midline. Mucous membranes moist. Neck: Trachea midline, no thyromegaly or masses palpated, and no cervical lymphadenopathy. Supple, full range of motion without nuchal rigidity, or vertebral point tenderness. No Meningismus. Chest/axilla: Normal chest wall appearance and motion. Nontender with no deformity. No lesions are appreciated. Cardiovascular: Regular rate and rhythm with a normal S1 and S2. No gallops, murmurs, or rubs. Normal PMI, no JVD. No pulse deficits. Respiratory: Lungs have equal breath sounds bilaterally, clear to auscultation and percussion. No rales, rhonchi or wheezes noted. No increased work of breathing, no retractions or nasal flaring. Abdomen/GI: Soft, non-tender, with normal bowel sounds. No distension or tympany. No guarding or rebound. No evidence of tenderness throughout. Back: No spinal tenderness. No costovertebral tenderness. Full range of motion. Male : Normal genitalia with no discharge or lesions. Skin: Warm, dry with normal turgor. Normal color with no rashes, no lesions, and no evidence of cellulitis. MS/ Extremity: Pulses equal, no cyanosis. Neurovascular intact. Full, normal range of motion. Neuro: Awake and alert, GCS 15, oriented to person, place, time, and situation. Cranial nerves II-XII grossly intact. Motor strength 5/5 in all extremities. Sensory grossly intact. Cerebellar exam normal. Normal gait. Psych: Awake, alert, with orientation to person, place and time. Behavior, mood, and affect are within normal limits. 06:13 ECG was reviewed by the Attending Physician. Vital Signs: 05:45 BP 154 / 79; Pulse 81; Resp 15; Pulse Ox 96% on R/A; ha1 05:48 BP 154 / 79; Pulse 81; Resp 14; Pulse Ox 96% on R/A; Weight 81.65 kg; Height 5 ft. 7 vc1 in. (170.18 cm); Pain 0/10; 06:20 BP 144 / 70; Pulse 69; Resp 16 S; Pulse Ox 96% on R/A; ha1 08:20 BP 162 / 82; Pulse 62; Pulse Ox 98% ; ap3 05:48 Body Mass Index 28.19 (81.65 kg, 170.18 cm) vc1 MDM: 05:45 Patient medically screened. rivka 06:16 Differential diagnosis: arrythmia, dehydration, stress disorder. Data reviewed: vital rivka signs, nurses notes, lab test result(s), EKG, radiologic studies, CT scan. Data interpreted: monitoring manager: rate is 81 beats/min, rhythm is atrial fibrillation. Test interpretation: by ED physician or midlevel provider: ECG, plain radiologic studies. 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 08/22 05:47 Order name: Basic Metabolic Panel; Complete Time: 07:34 [facility] 08/22 05:47 Order name: CBC with Diff; Complete Time: 06:35 rivka 08/22 05:47 Order name: LFT's; Complete Time: 07:34 rivka 08/22 05:47 Order name: Magnesium; Complete Time: 07:34 08/22 05:47 Order name: NT PRO-BNP; Complete Time: 07:34 [facility] 08/22 05:47 Order name: PT-INR; Complete Time: 06:35 08/22 05:47 Order name: Troponin HS; Complete Time: 07:34 rivka 08/22 05:47 Order name: XRAY Chest (1 view); Complete Time: 07:34 rivka 08/22 05:47 Order name: Lipase; Complete Time: 07:34 rivka 08/22 05:47 Order name: SARS RAPID; Complete Time: 07:34 rivka 08/22 05:47 Order name: TSH; Complete Time: 07:34 [facility] 08/22 06:36 Order name: CT Chest Wo Con rivka 08/22 06:40 Order name: Thorax Wo Con EDIN 08/22 05:47 Order name: EKG; Complete Time: 05:48 rivka 08/22 05:47 Order name: Cardiac monitoring; Complete Time: 06:14 [facility] 08/22 05:47 Order name: EKG - Nurse/Tech; Complete Time: 06:14 [facility] 08/22 05:47 Order name: IV Saline Lock; Complete Time: 06:14 [facility] 08/22 05:47 Order name: Labs collected and sent; Complete Time: 06:14 [facility] 08/22 05:47 Order name: O2 Per Protocol; Complete Time: 06:14 [facility] 08/22 05:47 Order name: O2 Sat Monitoring; Complete Time: 06:14 rivka EC:13 Rate is 73 beats/min. Rhythm is regular. QRS [place] is Normal. [place] interval is normal. QRS rivka interval is normal. QT interval is normal. No Q waves. T waves are Normal. No ST changes noted. Clinical impression: Normal ECG and No evidence of ischemia. Interpreted by me. Reviewed by me. Administered Medications: 06:18 Drug: Aspirin Chewable Tablet 162 mg Route: PO; ha1 08:20 Follow up: Response: No adverse reaction ap3 06:20 Drug: Pepcid (famotidine) 20 mg Route: IVP; Site: left forearm; ha1 06:40 Follow up: Response: No adverse reaction ha1 07:51 Drug: Potassium Effervescent Tablet 25 mEq Route: PO; ap3 08:20 Follow up: Response: No adverse reaction ap3 Disposition Summary: 08/22/22 07:36 Discharge Ordered Location: Home rivka Problem: new rivka Symptoms: have improved rivka Condition: Stable rivka Diagnosis - Palpitations rivka - Paroxysmal atrial fibrillation rivka - Hypokalemia rivka Followup: rivka - With: Private Physician - When: 2 - 3 days - Reason: Recheck today's complaints, Continuance of care, Re-evaluation by your physician Followup: rivka - With: - When: 2 - 3 days - Reason: Recheck today's complaints, Continuance of care, Re-evaluation by your physician Discharge Instructions: - Discharge Summary Sheet rivka - Atrial Fibrillation rivka - Palpitations rivka - Palpitations, [id number]-[id number] rivka - Atrial Fibrillation, Qpym-za-[id number] rivka - Potassium Content of Foods rivka - Hypokalemia rivka Forms: - Medication Reconciliation Form rivka - Thank You Letter rivka - Antibiotic Education rivka - Prescription Opioid Use rivka Signatures: Dispatcher [employer] EDBuddy Lu MD MD cha Prokisch, Amanda RN RN ap3 Buffy Nava RN RN vc1 Shannon Stanton RN RN ha1 Corrections: (The following items were deleted from the chart) 08:21 05:47 Urine Dipstick-Ancillary ordered. rivka ap3
[2022-08-22] MEDS ORDERED: POTASSIUM 25 MEQ EFFERV TAB ONE (07:44)
[2022-08-22 09:15] VITALS: BP 162/82; O2SAT 98
--- NOTE | 2022-08-22 13:06 | EKG ---
Test Date: 2022-08-22 Test Time: 05:48:07 [place] Tender: SOCAR MEASUREMENT RESULTS: Intervals: Rate: 73 TN: 202 QRSD: 86 QT: 416 QTc: 458 [place]: P: -2 TN: 202 QRS: 43 T: 63 INTERPRETIVE STATEMENTS: Normal sinus rhythm Normal ECG Compared to ECG 10/24/2021 12:38:24 T-wave abnormality no longer present Electronically Signed On 08-22-22 13:06:05 CDT by Tay Mansfield
== END 2022-08-22 08:51 | disposition home or self-care (01) ==
LOC: ER 05:43
DX: I48.0 Paroxysmal atrial fibrillation (principal); E87.6 Hypokalemia; Z20.822 Contact with and (suspected) exposure to COVID-19; I10 Essential (primary) hypertension; E03.9 Hypothyroidism, unspecified; Z79.01 Long term (current) use of anticoagulants; Z95.1 Presence of aortocoronary bypass graft; Z88.0 Allergy status to penicillin; Z88.1 Allergy status to other antibiotic agents; Z91.041 Radiographic dye allergy status
CPT/HCPCS: 36415; 71045; 71250; 80048; 80076; 83690; 83735; 83880; 84443; 84484; 85025; 85610; 87811; 93005; 96374; 99284

== ENCOUNTER 2022-10-03 14:38 | Emergency (ER) | payer OTHER ==
--- OUTSIDE RECORDS SUMMARY | 2022-10-03 14:41 | XMS REPORT | Continuity of Care Document ---
:1935 Author Organization [facility] Address [address] [place] [address] Dr. Childress [address] [place] [id number] Care Team Providers Name Role Phone Kirit [...] Facility Department ID 2022-07-05 Outpatient SHAKIR Justice [facility] [id number] Common 13:32:01 Kirit [id number] [facility] Results This patient has no known results.
[2022-10-03 15:34] LABS: Absolute Lymphocytes (CBC) 1.7 K/uL (0.7-4.9); Hematocrit 37.4 % (39.6-49.0); Lymphocytes % 34.6 % (15.3-44.8); MCV 91.8 fL (80-100); RBC Red Blood Cell Count 4.07 M/uL (4.33-5.43)
[2022-10-03 15:35] LABS: Protime INR 1.01
[2022-10-03 15:52] LABS: Potassium 3.5 mmol/L (3.5-5.1); Troponin High Sensitivity 10.3 pg/mL (<58.9)
--- NOTE | 2022-10-03 15:59 | RAD REPORT ---
EXAM DESCRIPTION: CT - Chest Abd Pelvis Wo Con - 10/03/2022 3:36 pm CLINICAL HISTORY: HTN, chest painabdominal pain COMPARISON: <Comparisons>CT chest 08/22/2022, CT aortic dissection study 06/01/2016 TECHNIQUE: During dynamic enhancement using 100 milliliters nonionic IV contrast, axial 5 millimeter thick images of the chest, abdomen and pelvis were obtained. Biphasic technique was utilized through the abdomen. Oral contrast was administered. All CT scans are performed using dose optimization technique as appropriate and may include automated exposure control or mA/KV adjustment according to patient size. FINDINGS: The lungs are clear of mass and infiltrate. No pneumothorax or pleural effusion. No ches t wall mass or abnormal axillary lymphadenopathy seen. Mediastinal and hilar regions show no mass or lymphadenopathy. No cardiomegaly or pericardial effusion. Dense aortic and coronary artery calcific ations are present. The liver, spleen and pancreas show no significant findings. Gallbladder is absent. No abnormal bili [place] tree dilatation. No hydronephrosis or suspicious renal mass. A 4 centimeter simple cyst is present upper pole left kid eladio. No adrenal abnormalities. No urinary bladder abnormalities. No dilated bowel loops or focal ball bowel wall thickening. Patient has very prominent sigmoid divert iculosis without diverticulitis. No acute or active GI process seen. No free air, free fluid or infla mmatory stranding. No hernia, mass or bulky lymphadenopathy. Aortoiliac atherosclerotic calcifications are present. Dense renal artery and mesenteric calcificatio ns are also present. Bowel ischemia is not identified. Disc and bone degenerative changes are present. Surgical hardware spans the lower 3 levels. IMPRESSION: CT chest imaging shows no mass, lymphadenopathy or other emergent finding. Nonacute findings detailed in the body of the report. CT abdomen and pelvis imaging shows no significant or suspicious finding.
--- NOTE | 2022-10-03 16:22 | RAD REPORT ---
EXAM DESCRIPTION: RAD - Chest Single View - 10/03/2022 4:12 pm CLINICAL HISTORY: CHEST PAIN COMPARISON: Portable 08/22/2022 TECHNIQUE: AP portable chest image was obtained 10/03/2022 4:12 pm . FINDINGS: Lung volumes are low. Interstitial markings are prominent but not clearly different from c omparison. Increased haziness over the lower left lung field matches comparison. This is probably per icardial fat and scarring related to CABG surgical change. Sternotomy wires are in place. Heart size is stable. No acute vascular engorgement. No measurable pleural effusion and no pneumotho rax. No acute bony abnormality seen. No acute aortic findings suspected. IMPRESSION: No acute cardiopulmonary process.
--- NOTE | 2022-10-03 16:36 | EDPHYS ---
Physician Documentation [facility] Name: Thomas Glass Jr Age: 86 yrs Sex: Male : 1935 Arrival Date: 10/03/2022 Time: 14:47 Bed 23 Private MD: ED Physician Bob Case HPI: 10/03 16:03 This 86 yrs old Male presents to ER via EMS with complaints of high blood pressure. rn 16:03 The patient has shortness of breath at rest. Onset: The symptoms/episode began/occurred rn today. Duration: The symptoms are continuous, but are markedly better than the original presentation. The patient's shortness of breath is aggravated by nothing, is alleviated by prescription meds. Associated signs and symptoms: Pertinent negatives: chest pain, non-productive cough, productive cough, fever, hemoptysis. Severity of symptoms: At their worst the symptoms were moderate in the emergency department the symptoms have improved. The patient has experienced similar episodes in the past. The patient has not recently seen a physician. Pt reports felt fine, took a nap, woke up from nap with sob and high blood pressure, took an extra dose of clonidine prior to coming in and now improved. No chest pain. . Historical: - Allergies: 14:51 Ciprofloxacin HCl; em6 14:51 Iodinated Contrast Media - IV Dye; em6 14:51 PENICILLINS; em6 - Home Meds: 14:51 alprazolam 0.25 mg Oral tab nightly for Anxiety with Depression [Active]; amlodipine 10 em6 mg tab 1 tab once daily for Hypertension [Active]; Centrum Silver Oral daily [Active]; citalopram 10 mg tab 1 tab once daily for Anxiety with Depression [Active]; clonidine HCl 0.1 mg Oral tab as needed [Active]; Crestor 40 mg Oral tab 1 tab nightly for Hypercholesterolemia [Active]; finasteride 5 mg Oral tab 1 tab nightly for Symptomatic Benign Prostatic Hyperplasia [Active]; furosemide 40 mg Oral tab 1 tab once daily [Active]; gabapentin 300 mg Oral cap twice a day for Neuropathic Pain [Active]; Isosorbide Mononitrate Oral [Active]; levothyroxine 100 mcg tab 1 tab once daily for Hypothyroidism [Active]; Nitrostat 0.4 mg SL subl 1 tab [Active]; omeprazole 40 mg Oral cpDR 1 cap once daily for Gastroesophageal reflux [Active]; rosuvastatin Oral [Active]; sotalol 120 mg Oral tab 1 tab 2 times per day [Active]; sotalol Oral 2 times per day [Active]; Xarelto 20 mg Oral tab 1 tab nightly [Active]; - PMHx: 14:51 ATHEROSCLEROSIS; BPH; Cholelithiasis; GERD; High Cholesterol; Hypertension; em6 Hypothyroidism; - PSHx: 14:51 Coronary artery bypass graft; em6 - Immunization history:: Adult Immunizations up to date. - Social history:: Smoking status: Patient denies any tobacco usage or history of. - Family history:: not pertinent. - Hospitalizations: : No recent hospitalization is reported. ROS: 16:03 Constitutional: Negative for fever, chills, and weight loss, Eyes: Negative for injury, rn pain, redness, and discharge, Neck: Negative for injury, pain, and swelling, Cardiovascular: Negative for chest pain, palpitations, and edema, Respiratory: + sob Abdomen/GI: Negative for abdominal pain, nausea, vomiting, diarrhea, and constipation, Back: Negative for injury and pain, : Negative for injury, bleeding, discharge, and swelling, MS/Extremity: Negative for injury and deformity, Skin: Negative for injury, rash, and discoloration, Neuro: Negative for headache, weakness, numbness, tingling, and seizure. Exam: 16:03 Constitutional: This is a well developed, well nourished patient who is awake, alert, rn and in no acute distress. Head/Face: Normocephalic, atraumatic. Eyes: Periorbital areas with no swelling, redness, or edema. Cardiovascular: Regular rate and rhythm. No pulse deficits. Respiratory: No increased work of breathing, no retractions or nasal flaring. Abdomen/GI: Soft, non-tender Skin: Warm, dry MS/ Extremity: Pulses equal, no cyanosis Neuro: Awake and alert, GCS 15, oriented to person, place, time, and situation. Cranial nerves II-XII grossly intact. Motor strength 5/5 in all extremities. Sensory grossly intact. 16:09 ECG was reviewed by the Attending Physician. rn Vital Signs: 14:48 BP 144 / 88; Pulse 81; Resp 20; Temp 98.1; Pulse Ox 96% on R/A; Weight 86.18 kg; Height em6 5 ft. 6 in. (167.64 cm); Pain 0/10; 16:15 BP 125 / 79; Pulse 77; Resp 20; Pulse Ox 97% on R/A; em6 14:48 Body Mass Index 30.67 (86.18 kg, 167.64 cm) em6 MDM: 14:47 Patient medically screened. rn 16:34 Differential diagnosis: Anxiety Reaction Myocardial Infarction Psychogenic malignant rn HTN, hypertension. Data reviewed: vital signs, nurses notes, lab test result(s), EKG, radiologic studies, CT scan, plain films, and as a result, I will discharge patient. Counseling: I had a detailed discussion with the patient and/or guardian regarding: the historical points, exam findings, and any diagnostic results supporting the discharge/admit diagnosis, lab results, radiology results, the need for outpatient follow up, to return to the emergency department if symptoms worsen or persist or if there are any questions or concerns that arise at home. Response to treatment: the patient's symptoms have markedly improved after treatment, the patient's symptoms have resolved after treatment, the patient's condition has returned to base line, the patient is now symptom free, and as a result, I will discharge patient. Special discussion: I discussed with the patient/guardian in detail that at this point there is no indication for admission to the hospital. It is understood, however, that if the symptoms persist or worsen the patient needs to return immediately for re-evaluation. ED course: No acute findings in blood or imaging to indicate end organ damage from HTN. Will f/u with Dr. Justice and given return precautions. . 10/03 14:56 Order name: Basic Metabolic Panel; Complete Time: 16:02 rn 10/03 14:56 Order name: CBC with Diff; Complete Time: 16:02 rn 10/03 14:56 Order name: NT PRO-BNP; Complete Time: 16:02 rn 10/03 14:56 Order name: PT-INR; Complete Time: 16:02 rn 10/03 14:56 Order name: Troponin HS; Complete Time: 16:02 10/03 14:56 Order name: XRAY Chest (1 view); Complete Time: 16:34 rn 10/03 14:56 Order name: EKG; Complete Time: 14:56 rn 10/03 14:56 Order name: Cardiac monitoring; Complete Time: 15:11 rn 10/03 14:56 Order name: EKG - Nurse/Tech; Complete Time: 15:11 rn 10/03 14:56 Order name: IV Saline Lock; Complete Time: 15:22 rn 10/03 14:56 Order name: Labs collected and sent; Complete Time: 15:11 rn 10/03 14:56 Order name: O2 Per Protocol; Complete Time: 15:11 rn 10/03 15:24 Order name: Chest Abd Pelvis Wo Con; Complete Time: 16:02 EDMS 10/03 14:56 Order name: O2 Sat Monitoring; Complete Time: 15:11 rn EC:09 Rate is 69 beats/min. Rhythm is regular. QRS [place] is Normal. [place] interval is normal. QRS rn interval is normal. QT interval is normal. No Q waves. T waves are Normal. No ST changes noted. Clinical impression: NSR w/ Non-specific ST/T Changes. Interpreted by me. Reviewed by me. Administered Medications: No medications were administered Disposition Summary: 10/03/22 16:36 Discharge Ordered Location: Home rn Problem: an ongoing problem rn Symptoms: have improved rn Condition: Stable rn Diagnosis - Essential (primary) hypertension rn Followup: rn - With: Tracy Justice MD - When: As needed - Reason: Recheck today's complaints, Re-evaluation by your physician Discharge Instructions: - Discharge Summary Sheet rn - Hypertension, Adult rn - How to Take Your Blood Pressure, [id number] rn - Managing Your Hypertension rn Forms: - Medication Reconciliation Form rn - Thank You Letter rn - 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 EDVA EDMS
--- NOTE | 2022-10-03 16:36 | ER ---
Nurse's Notes [facility] Name: Thomas Glass Jr Age: 86 yrs Sex: Male : 1935 Arrival Date: 10/03/2022 Time: 14:47 Bed 23 Private MD: Diagnosis: Essential (primary) hypertension Presentation: 10/03 14:48 Chief complaint: EMS states: " patient was sleeping when he needed to go to the em6 restroom and when he got up he felt shortness of breath. he took his blood pressure and it was 183/100. for us his vitals where stable and normal sinus rhythm. BGL 153. inserted a 20 G right hand". Coronavirus screen: Client denies travel out of the [place] in the last 14 days. Ebola Screen: Patient negative for fever greater than or equal to 101.5 degrees Fahrenheit, and additional compatible Ebola Virus Disease symptoms. Initial Sepsis Screen: Does the patient meet any 2 criteria? No. Patient's initial sepsis screen is negative. Does the patient have a suspected source of infection? No. Patient's initial sepsis screen is negative. Risk Assessment: Do you want to hurt yourself or someone else? Patient reports no desire to harm self or others. Onset of symptoms was October 03, 2022. 14:48 Acuity: NI 3 em6 14:48 Method Of Arrival: EMS em6 Triage Assessment: 14:52 General: Appears in no apparent distress. Respiratory: Reports shortness of breath on em6 exertion Onset: The symptoms/episode began/occurred suddenly, the patient has mild shortness of breath. Historical: - Allergies: 14:51 Ciprofloxacin HCl; em6 14:51 Iodinated Contrast Media - IV Dye; em6 14:51 PENICILLINS; em6 - Home Meds: 14:51 alprazolam 0.25 mg Oral tab nightly for Anxiety with Depression [Active]; amlodipine 10 em6 mg tab 1 tab once daily for Hypertension [Active]; Centrum Silver Oral daily [Active]; citalopram 10 mg tab 1 tab once daily for Anxiety with Depression [Active]; clonidine HCl 0.1 mg Oral tab as needed [Active]; Crestor 40 mg Oral tab 1 tab nightly for Hypercholesterolemia [Active]; finasteride 5 mg Oral tab 1 tab nightly for Symptomatic Benign Prostatic Hyperplasia [Active]; furosemide 40 mg Oral tab 1 tab once daily [Active]; gabapentin 300 mg Oral cap twice a day for Neuropathic Pain [Active]; Isosorbide Mononitrate Oral [Active]; levothyroxine 100 mcg tab 1 tab once daily for Hypothyroidism [Active]; Nitrostat 0.4 mg SL subl 1 tab [Active]; omeprazole 40 mg Oral cpDR 1 cap once daily for Gastroesophageal reflux [Active]; rosuvastatin Oral [Active]; sotalol 120 mg Oral tab 1 tab 2 times per day [Active]; sotalol Oral 2 times per day [Active]; Xarelto 20 mg Oral tab 1 tab nightly [Active]; - PMHx: 14:51 ATHEROSCLEROSIS; BPH; Cholelithiasis; GERD; High Cholesterol; Hypertension; em6 Hypothyroidism; - PSHx: 14:51 Coronary artery bypass graft; em6 - Immunization history:: Adult Immunizations up to date. - Social history:: Smoking status: Patient denies any tobacco usage or history of. - Family history:: not pertinent. - Hospitalizations: : No recent hospitalization is reported. Screenin:48 Abuse screen: Denies threats or abuse. Nutritional screening: No deficits noted. em6 Tuberculosis screening: No symptoms or risk factors identified. Fall Risk IV access (20 points). Gait- Weak (10 pts.). Total Arriola Fall Scale indicates Low Risk Score (25-44 pts). Fall prevention measures have been instituted. Side Rails Up X 2 Placed close to Nursing Station Frequent Obs/Assesments occuring As available Patient and Family Educated on Fall Prevention Program and strategies. Assessment: 14:47 General: Appears in no apparent distress. Behavior is cooperative. Pain: Denies pain. em6 Neuro: Level of Consciousness is awake, alert, obeys commands, Oriented to person, place, time, situation. Cardiovascular: Heart tones present Patient's skin is warm and dry. Rhythm is sinus rhythm. Respiratory: Airway is patent Respiratory effort is even, unlabored, Breath sounds are clear bilaterally. GI: No signs and/or symptoms were reported involving the gastrointestinal system. : No signs and/or symptoms were reported regarding the genitourinary system. EENT: No signs and/or symptoms were reported regarding the EENT system. Derm: No signs and/or symptoms reported regarding the dermatologic system. Musculoskeletal: Circulation, motion, and sensation intact. 15:50 Reassessment: Patient appears in no apparent distress at this time. No changes from em6 previously documented assessment. Patient and/or family updated on plan of care and expected duration. Pain level reassessed. Patient is alert, oriented x 3, equal unlabored respirations, skin warm/dry/pink. 16:52 Reassessment: Patient appears in no apparent distress at this time. No changes from em6 previously documented assessment. Patient and/or family updated on plan of care and expected duration. Pain level reassessed. Patient is alert, oriented x 3, equal unlabored respirations, skin warm/dry/pink. Vital Signs: 14:48 BP 144 / 88; Pulse 81; Resp 20; Temp 98.1; Pulse Ox 96% on R/A; Weight 86.18 kg; Height em6 5 ft. 6 in. (167.64 cm); Pain 0/10; 16:15 BP 125 / 79; Pulse 77; Resp 20; Pulse Ox 97% on R/A; em6 14:48 Body Mass Index 30.67 (86.18 kg, 167.64 cm) em6 ED Course: 14:47 Patient arrived in ED. em6 14:47 Bob Case MD is Attending Physician. rn 14:47 Maintain EMS IV. Dressing intact. Good blood return noted. Site clean \\T\\ dry. Gauge \\T\\ em 6 site: 20g right hand. 14:51 Triage completed. em6 14:51 Arm band placed on. em6 14:52 Bed in low position. Call light in reach. Side rails up X 1. conveyor monitor on. Pulse em6 ox on. NIBP on. Warm blanket given. 15:02 Berta Lara, RN is Primary Nurse. em6 15:22 Basic Metabolic Panel Sent. em6 15:22 CBC with Diff Sent. em6 15:22 NT PRO-BNP Sent. em6 15:22 PT-INR Sent. em6 15:22 Troponin HS Sent. em6 15:38 Chest Abd Pelvis Wo Con In Process Unspecified. EDMS 16:14 XRAY Chest (1 view) In Process Unspecified. EDMS 16:14 IV discontinued, patient accidently removed IV. em6 16:36 Tracy Justice MD is Referral Physician. rn 16:52 No provider procedures requiring assistance completed. em6 Administered Medications: No medications were administered Medication: 16:53 VIS not applicable for this client. em6 Outcome: 16:36 Discharge ordered by . rn 16:53 Discharged to home via wheelchair. em6 16:53 Condition: stable 16:53 Discharge instructions given to patient, Instructed on discharge instructions, follow up and referral plans. Demonstrated understanding of instructions, follow-up care. 16:58 Patient left the ED. em6 Signatures: Dispatcher [employer] EDBob Claire MD MD rn Martinez, Erika, RN RN em6
[2022-10-03 21:02] VITALS: TEMP 98.1
[2022-10-03 21:04] VITALS: BP 125/79; O2SAT 97
--- NOTE | 2022-10-04 16:01 | EKG ---
Test Date: 2022-10-03 Test Time: 15:08:22 Entry Level Civil Engineer: MEASUREMENT RESULTS: Intervals: Rate: 69 ME: 208 QRSD: 90 QT: 418 QTc: 447 [place]: P: 23 ME: 208 QRS: 25 T: 49 INTERPRETIVE STATEMENTS: Normal sinus rhythm Possible Left atrial enlargement Nonspecific T wave abnormality Abnormal ECG Compared to ECG 08/22/2022 05:48:07 T-wave abnormality now present Electronically Signed On 10-04-22 16:00:10 DRY ROLLER by Tay Mansfield
== END 2022-10-03 16:58 | disposition home or self-care (01) ==
LOC: SUPCPDRO 14:38 → ER 14:38
DX: I10 Essential (primary) hypertension (principal); Z95.1 Presence of aortocoronary bypass graft; Z88.0 Allergy status to penicillin; Z88.1 Allergy status to other antibiotic agents; Z91.041 Radiographic dye allergy status
CPT/HCPCS: 36415; 71045; 71250; 74176; 80048; 83880; 84484; 85025; 85610; 93005

== ENCOUNTER 2023-01-18 13:26 | Emergency (ER) | payer OTHER ==
--- OUTSIDE RECORDS SUMMARY | 2023-01-18 13:43 | XMS REPORT | Continuity of Care Document ---
:1935 Author Organization [facility] t Address [address] [address] Care Team Providers Name Role Phone Kirit [...] Facility Department ID 2022-07-05 Outpatient SHAKIR Justice [facility] [id number] Common 13:32:01 Kirit [id number] [facility] Results This patient has no known results.
[2023-01-18 14:49] LABS: Absolute Lymphocytes (CBC) 1.5 K/uL (0.7-4.9); Hematocrit 39.5 % (39.6-49.0); Lymphocytes % 26.7 % (15.3-44.8); MCV 91.9 fL (80-100); MPV 7.9 fL (7.6-11.3)
[2023-01-18 15:08] LABS: Albumin 3.5 g/dL (3.4-5.0); Bilirubin Total 0.3 mg/dL (0.2-1.0); Magnesium 2.2 mg/dL (1.6-2.4); Potassium 4.2 mEq/L (3.5-5.1); Protein, Total 7.2 g/dL (6.4-8.2); Troponin High Sensitivity 18.5 pg/mL (<58.9)
--- NOTE | 2023-01-18 15:17 | RAD REPORT ---
EXAM DESCRIPTION: Karlee Single View01/18/2023 2:59 pm CLINICAL HISTORY: Palpitations COMPARISON: 2021 FINDINGS: The lungs appear clear of acute infiltrate. The heart is mildly enlarged. Postsurgical changes involve chest IMPRESSION: No acute abnormalities displayed
[2023-01-18 16:53] VITALS: TEMP 97.6
[2023-01-18 16:54] VITALS: O2SAT 96
--- NOTE | 2023-01-18 16:54 | ER ---
Nurse's Notes [facility] Name: Thomas Glass Jr Age: 87 yrs Sex: Male : 1935 Arrival Date: 01/18/2023 Time: 13:45 Bed 14 Private MD: Diagnosis: Palpitations Presentation: 01/18 13:45 Chief complaint: EMS states: patient from [facility], patient woke up this morning kr3 not feeling well, went to lunch and when he was walking back to his room felt like his heart was beating fast so he took his blood pressure and his HR was in the 130's so he called 911. Coronavirus screen: Vaccine status: Patient reports receiving the 2nd dose of the covid vaccine. Ebola Screen: Patient denies travel to an Ebola-affected area in the 21 days before illness onset. Initial Sepsis Screen: Does the patient meet any 2 criteria? No. Patient's initial sepsis screen is negative. Does the patient have a suspected source of infection? No. Patient's initial sepsis screen is negative. Risk Assessment: Do you want to hurt yourself or someone else? Patient reports no desire to harm self or others. Onset of symptoms was January 18, 2023. 13:45 Method Of Arrival: EMS: [facility] kr3 13:45 Acuity: NI 3 kr3 Triage Assessment: 16:48 General: Appears in no apparent distress. Behavior is calm, cooperative, appropriate ll1 for age. Pain: Denies pain. Historical: - Allergies: 13:50 Ciprofloxacin HCl; kr3 13:50 Iodinated Contrast Media - IV Dye; kr3 13:50 PENICILLINS; kr3 - PMHx: 13:50 ATHEROSCLEROSIS; BPH; Cholelithiasis; GERD; High Cholesterol; Hypertension; kr3 Hypothyroidism; - PSHx: 13:50 Coronary artery bypass graft; kr3 - Immunization history:: Adult Immunizations up to date. - Social history:: Smoking status: Patient/guardian denies using tobacco, the patient reports quitting approximately 20 years ago. - Family history:: not pertinent. Screenin:47 [facility] ED Fall Risk Assessment (Adult) Score/Fall Risk Level 0 - 2 = Low Risk ll1 Oriented to surroundings, Maintained a safe environment, Educated pt \T\ family on fall prevention, incl call for assistance when getting out of bed, Hourly rounding (assess needs \T\ fall precautionary measures) done. Abuse screen: Denies threats or abuse. Nutritional screening: No deficits noted. Tuberculosis screening: No symptoms or risk factors identified. Assessment: 14:53 Reassessment: No changes from previously documented assessment. Patient and/or family jl7 updated on plan of care and expected duration. Pain level reassessed. Patient is alert, oriented x 3, equal unlabored respirations, skin warm/dry/pink. 16:47 Reassessment: No changes from previously documented assessment. Patient and/or family ll1 updated on plan of care and expected duration. Pain level reassessed. Patient is alert, oriented x 3, equal unlabored respirations, skin warm/dry/pink. Vital Signs: 13:45 BP 125 / 69; Pulse 96; Resp 18; Temp 97.6(O); Pulse Ox 98% on R/A; kr3 13:50 Weight 83.91 kg; Height 5 ft. 5 in. ; kr3 14:52 BP 121 / 79; Pulse 89; Resp 17; Pulse Ox 96% ; jl7 16:47 BP 121 / 71; Pulse 87; Resp 16; Pulse Ox 96% ; ll1 13:50 Body Mass Index 30.79 (83.91 kg, 165.1 cm) kr3 ED Course: 13:45 Patient arrived in ED. kr3 13:45 Tamia Bell, MARIANN is Primary Nurse. ll1 13:45 Arm band placed on Patient placed in an exam room, on a stretcher. ll1 13:48 Romeo Vee MD is Attending Physician. rt 13:50 Triage completed. kr3 14:39 Inserted saline lock: 22 gauge in right antecubital area, using aseptic technique. jl7 Blood collected. 15:01 Chest Single View XRAY In Process Unspecified. EDMS 16:47 No provider procedures requiring assistance completed. IV discontinued, intact, ll1 bleeding controlled, No redness/swelling at site. Pressure dressing applied. 16:48 Patient has correct armband on for positive identification. Bed in low position. Call ll1 light in reach. Side rails up X2. Client placed on continuous cardiac and pulse oximetry monitoring. NIBP monitoring applied. cardiac monitor technician on. Administered Medications: No medications were administered Medication: 16:48 VIS not applicable for this client. ll1 Outcome: 16:04 Discharge ordered by . rt 16:48 Discharged to home ambulatory. ll1 16:48 Condition: stable 16:48 Discharge instructions given to patient, Instructed on discharge instructions, follow up and referral plans. Demonstrated understanding of instructions, follow-up care. 16:48 Patient left the ED. ll1 Signatures: Dispatcher [employer] EDIvis Thayer RN RN jl7 Tamia Bell RN RN ll1 Chary Clavillo RN RN kr3 Romeo Vee MD MD rt
--- NOTE | 2023-01-18 16:54 | EDPHYS ---
Physician Documentation [facility] Name: Thomas Glass Jr Age: 87 yrs Sex: Male : 1935 Arrival Date: 01/18/2023 Time: 13:45 Bed 14 Private MD: ED Physician Romeo Vee HPI: 01/18 14:13 This 87 yrs old Male presents to ER via EMS with complaints of Rapid heartbeat. rt 14:13 Patient presents to the ED with report of rapid heartbeat. Patient states that he was rt feeling well until was walking back from lunch. States that he felt palpitations, heart racing, stating that his heart rate at that time it was about 130. Has improved,, but not resolved. He denies chest pain, acute complaints, symptoms are moderate severity, no other aggravating or elevating factors.. Historical: - Allergies: 13:50 Ciprofloxacin HCl; kr3 13:50 Iodinated Contrast Media - IV Dye; kr3 13:50 PENICILLINS; kr3 - PMHx: 13:50 ATHEROSCLEROSIS; BPH; Cholelithiasis; GERD; High Cholesterol; Hypertension; kr3 Hypothyroidism; - PSHx: 13:50 Coronary artery bypass graft; kr3 - Immunization history:: Adult Immunizations up to date. - Social history:: Smoking status: Patient/guardian denies using tobacco, the patient reports quitting approximately 20 years ago. - Family history:: not pertinent. ROS: 14:13 Constitutional: Negative for fever, chills, and weight loss, Respiratory: Negative for rt shortness of breath, cough, wheezing, and pleuritic chest pain, Abdomen/GI: Negative for abdominal pain, nausea, vomiting, diarrhea, and constipation, MS/Extremity: Negative for injury and deformity, Skin: Negative for injury, rash, and discoloration, Neuro: Negative for headache, weakness, numbness, tingling, and seizure, Psych: Negative for depression, anxiety, suicide ideation, homicidal ideation, and hallucinations. 14:13 Cardiovascular: Positive for palpitations, Negative for chest pain. Exam: 14:13 Constitutional: This is a well developed, well nourished patient who is awake, alert, rt and in no acute distress. Head/Face: Normocephalic, atraumatic. Chest/axilla: Normal chest wall appearance and motion. Nontender with no deformity. No lesions are appreciated. Respiratory: Lungs have equal breath sounds bilaterally, clear to auscultation and percussion. No rales, rhonchi or wheezes noted. No increased work of breathing, no retractions or nasal flaring. Abdomen/GI: Soft, non-tender, with normal bowel sounds. No distension or tympany. No guarding or rebound. No evidence of tenderness throughout. Skin: Warm, dry with normal turgor. Normal color with no rashes, no lesions, and no evidence of cellulitis. MS/ Extremity: Pulses equal, no cyanosis. Neurovascular intact. Full, normal range of motion. Neuro: Awake and alert, GCS 15, oriented to person, place, time, and situation. Cranial nerves II-XII grossly intact. Motor strength 5/5 in all extremities. Sensory grossly intact. Cerebellar exam normal. Normal gait. Psych: Awake, alert, with orientation to person, place and time. Behavior, mood, and affect are within normal limits. 14:13 Cardiovascular: 3/5 systolic murmur present, regular rate and rhythm. 14:52 ECG was reviewed by the Attending Physician. rt Vital Signs: 13:45 BP 125 / 69; Pulse 96; Resp 18; Temp 97.6(O); Pulse Ox 98% on R/A; kr3 13:50 Weight 83.91 kg; Height 5 ft. 5 in. ; kr3 14:52 BP 121 / 79; Pulse 89; Resp 17; Pulse Ox 96% ; jl7 16:47 BP 121 / 71; Pulse 87; Resp 16; Pulse Ox 96% ; ll1 13:50 Body Mass Index 30.79 (83.91 kg, 165.1 cm) kr3 MDM: 13:54 Patient medically screened. rt 16:33 Differential diagnosis: Dysrhythmia, dehydration, physiologic response, electrolyte rt disturbance, anemia. Data reviewed: vital signs, nurses notes, lab test result(s), EKG, radiologic studies. Consideration of Admission/Observation Escalation of care including admission/observation considered. Independent interpretation of the following test(s) in the Emergency Department X-Ray: My interpretation is No consolidation seen on interpretation of the x-ray images. Test considered but Not performed: CT: Low suspicion for PE, CT angiogram not indicated. Care significantly affected by the following chronic conditions: Hypertension. Counseling: I had a detailed discussion with the patient and/or guardian regarding: the historical points, exam findings, and any diagnostic results supporting the discharge/admit diagnosis, lab results, radiology results, the need for outpatient follow up. ED course: Tachycardia resolved in the ED without treatment. He is asymptomatic. Benign labs, x-ray, EKG. Admission not likely to benefit patient at this time, is comfortable for discharge. Patient to return if symptoms worsen or for new concerning symptoms.. 01/18 14:02 Order name: CBC with Diff; Complete Time: 15:09 rt 01/18 14:02 Order name: CMP; Complete Time: 15:09 rt 01/18 14:02 Order name: Troponin High Sensitivity; Complete Time: 15:09 rt 01/18 14:02 Order name: Magnesium; Complete Time: 15: rt 01/18 14:02 Order name: CPK; Complete Time: 15: rt 01/18 14:02 Order name: Chest Single View XRAY; Complete Time: 15:56 rt 01/18 14:02 Order name: EKG; Complete Time: 14: rt 01/18 14:02 Order name: EKG - Nurse/Tech; Complete Time: 14:52 rt EC:52 Rate is 82 beats/min. Rhythm is regular, Normal Sinus Rhythm with No ectopy. QRS [place] rt is Normal. [place] interval is normal. QRS interval is normal. QT interval is normal. No Q waves. Clinical impression: NSR w/ Non-specific ST/T Changes. Administered Medications: No medications were administered Disposition Summary: 01/18/23 16:04 Discharge Ordered Location: Home rt Problem: new rt Symptoms: are resolved rt Condition: Stable rt Diagnosis - Palpitations rt Followup: rt - With: Private Physician - When: 2 - 3 days - Reason: Discharge Instructions: - Discharge Summary Sheet rt - Palpitations rt Forms: - Medication Reconciliation Form rt - Thank You Letter rt - Antibiotic Education rt - Prescription Opioid Use rt Signatures: Dispatcher [employer] EDMS Chary Calvillo RN RN kr3 Romeo Vee MD MD rt
[2023-01-18 16:56] VITALS: BP 121/71
--- NOTE | 2023-01-21 12:35 | EKG ---
Test Date: 2023-01-18 Test Time: 14:48:19 Veterinarian Helper: VIRIL MEASUREMENT RESULTS: Intervals: Rate: 82 [place]: 210 QRSD: 84 QT: 392 QTc: 457 [place]: P: 64 [place]: 210 QRS: 69 T: 31 INTERPRETIVE STATEMENTS: Sinus rhythm with 1st degree AV block Compared to ECG 10/03/2022 15:08:22 First degree AV block now present T-wave abnormality no longer present Electronically Signed On 01-21-23 12:28:05 CDT by Tay Mansfield
== END 2023-01-18 16:48 | disposition home or self-care (01) ==
LOC: ER 13:26
DX: R00.2 Palpitations (principal); I10 Essential (primary) hypertension; Z95.1 Presence of aortocoronary bypass graft; Z88.0 Allergy status to penicillin; Z88.1 Allergy status to other antibiotic agents; Z91.041 Radiographic dye allergy status
CPT/HCPCS: 36415; 71045; 80053; 82550; 83735; 84484; 85025; 93005; 99284

== ENCOUNTER 2023-08-29 11:36 | Emergency (ER) | payer OTHER ==
--- OUTSIDE RECORDS SUMMARY | 2023-08-29 11:39 | XMS REPORT | Continuity of Care Document ---
:1935 Author Organization [facility] t Address [address] [address] Care Team Providers Name Role Phone Kirit [...] ID 2022-07-[address] [facility] [id number] Common 13:32:[address] [id number] [facility] Results This patient has no known results.
[2023-08-29 12:22] LABS: Absolute Lymphocytes (CBC) 1.6 K/uL (0.7-4.9); Hematocrit 41.3 % (39.6-49.0); Lymphocytes % 29.5 % (15.3-44.8); MCV 93.3 fL (80-100); MPV 8.3 fL (7.6-11.3); Platelets 174 thou/uL (152-406); RBC Red Blood Cell Count 4.43 M/uL (4.33-5.43)
[2023-08-29 12:26] LABS: Protime INR 2.46
[2023-08-29 12:36] LABS: Albumin 3.4 g/dL (3.4-5.0); Bilirubin Direct 0.1 mg/dL (0-0.2); Bilirubin Indirect, Calculated 0.3 mg/dL (0.2-0.8); Bilirubin Total 0.4 mg/dL (0.2-1.0); Potassium 4.8 mEq/L (3.5-5.1); Protein, Total 7.1 g/dL (6.4-8.2); Troponin High Sensitivity 8.9 pg/mL (<58.9)
--- NOTE | 2023-08-29 13:57 | RAD REPORT ---
EXAM DESCRIPTION: CT - Head Brain Wo Cont - 08/29/2023 12:16 pm CLINICAL HISTORY: HEADACHE COMPARISON: Head Brain Wo Cont dated 06/01/2016; Head Brain Wo Cont dated 04/09/2016 TECHNIQUE: Noncontrast head CT images were obtained without IV contrast. Multiplanar reformats were generated and reviewed. All CT scans are performed using dose optimization technique as appropriate and may include automated exposure control or mA/KV adjustment according to patient size. FINDINGS: No intracranial hemorrhage, mass, or edema. Midline structures are unremarkable. Mild diffuse parenchymal volume loss. Stable ventricular caliber for age. Glover-white matter differentiation is preserved, without evidence of acute infarct. Stable mineralizat ion of the basal ganglia and dentate nuclei. No abnormal extra-axial fluid collections. Patchy opacification the left mastoid air cells. Visualized portions of the paranasal sinuses are annika ar. No acute bony findings. IMPRESSION: No evidence of an acute intracranial process.
--- NOTE | 2023-08-29 14:03 | EDPHYS ---
Physician Documentation [facility] Name: Thomas Glass Jr Age: 87 yrs Sex: Male : 1935 Arrival Date: 08/29/2023 Time: 11:36 Bed 13 Private MD: ED Physician Suhas Vegas HPI: 08/29 11:49 This 87 yrs old Male presents to ER via EMS with complaints of High Blood Pressure. sp3 11:49 87-year-old male with extensive past medical history including hypertension, paroxysmal sp3 atrial fibrillation currently on Xarelto, among others now presents to the ED with chief complaint hypotension and mild dizziness that is now resolved. Maximum blood pressure is self recorded was 210/100. For EMS he was initially 180 systolically and has come down with last reading at 145/80. Patient currently has no symptoms whatsoever and denies headache, neck pain, chest pain, shortness of breath, back pain, abdominal pain, nausea, vomiting, diarrhea, syncope, near syncope, numbness or tingling, dizziness, focal neurological deficit, or any other signs or symptoms on ROS at this time.. Historical: - Allergies: 11:46 Ciprofloxacin HCl; kc6 11:46 Iodinated Contrast Media - IV Dye; kc6 11:46 PENICILLINS; kc6 - PMHx: 11:46 ATHEROSCLEROSIS; BPH; Cholelithiasis; GERD; High Cholesterol; Hypertension; kc6 Hypothyroidism; Myocardial infarction; - PSHx: 11:46 Coronary artery bypass graft; kc6 - Immunization history:: Adult Immunizations unknown. - Social history:: Smoking status: unknown. ROS: 11:50 Constitutional: Negative for fever, chills, and weight loss, Eyes: Negative for injury, sp3 pain, redness, and discharge, ENT: Negative for injury, pain, and discharge, Neck: Negative for injury, pain, and swelling, Cardiovascular: Negative for chest pain, palpitations, and edema, Respiratory: Negative for shortness of breath, cough, wheezing, and pleuritic chest pain, Abdomen/GI: Negative for abdominal pain, nausea, vomiting, diarrhea, and constipation, Back: Negative for injury and pain, MS/Extremity: Negative for injury and deformity, Skin: Negative for injury, rash, and discoloration, Psych: Negative for depression, anxiety, suicide ideation, homicidal ideation, and hallucinations, Allergy/Immunology: Negative for hives, rash, and allergies, Endocrine: Negative for neck swelling, polydipsia, polyuria, polyphagia, and marked weight changes, Hematologic/Lymphatic: Negative for swollen nodes, abnormal bleeding, and unusual bruising, 11:50 All other systems are negative, Exam: 11:51 Constitutional: This is a well developed, well nourished patient who is awake, alert, sp3 and in no acute distress. Head/Face: Normocephalic, atraumatic. Eyes: Pupils equal round and reactive to light, extra-ocular motions intact. Lids and lashes normal. Conjunctiva and sclera are non-icteric and not injected. Cornea within normal limits. Periorbital areas with no swelling, redness, or edema. ENT: Nares patent. No nasal discharge, no septal abnormalities noted. External auditory canals are clear. Oropharynx with no redness, swelling, or masses, exudates, or evidence of obstruction, uvula midline. Mucous membranes moist. Neck: Trachea midline, no thyromegaly or masses palpated, and no cervical lymphadenopathy. Supple, full range of motion without nuchal rigidity, or vertebral point tenderness. No Meningismus. Chest/axilla: Normal chest wall appearance and motion. Nontender with no deformity. No lesions are appreciated. Cardiovascular: Regular rate and rhythm with a normal S1 and S2. No gallops, murmurs, or rubs. Normal PMI, no JVD. No pulse deficits. Respiratory: Lungs have equal breath sounds bilaterally, clear to auscultation and percussion. No rales, rhonchi or wheezes noted. No increased work of breathing, no retractions or nasal flaring. Abdomen/GI: Soft, non-tender, with normal bowel sounds. No distension or tympany. No guarding or rebound. No evidence of tenderness throughout. Back: No spinal tenderness. No costovertebral tenderness. Full range of motion. Skin: Warm, dry with normal turgor. Normal color with no rashes, no lesions, and no evidence of cellulitis. MS/ Extremity: Pulses equal, no cyanosis. Neurovascular intact. Full, normal range of motion. Neuro: Awake and alert, GCS 15, oriented to person, place, time, and situation. Cranial nerves II-XII grossly intact. Motor strength 5/5 in all extremities. Sensory grossly intact. Cerebellar exam normal. Normal gait. Psych: Awake, alert, with orientation to person, place and time. Behavior, mood, and affect are within normal limits. 12:24 ECG was reviewed by the Attending Physician. EKG demonstrates normal sinus rhythm with sp3 first-degree AV block with a NH interval of 210, normal QRS, normal axis, nonspecific diffuse ST/T changes without evidence of acute ischemia. Vital Signs: 11:44 BP 157 / 69; Pulse 67; Resp 16 S; Temp 98.2(O); Pulse Ox 99% on R/A; Weight 83.01 kg kc6 (R); Height 5 ft. 7 in. (R); Pain 0/10; 12:55 BP 105 / 55; Pulse 56; Resp 18 S; Pulse Ox 95% on R/A; kc6 13:54 BP 129 / 62; Pulse 63; Resp 20 S; Pulse Ox 98% on R/A; kc6 11:44 Body Mass Index 28.66 (83.01 kg, 170.18 cm) kc6 11:44 Pain Scale: Adult kc6 MDM: 11:43 Patient medically screened. sp3 11:51 Data reviewed: vital signs, nurses notes, old medical records, lab test result(s), EKG, sp3 radiologic studies. ED course: 57-year-old male with now resolved hypotensive episode. Will assess for endorgan damage with CT scan of the head, laboratory values including creatinine and troponin, EKG and general observation. Current blood pressure is 157/69. Remainder vital signs are normal. Clinically I have a low suspicion for intracranial hemorrhage, CVA, acute coronary syndrome, vascular pathology including dissection and/or aneurysm, sepsis, shock, or any other critical pathology at this time. With confirmatory work-up above, we will safely discharge patient home assuming his BP remains in the range it is now. Patient is okay with this plan and I have answered all questions at this time.. 08/29 11:43 Order name: Basic Metabolic Panel; Complete Time: 12:48 sp3 08/29 11:43 Order name: CBC with Diff; Complete Time: 12:48 sp3 08/29 11:43 Order name: Hepatic Function; Complete Time: 12:48 sp3 08/29 11:43 Order name: Magnesium; Complete Time: 12:48 sp3 08/29 11:43 Order name: Protime (+inr); Complete Time: 12:48 sp3 08/29 11:43 Order name: Ptt, Activated; Complete Time: 12:48 sp3 08/29 11:43 Order name: Troponin High Sensitivity; Complete Time: 12:48 sp3 08/29 11:43 Order name: CT Head Brain wo Cont; Complete Time: 14:02 sp3 08/29 11:43 Order name: EKG; Complete Time: 11:44 sp3 08/29 11:43 Order name: Cardiac monitoring; Complete Time: 12:12 sp3 08/29 11:43 Order name: EKG - Nurse/Tech; Complete Time: 12:12 sp3 08/29 11:43 Order name: IV Saline Lock; Complete Time: 12:12 sp3 08/29 11:43 Order name: Labs collected and sent; Complete Time: 12:12 sp3 08/29 11:43 Order name: O2 Sat Monitoring; Complete Time: 11:48 sp3 Administered Medications: No medications were administered Disposition Summary: 08/29/23 14:02 Discharge Ordered Notes: Location: Home sp3 Condition: Stable sp3 Diagnosis - Hypertensive urgency, resolved sp3 Followup: sp3 - With: Private Physician - When: Upon discharge from the Emergency Department - Reason: Continuance of care Discharge Instructions: - Discharge Summary Sheet sp3 - Hypertension, Adult sp3 Forms: - Medication Reconciliation Form sp3 - Thank You Letter sp3 - Antibiotic Education sp3 - Prescription Opioid Use sp3 - Patient Portal Instructions sp3 - Leadership Thank You Letter sp3 Signatures: Dispatcher [employer] Suhas Jackson MD MD sp3 Susan Canela RN RN kc6
--- NOTE | 2023-08-29 14:03 | ER ---
Nurse's Notes [facility] Name: Thomas Glass Jr Age: 87 yrs Sex: Male : 1935 Arrival Date: 08/29/2023 Time: 11:36 Bed 13 Private MD: Diagnosis: Hypertensive urgency, resolved Presentation: 08/29 11:44 Chief complaint: EMS states: they were toned out to [facility] for HTN with kc6 dizziness. BP was originally 200 systolic. pt denies cp or sob. Coronavirus screen: At this time, the client does not indicate any symptoms associated with coronavirus-19. Ebola Screen: No symptoms or risks identified at this time. Initial Sepsis Screen: Does the patient meet any 2 criteria? No. Patient's initial sepsis screen is negative. Does the patient have a suspected source of infection? No. Patient's initial sepsis screen is negative. Risk Assessment: Do you want to hurt yourself or someone else? Patient reports no desire to harm self or others. Onset of symptoms was August 29, 2023. 11:44 Method Of Arrival: EMS: [facility] kc6 11:44 Acuity: NI 3 kc6 Triage Assessment: 11:46 General: Appears in no apparent distress. comfortable, Behavior is calm, cooperative, kc6 appropriate for age. Pain: Denies pain. EENT: No signs and/or symptoms were reported regarding the EENT system. Neuro: Level of Consciousness is awake, alert, obeys commands, Oriented to person, place, time, situation, Appropriate for age Reports dizziness, headache. Cardiovascular: Denies chest pain, Capillary refill < 3 seconds. Respiratory: Airway is patent Trachea midline Respiratory effort is even, unlabored, Respiratory pattern is regular, symmetrical, Denies shortness of breath. GI: No signs and/or symptoms were reported involving the gastrointestinal system. : No signs and/or symptoms were reported regarding the genitourinary system. Derm: No signs and/or symptoms reported regarding the dermatologic system. Skin is intact, is healthy with good turgor, Skin is pink, warm \T\ dry. Musculoskeletal: No signs and/or symptoms reported regarding the musculoskeletal system. Circulation, motion, and sensation intact. Capillary refill < 3 seconds, Range of motion: intact in all extremities. Historical: - Allergies: 11:46 Ciprofloxacin HCl; kc6 11:46 Iodinated Contrast Media - IV Dye; kc6 11:46 PENICILLINS; kc6 - PMHx: 11:46 ATHEROSCLEROSIS; BPH; Cholelithiasis; GERD; High Cholesterol; Hypertension; kc6 Hypothyroidism; Myocardial infarction; - PSHx: 11:46 Coronary artery bypass graft; kc6 - Immunization history:: Adult Immunizations unknown. - Social history:: Smoking status: unknown. Screenin:47 [facility] ED Fall Risk Assessment (Adult) History of falling in the last 3 months, kc6 including since admission No falls in past 3 months (0 pts) Confusion or Disorientation No (0 pts) Intoxicated or Sedated No (0 pts) Impaired Gait No (0 pts) Mobility Assist Device Used No (0 pt) Altered Elimination No (0 pt) Score/Fall Risk Level 0 - 2 = Low Risk. Abuse screen: Denies threats or abuse. Denies injuries from another. Nutritional screening: No deficits noted. Tuberculosis screening: No symptoms or risk factors identified. Assessment: 11:44 Reassessment: please see triage assessment. [facility] 12:44 Reassessment: Patient appears in no apparent distress at this time. No changes from [facility] previously documented assessment. Patient and/or family updated on plan of care and expected duration. Pain level reassessed. Patient is alert, oriented x 3, equal unlabored respirations, skin warm/dry/pink. 13:44 Reassessment: Patient appears in no apparent distress at this time. No changes from [facility] previously documented assessment. Patient and/or family updated on plan of care and expected duration. Pain level reassessed. Patient is alert, oriented x 3, equal unlabored respirations, skin warm/dry/pink. 14:14 Reassessment: spoke with Nasrin from [facility]. stated she will send transport for [facility] the patient. Vital Signs: 11:44 BP 157 / 69; Pulse 67; Resp 16 S; Temp 98.2(O); Pulse Ox 99% on R/A; Weight 83.01 kg kc6 (R); Height 5 ft. 7 in. (R); Pain 0/10; 12:55 BP 105 / 55; Pulse 56; Resp 18 S; Pulse Ox 95% on R/A; kc6 13:54 BP 129 / 62; Pulse 63; Resp 20 S; Pulse Ox 98% on R/A; kc6 11:44 Body Mass Index 28.66 (83.01 kg, 170.18 cm) kc6 11:44 Pain Scale: Adult kc6 ED Course: 11:39 Patient arrived in ED. ll1 11:42 Suhas Vegas MD is Attending Physician. sp3 11:44 Susan Canela, RN is Primary Nurse. kc6 11:46 Triage completed. kc6 11:46 Arm band placed on. kc6 11:47 Patient has correct armband on for positive identification. Bed in low position. Call kc6 light in reach. Side rails up X 1. Client placed on continuous cardiac and pulse oximetry monitoring. NIBP monitoring applied. milk runner on. 12:12 Inserted saline lock: 22 gauge in left wrist, using aseptic technique. Blood collected. kc6 Patient maintains SpO2 saturation greater than 95% on room air. 12:16 CT Head Brain wo Cont In Process Unspecified. EDMS 14:30 No provider procedures requiring assistance completed. IV discontinued, intact, kc6 bleeding controlled, No redness/swelling at site. Pressure dressing applied. Administered Medications: No medications were administered Medication: 14:31 VIS not applicable for this client. kc6 Outcome: 14:02 Discharge ordered by . sp3 14:30 Discharged to [facility]. Report called to Nasrin [facility] 14:30 Condition: improved 14:30 Discharge instructions given to patient, Instructed on discharge instructions, follow up and referral plans. Demonstrated understanding of instructions, follow-up care, 14:31 Patient left the ED. kc6 Signatures: Dispatcher [employer] EDMS Tamia Bell RN RN ll1 Suhas Vegas MD MD sp3 Susan Canela, MARIANN RN kc6
[2023-08-29 15:05] VITALS: TEMP 98.2
[2023-08-29 15:07] VITALS: BP 129/62; O2SAT 98
== END 2023-08-29 14:31 | disposition home or self-care (01) ==
LOC: ER 11:36
DX: I16.0 Hypertensive urgency (principal); I10 Essential (primary) hypertension; E78.00 Pure hypercholesterolemia, unspecified; Z95.1 Presence of aortocoronary bypass graft; Z88.0 Allergy status to penicillin; Z88.1 Allergy status to other antibiotic agents; Z91.041 Radiographic dye allergy status
CPT/HCPCS: 36415; 70450; 80048; 80076; 83735; 84484; 85025; 85610; 85730; 93005; 99285

== ENCOUNTER → 2023-12-15 | Emergency (ER) | payer OTHER ==
--- OUTSIDE RECORDS SUMMARY | 2023-12-15 06:06 | XMS REPORT | Continuity of Care Document ---
Author Name Unknown Address [address] [place] [address] [place] [address] [employer] Address [address] [place] [address] [address] [place] [address] Care Team Providers Care Detective Bowling [place] Name Role Phone Kirit Justice Attending Clinician Unavailable Kirit Justice Admitting Clinician Unavailable Encounters Start Date/Time End Date/Time Encounter Type Admission Type Attending Clinicians Care Facility Care Department Encounter ID Source 2023-10-18 10:38:00 Outpatient Kirit Justice [facility] [id number] [facility] 2022-07-05 13:32:01 Outpatient Kirit Justice [facility] [id number] [facility]
[2023-12-15 06:22] LABS: Absolute Lymphocytes (CBC) 1.5 K/uL (0.7-4.9); Hematocrit 41.2 % (39.6-49.0); Lymphocytes % 32.5 % (15.3-44.8); MPV 8.8 fL (7.6-11.3); Platelets 164 thou/uL (152-406); RBC Red Blood Cell Count 4.43 M/uL (4.33-5.43)
[2023-12-15 06:41] LABS: Albumin 3.3 g/dL (3.4-5.0); Bilirubin Total 0.7 mg/dL (0.2-1.0); Potassium 3.8 mEq/L (3.5-5.1); Protein, Total 7.1 g/dL (6.4-8.2); Troponin High Sensitivity 11.6 pg/mL (<58.9)
--- NOTE | 2023-12-15 07:08 | RAD REPORT ---
EXAM DESCRIPTION: RAD - Chest Single View - 12/15/2023 6:30 am CLINICAL HISTORY: CHEST PAIN COMPARISON: 02/04/2023 FINDINGS: Lines: None. Lungs: No evidence of edema or pneumonia. Pleural: No significant pleural effusions or pneumothorax. Cardiac: Similar size and configuration. Mediastinum: Within normal limits. Bones: No acute fractures. Sternotomy . Other: None IMPRESSION: No acute cardiopulmonary disease.
--- NOTE | 2023-12-15 07:24 | RAD REPORT ---
EXAM DESCRIPTION: CTAbdomen Pelvis Wo Contrast - 12/15/2023 7:00 am CLINICAL HISTORY: ABD PAIN COMPARISON: Abdomen Pelvis W Contrast dated 04/14/2022; Abdomen Pelvis Wo Contrast dated 01/02/2021 ; Abdomen Pelvis Wo Contrast dated 08/07/2018; Abdomen Pelvis Wo Contrast dated 10/18/2016 TECHNIQUE: CT of the abdomen and pelvis was performed. All CT scans are performed using dose optimization technique as appropriate and may include automated exposure control or mA/KV adjustment according to patient size. FINDINGS: Lower chest: Mitral annular and coronary artery calcifications. Sternotomy. Liver: Minimal intrahepatic biliary duct dilatation which is similar. No suspicious mass. Biliary: No biliary ductal dilatation. Stomach: No significant focal abnormality. Duodenum: No significant focal abnormality. Pancreas: No significant abnormality. Spleen: No significant abnormality. Adrenal: No suspicious lesions. Kidney/ureter: No hydronephrosis. No renal calculi. Left upper pole renal cyst. Retroperitoneum: No retroperitoneal adenopathy. Vascular: Severe atherosclerosis with stenoses involving calcified plaque the SMA and bilateral hector c and femoral arteries. Note that this study was without IV contrast. Bowel: Diverticulosis without diverticulitis. No appendicitis. No bowel obstruction. Peritoneum: No ascites or free air. Bladder: Grossly unremarkable. Reproductive: No masses Bones: L3 through S1 fusion. Advanced degenerative changes are present at L1-2 and L2-3. Bone graft h arvest site and right iliac bone. Other: n/a IMPRESSION: No acute intra-abdominal or pelvic finding. Similar incidental findings as noted above.
--- NOTE | 2023-12-15 08:16 | EDPHYS ---
Physician Documentation [facility] Name: Thomas Glass Jr Age: 88 yrs Sex: Male : 1935 Arrival Date: 12/15/2023 Time: 06:03 Bed 5 Private MD: ED Physician Romeo Vee HPI: 12/15 06:08 This 88 yrs old Male presents to ER via Unassigned with complaints of abd ec2 pain. 06:08 Patient arrives today for evaluation of abdominal pain and reported chest pain. States ec2 that the symptoms started several hours ago. Denies any difficulty breathing, denies any nausea or vomiting, reports no previous abdominal surgical history. Does report a history of previous CABG. Denies urinary complaints.. Historical: - Allergies: 06:11 Ciprofloxacin HCl; jb4 06:11 Iodinated Contrast Media - IV Dye; jb4 06:11 PENICILLINS; jb4 - PMHx: 06:11 BPH; Hypertension; ATHEROSCLEROSIS; Cholelithiasis; High Cholesterol; GERD; jb4 Hypothyroidism; Myocardial infarction; - PSHx: 06:11 Coronary artery bypass graft; jb4 - Immunization history:: Adult Immunizations up to date. - Social history:: Smoking status: Patient denies any tobacco usage or history of. ROS: 06:08 Constitutional: as per hpi ec2 Exam: 06:08 Constitutional: GEN: NAD Head: atraumatic Eyes: EOMI Ears: External ears are ec2 normal. CV: regular rate LUNGS: no respiratory distress ABD: non-distended, soft, tender in the right lower quadrant, no guarding, not rigid SKIN: no evidence of rashes MSK: no evidence of trauma NEURO: moves all extremities equally Vital Signs: 06:04 BP 139 / 65; Pulse 54; Resp 16; Temp 98.1(TE); Pulse Ox 100% on R/A; Pain 5/10; jb4 07:59 BP 130 / 57; Pulse 45; Resp 16; Temp 98.1; Pulse Ox 97% on R/A; iw 06:04 Pain Scale: Adult jb4 MDM: 06:07 Patient medically screened. ec2 06:08 ED course: Patient arrives today for evaluation of abdominal pain and chest pain. ec2 Examination remarkable for well-appearing nontoxic dividual is otherwise in no acute distress with TTP in the right lower quadrant. Will obtain lab work, EKG, chest x-ray as well as CT imaging of the abdomen pelvis.. 06:17 Data reviewed: vital signs. ED course: EKG independently reviewed and interpreted by ec2 , shows normal sinus rhythm, first-degree AV block noted, no acute ST segment elevations, intervals otherwise nonconcerning.. 06:43 ED course: Metabolic profile reassuring, troponin within normal ranges.. ec2 06:43 Transition of care: After a detail discussion of the patient's case, care is ec2 transferred to Romeo Vee MD. 06:43 ED course: Will sign patient out with pending imaging.. ec2 06:59 ED course: Patient signed out to oncoming physician with pending CT imaging and ec2 reassessment.. 08:16 Differential diagnosis: Nonspecific chest pain, nonspecific abdominal pain, bowel rt obstruction, ACS. Consideration of Admission/Observation Escalation of care including admission/observation considered. Symptoms not consistent with an ACS, 2 negative troponins, does not require admission follow-up. Rest of workup is benign.. Test considered but Not performed: CT: Low suspicion for PE, aortic dissection, CT angiogram not indicated. Care significantly affected by the following chronic conditions: Hypertension. Counseling: I had a detailed discussion with the patient and/or guardian regarding the historical points, exam findings, and any diagnostic results supporting the discharge/admit diagnosis, lab results, radiology results, the need for outpatient follow up, to return to the emergency department if symptoms worsen or persist or if there are any questions or concerns that arise at home. Response to treatment: the patient's symptoms have markedly improved after treatment. 12/15 06:08 Order name: CBC with Diff; Complete Time: 06:37 ec2 12/15 06:08 Order name: Troponin HS; Complete Time: 06:42 ec2 12/15 06:08 Order name: CMP; Complete Time: 06:42 ec2 12/15 07:32 Order name: Troponin High Sensitivity; Complete Time: 08:13 rt 12/15 06:08 Order name: XRAY Chest (1 view); Complete Time: 07:25 ec2 12/15 07:01 Order name: Abdomen ; Complete Time: 07:25 EDMS 12/15 06:08 Order name: EKG; Complete Time: 06:08 ec2 12/15 06:08 Order name: Cardiac monitoring; Complete Time: 06:13 ec2 12/15 06:08 Order name: EKG - Nurse/Tech; Complete Time: 06:13 ec2 12/15 06:08 Order name: IV Saline Lock; Complete Time: 06:14 ec2 12/15 06:08 Order name: Labs collected and sent; Complete Time: 06:14 ec2 12/15 06:08 Order name: O2 Per Protocol; Complete Time: 06:14 ec2 12/15 06:08 Order name: O2 Sat Monitoring; Complete Time: 06:14 ec2 Administered Medications: No medications were administered Disposition Summary: 12/15/23 08:16 Discharge Ordered Notes: Location: Home rt Problem: new rt Symptoms: have improved rt Condition: Stable rt Diagnosis - Abdominal pain, unspecified rt - Chest pain, unspecified rt Followup: rt - With: Private Physician - When: 2 - 3 days - Reason: Discharge Instructions: - Discharge Summary Sheet rt - Abdominal Pain, Adult rt - Nonspecific Chest Pain, Adult rt Forms: - Medication Reconciliation Form rt - Thank You Letter rt - Antibiotic Education rt - Prescription Opioid Use rt - Patient Portal Instructions rt - Leadership Thank You Letter rt Signatures: Dispatcher [employer] Troy Bailey, RN RN jb4 Romeo Vee MD MD rt Timothy Rodriguez MD MD ec2 Corrections: (The following items were deleted from the chart) 07:01 06:08 Abdomen Pelvis W Con+CT.RAD.BRZ ordered. EDMS EDMS
--- NOTE | 2023-12-15 08:16 | ER ---
Nurse's Notes [facility] Name: Thomas Glass Jr Age: 88 yrs Sex: Male : 1935 Arrival Date: 12/15/2023 Time: 06:03 Bed 5 Private MD: Diagnosis: Abdominal pain, unspecified;Chest pain, unspecified Presentation: 12/15 06:04 Chief complaint: EMS states: Pt called reporting chest pain and RLQ pain. Currently jb4 reports the pain is 5/10. Pt reports taking amlodipine and clonidine. Was given 324 ASA. Coronavirus screen: At this time, the client does not indicate any symptoms associated with coronavirus-19. Ebola Screen: No symptoms or risks identified at this time. Initial Sepsis Screen: Does the patient meet any 2 criteria? No. Patient's initial sepsis screen is negative. Does the patient have a suspected source of infection? No. Patient's initial sepsis screen is negative. Risk Assessment: Do you want to hurt yourself or someone else? Patient reports no desire to harm self or others. Onset of symptoms was December 15, 2023. Transition of care: patient was received from another setting of care (long-term care facility), [facility]. 06:04 Method Of Arrival: EMS: [facility] jb4 06:04 Acuity: NI 3 jb4 Historical: - Allergies: 06:11 Ciprofloxacin HCl; jb4 06:11 Iodinated Contrast Media - IV Dye; jb4 06:11 PENICILLINS; jb4 - PMHx: 06:11 BPH; Hypertension; ATHEROSCLEROSIS; Cholelithiasis; High Cholesterol; GERD; jb4 Hypothyroidism; Myocardial infarction; - PSHx: 06:11 Coronary artery bypass graft; jb4 - Immunization history:: Adult Immunizations up to date. - Social history:: Smoking status: Patient denies any tobacco usage or history of. Screenin:16 [facility] ED Fall Risk Assessment (Adult) History of falling in the last 3 months, jb4 including since admission No falls in past 3 months (0 pts) Confusion or Disorientation No (0 pts). Abuse screen: Denies threats or abuse. Nutritional screening: No deficits noted. Tuberculosis screening: No symptoms or risk factors identified. Assessment: 06:16 General: Appears in no apparent distress. comfortable, Behavior is calm, cooperative, jb4 appropriate for age. Pain: Complains of pain in right lower quadrant Pain does not radiate. Pain currently is 5 out of 10 on a pain scale. Neuro: Level of Consciousness is awake, alert, obeys commands, Oriented to person, place, time, situation. Cardiovascular: Patient's skin is warm and dry. Respiratory: Airway is patent Respiratory effort is even, unlabored, Respiratory pattern is regular, symmetrical. GI: No signs and/or symptoms were reported involving the gastrointestinal system. : EENT: No signs and/or symptoms were reported regarding the EENT system. Derm: Skin is intact, Skin is pink, warm \T\ dry. Musculoskeletal: Circulation, motion, and sensation intact. Range of motion: intact in all extremities. 07:58 General: Appears in no apparent distress. comfortable, Behavior is calm, cooperative, iw appropriate for age. Neuro: Level of Consciousness is awake, alert, obeys commands, Moves all extremities. Cardiovascular: Capillary refill < 3 seconds in bilateral fingers Patient's skin is warm and dry. Respiratory: Respiratory effort is even, unlabored, Respiratory pattern is regular, symmetrical. GI: Abdomen is non-distended, Reports lower abdominal pain. GI:. Derm: Skin is intact, is healthy with good turgor. Musculoskeletal: Range of motion: intact in all extremities. 08:49 Reassessment: Patient appears in no apparent distress at this time. Patient and/or iw family updated on plan of care and expected duration. Pain level reassessed. Patient is alert, oriented x 3, equal unlabored respirations, skin warm/dry/pink. pt calling for a ride. 09:18 Reassessment: Patient appears in no apparent distress at this time. Patient and/or iw family updated on plan of care and expected duration. Pain level reassessed. Patient is alert, oriented x 3, equal unlabored respirations, skin warm/dry/pink. 09:25 Reassessment: taxi called, will be here in 30 min. iw Vital Signs: 06:04 BP 139 / 65; Pulse 54; Resp 16; Temp 98.1(TE); Pulse Ox 100% on R/A; Pain 5/10; jb4 07:59 BP 130 / 57; Pulse 45; Resp 16; Temp 98.1; Pulse Ox 97% on R/A; iw 06:04 Pain Scale: Adult jb4 ED Course: 06:04 Patient arrived in ED. jb4 06:07 Timothy Rodriguez MD is Attending Physician. ec2 06:11 Triage completed. jb4 06:11 Arm band placed on right wrist. jb4 06:16 Inserted saline lock: 20 gauge in right antecubital area, using aseptic technique. km8 Blood collected. 06:32 XRAY Chest (1 view) In Process Unspecified. EDMS 06:59 Attending Physician role handed off by Timothy Rodriguez MD ec2 06:59 Romeo Vee MD is Attending Physician. ec2 07:01 Abdomen In Process Unspecified. EDMS 07:15 Kerri Jeter, RN is Primary Nurse. iw 08:50 Patient has correct armband on for positive identification. Provided Education on: . iw 08:50 No provider procedures requiring assistance completed. iw 09:38 IV discontinued, intact, bleeding controlled, No redness/swelling at site. Pressure iw dressing applied. Administered Medications: No medications were administered Medication: 06:16 VIS not applicable for this client. jb4 Outcome: 08:16 Discharge ordered by . rt 10:00 Discharged to home ambulatory, iw 10:00 Condition: good 10:00 Discharge instructions given to patient, Instructed on discharge instructions, follow up and referral plans. Demonstrated understanding of instructions, follow-up care, 10:00 Patient left the ED. iw Signatures: Dispatcher [employer] Kerri Dior, RN MARIANN iw Troy Waldron RN RN jb4 Romeo Vee MD MD rt Timothy Rodriguez MD MD ec2 Yumiko Rose RN RN [id number] Corrections: (The following items were deleted from the chart) 06:21 06:04 Transition of care: patient was not received from another setting of care. jb4 jb4
[2023-12-15 10:19] VITALS: BP 130/57; TEMP 98.1; O2SAT 97
--- NOTE | 2023-12-16 10:56 | EKG ---
Test Date: 2023-12-15 Test Time: 06:10:03 Lead Operator: RAFAEL MEASUREMENT RESULTS: Intervals: Rate: 52 OH: 228 QRSD: 86 QT: 480 QTc: 446 Tamms: P: -13 OH: 228 QRS: 17 T: 33 INTERPRETIVE STATEMENTS: Sinus bradycardia with 1st degree AV block Otherwise normal ECG Compared to ECG 08/29/2023 11:54:07 Sinus rhythm no longer present Electronically Signed On 12-16-23 10:55:27 POWER [employer]WORK[employer] by Cale Padilla
== END ==
LOC: ER 06:03
DX: R10.31 Right lower quadrant pain (principal); R07.9 Chest pain, unspecified; I10 Essential (primary) hypertension; I25.2 Old myocardial infarction; Z95.1 Presence of aortocoronary bypass graft; Z88.0 Allergy status to penicillin; Z88.1 Allergy status to other antibiotic agents; Z91.041 Radiographic dye allergy status
CPT/HCPCS: 36415; 71045; 74176; 80053; 84484; 85025; 93005